=== PATIENT | male | born 1940 | race Caucasian/White ===

== ENCOUNTER 2019-10-07 00:32 | Day surgery (SDC) | payer MEDICARE, BC, SELFPAY ==
[2019-09-25 08:39] VITALS: BP 119/65; PULSE 94; RESP 18; TEMP 36.7; O2SAT 96; BMI 26.7
[2019-10-07] VITALS (13 sets, daily range): BP systolic 112–141; BP diastolic 55–91; PULSE 78–95; RESP 8–20; TEMP 36.2–37.4; O2SAT 92–100
--- NOTE | ~2019-10-07 | XR_ITS ---
EXAMINATION: XR knee LT 2V DATE: 10/07/2019 10:24 INDICATION: Left knee arthroplasty. Postop. TECHNIQUE: 2 views of left knee were obtained. COMPARISON: Left knee radiographs 10/11/2017 FINDINGS: There is a total left knee arthroplasty in near-anatomic alignment with patellar resurfacin g. No fracture. There is gas in the knee joint and soft tissues, consistent with recent surgery. IMPRESSION: 1. Total left knee arthroplasty in near-anatomic alignment. Reviewed, dictated and finalized at location [facility]
[2019-10-07] MEDS: LACTATED RINGERS 1,000 ML 30 ML IV CONT ×2 (06:45→10:10)
--- NOTE | 2019-10-07 06:58 | WPDANESEPPF ---
Anes - Initial Pre Proc Eval Procedure: Operation Date: 10/07/19 07:30 Proposed Procedures p Left Total Knee Arthroplasty - Mansoor Haddad MD Date/Time: 10/07/19 06:58 Surgeon: Mansoor Haddad MD Pre Op Diagnosis: OA Left Knee Patient Data Age: 79 Gender: M Height: 1.91 m Weight: 97 kg Last Vital Signs Temp 36.7 C 09/25/19 08:39 Pulse 94 09/25/19 08:39 Resp 18 09/25/19 08:39 BP 119/65 09/25/19 08:39 Pulse Ox 96 09/25/19 08:39 Allergies Allergy/AdvReac Type Severity Reaction Status Date / Time Penicillins Allergy Mild Rash Verified 09/25/19 08:51 Home Medications Medication Instructions Recorded Confirmed Type aspirin 81 mg tablet,delayed 81 mg PO DAILY 09/17/19 09/25/19 History release calcium polycarbophil 625 mg tablet 1,250 mg PO BID 09/17/19 09/25/19 History ibuprofen 200 mg capsule 200 mg PO Q6H PRN 09/17/19 09/25/19 History lisinopril 10 0.5 tablet PO DAILY tablet 09/17/19 09/25/19 History mg-hydrochlorothiazide 12.5 mg tablet metformin 1,000 mg tablet 1,000 mg PO BID tablet 09/17/19 09/25/19 History polyethylene glycol 3350 17 17 gm PO HS 09/17/19 09/25/19 History gram/dose oral powder tamsulosin 0.4 mg capsule 0.4 mg PO DAILY 09/17/19 09/25/19 History ECG: Date of Service: 09/25/19 Procedure(s): CA 12 lead EKG Accession Number(s): [id number] cc: ~ Measurements Intervals Jaroso Rate: 87 P: 61 NV: 169 QRS: -7 QRSD: 104 T: 30 QT: 362 QTc: 436 Interpretive Statements SINUS RHYTHM BASELINE ARTIFACT- I, II, III, AVR, AVL, AVF NORMAL ECG Electronically Signed On 09-25-2019 9:23:16 LENDING ADVISOR by Dante Lacey D.O. Dictated By: Dante Lacey DO 09/25/19 0934 Other Studies: 2017 negative stress test Patient hx anesthesia problems: none Family hx anesthesia problems: none PMFSH Past Medical History Medical History (Updated 10/02/19 @ 09:30 by Christianne Curry PA-C) Cholecystitis Diabetes Essential hypertension Hyperlipidemia KEMI (iron deficiency anemia) Osteoarthritis of knee Preoperative clearance Type 2 diabetes mellitus without complication, without long-term current use of insulin Surgical History Surgical History History of appendectomy (~1969) History of cholecystectomy (~2008) Social History Social History Smoking status: Never smoker Alcohol intake: current Additional living arrangements comments: Elise Valladares Gender identity (if verbalized by the patient): Male Anes - Eval Final PreProcedure Day of Procedure 10/07/19 06:58 Patient weight: overweight Heart: regular rate and rhythm Lungs: clear to auscultation and normal air movement Airway: Mallampati scale class II Neurological: alert and oriented Last oral intake: >/= 8 hours ASA classification: III Emergent: no Anesthetic plan: proceed Anesthesia type and monitoring: general GIVS Informed Consent: The patient's anesthetic plan and its attendant risks and benefits were discussed with the patient/family/POA. Questions were solicited and answers provided to the satisfaction of the patient/family/POA.
[2019-10-07 07:00] LABS: Glucose Point of Care 129 (65-105)
[2019-10-07] MEDS: TRANEXAMIC ACID 1,000 MG in SODIUM CHLORIDE 0.9% IV 50 ML 120 MG IVPB (07:20)
--- NOTE | 2019-10-07 07:29 | WPDHPUPDATE1 ---
History and Physical Update Update Date/Time: 10/07/19 07:29 History and Physical has been reviewed, including an updated exam of the patient. There are NO changes in the patient's condition. Risks, benefits, and alternatives have been discussed and questions answered. Patient agrees to proceed with procedure.
[2019-10-07] MEDS: ceFAZolin 2 GM/D5W 50 ML 2 GM/50 ML BAG IVPB ×2 (07:35→16:23)
--- NOTE | 2019-10-07 07:47 | WPDANESPNB ---
Anes - Peripheral Nerve Block Date/Time: 10/07/19 07:47 I have discussed with the patient/family/POA the placement of a peripheral nerve block for post-operative pain management, including associated risks, benefits, complications, and side effects. Alternative methods of post-operative analgesia were detailed. Questions were solicited and answers provided to the satisfaction of the patient/family/POA. Time-Out: A pre-procedural Time-Out was completed immediately before starting the procedure and confirmed: Patient Identification, Site, Procedure, Patient Position and the Availability of Requisite Equipment. Clinical Indications: Acute post-operative pain management requested by the operative surgeon. Nerve Block Insertion Note Anes-nerve block: adductor canal left Patient position: supine Skin prep: chlorhexidine Needle: 22 gauge, stimulating, insulated echogenic needle. Needle length: 80 mm Technique: ultrasound Technique comment: in plane Injectate: bupivacaine 0.5% with epi 5 mcg/ml (30cc) Observations: tolerated well Complications: none Procedure start time:: 730 Procedure end time:: 735
[2019-10-07] MEDS: GENTAMICIN BONE CEMENT REFOBACIN 1 EACH TOPICAL (08:20)
[2019-10-07] MEDS: TRANEXAMIC ACID 1,000 MG in SODIUM CHLORIDE 0.9% IV 50 ML 120 MG TOPICAL (08:22)
[2019-10-07] MEDS: ceFAZolin SODIUM 1 GM VIAL IV PUSH (09:26)
--- NOTE | 2019-10-07 10:05 | P.OP_ITS ---
Procedure Note - Detailed Date of procedure: 10/07/19 Pre-op diagnosis: OA Left Knee Post-op diagnosis: same Procedure performed: Left total knee replacement Description of procedure: The patient was identified and proper site identified. In the preop holding area the anesthesia team performed a left sub sartorial block after which the patient was taken to the operating room and transferred to the OR table positioning supine taking care to pad the torso and extremities. After general anesthetic induction and intubation a nonsterile tourniquet was placed high on the left thigh. The left lower extremity was prepped and draped in the usual sterile fashion. The extremity was exsanguinated and with the knee flexed tourniquet was inflated to 300 mmHg remaining up for approximately 65 minutes. An anterior midline incision was made and a mid vastus approach was used. Infra and suprapatellar fat pads were excised. Patella was resected leaving 15 mm thickness and prepared for the 34 round three peg component. Using the intramedullary guide the distal femur was cut in the proper orientation for the size 70 femoral component. Using the extramedullary guide the tibia was cut perpendicular to the long axis protecting collateral ligaments and popliteal structures. It was sized to a 79. Flexion and extension gaps were balanced. Trial reduction was undertaken and the weight-bearing line was noted to passed through the center of the joint. Proximal tibia was drilled and punched in the proper orientation for the real component. Trial components were removed. The bone surfaces were washed with pulsatile lavage and dried. The real components were cemented simultaneously. The knee was held in extension and the patella held clamped until the cement had cured. Excess cement was removed from the joint. After trialing it was determined that the 16 mm insert gave full range of motion from 0-125 degrees of flexion and the patella tracked in the femoral groove with no lift-off. After final lavage the joint the real 1 6 insert was placed and secured with a locking bar. A Betadine and saline wash was placed into the wound and allowed to sit for approximately 3 minutes and then evacuated. Periarticular tissues were infiltrated with 60 cc of the arthroplasty solution. 1 g of tranexamic acid was left in the wound. The extensor mechanism was repaired with #2 Vicryl suture and 0 looped PDS suture. Subcu was reapproximated with two O strata fix and tissue adhesive for the skin. A sterile dressing was applied. He tolerated the procedure well, was awakened and extubated, transferred to the bed and was taken to recovery area in stable condition. There were no known intraoperative complications. Perioperative antibiotics were administered. Surgeon: Mansoor Haddad MD Intake Rn: Christianne Avelar Estimated blood loss (mL): 150 Tourniquet time (min): 65 Drains: No Packing: No Pathology: none sent Complications: No immediate complications Condition: stable Disposition: PACU
[2019-10-07 10:18] LABS: Glucose Point of Care 140 (65-105)
--- NOTE | 2019-10-07 10:36 | SUR.PHASEI ---
1020 xrays left knee done,
--- NOTE | 2019-10-07 11:12 | SUR.PHASEI ---
1050 updated family in waiting room. pt placed upper and lower dentures into mouth.
--- NOTE | 2019-10-07 11:23 | SUR.PHASEI ---
1120 report to bhargavi hernandez
--- NOTE | 2019-10-07 11:30 | PC.NURSE ---
- This patient, Brian Valladares , was admitted to [facility] Surg Room 320-01. Patient/family oriented to hospital policies and general routines including ID bracelet, bed and alarms, visiting hours, pain management, procedures, bathroom and other care routines, personal items, smoking policy, room service/diet, and visiting hours. Valuables list has been completed. Information on how to activate the Rapid Response Team has been discussed. Patient/Family are encouraged to report perceived risks to care and to ask questions if they do not understand what they are told or what they should do.
[2019-10-07 12:33] LABS: Glucose Point of Care 118 (65-105)
[2019-10-07] MEDS: SODIUM CHLORIDE 0.9% IV 1,000 ML 125 ML IV CONT ×2 (12:38→20:35)
--- NOTE | 2019-10-07 17:28 | PM.IMCN ---
Assessment and Plan Assessment and plan (1) Osteoarthritis of knee: Qualifiers: Osteoarthritis type: primary Laterality: bilateral Qualified Code(s): M17.0 - Bilateral primary osteoarthritis of knee Code(s): M17.10 - Unilateral primary osteoarthritis, unspecified knee Status: Acute Assessment and Plan: Brian Valladares Sr. is a 79 year old male with history of diabetes hypertension chronic osteoarthritis of the knee patient had been seen by his orthopedic surgeon and there was no improvement in his left knee pain with conservative management patient was taken to the OR today and had a total right knee arthroplasty, patient states continue with pain is controlled he was able to work with physical therapy, denies any chest pain shortness of breath palpitation fever or chills he denies any polyuria polydipsia, patient be seen by his surgeon and will participate in physical therapy (2) Type 2 diabetes mellitus without complication, without long-term current use of insulin: Code(s): E11.9 - Type 2 diabetes mellitus without complications Status: Acute Assessment and Plan: Patient's metformin is on hold will continue to monitor with sliding scale (3) Essential hypertension: Code(s): I10 - Essential (primary) hypertension Status: Acute Assessment and Plan: Patient list lisinopril is a resume blood pressure is controlled will monitor (4) Hyperlipidemia: Code(s): E78.5 - Hyperlipidemia, unspecified Status: Acute Assessment and Plan: Will continue statin (5) KEMI (iron deficiency anemia): Code(s): D50.9 - Iron deficiency anemia, unspecified Status: Acute Assessment and Plan: Patient is clinically stable will repeat H&H in the morning HPI Data of Consult Consult date: 10/07/19 Requesting Physician: Mansoor Haddad MD Primary Care Provider: Nitin Aldana MD Consult Narrative Narrative: Brian Valladares Sr. is a 79 year old male with history of diabetes hypertension chronic osteoarthritis of the knee patient had been seen by his orthopedic surgeon and there was no improvement in his left knee pain with conservative management patient was taken to the OR today and had a total right knee arthroplasty, patient states continue with pain is controlled he was able to work with physical therapy, denies any chest pain shortness of breath palpitation fever or chills he denies any polyuria polydipsia Review of Systems Review of Systems: All systems reviewed & are unremarkable except as noted in HPI and below PMFSH Past Medical History Medical History (Updated 10/02/19 @ 09:30 by Christianne Curry PA-C) Cholecystitis Diabetes Essential hypertension Hyperlipidemia KEMI (iron deficiency anemia) Osteoarthritis of knee Preoperative clearance Type 2 diabetes mellitus without complication, without long-term current use of insulin Surgical History Surgical History History of appendectomy (~1969) History of cholecystectomy (~2008) Social History Social History Smoking status: Never smoker Alcohol intake: current Drinks per week: 6 Substance use: never Additional living arrangements comments: Elise Valladares Gender identity (if verbalized by the patient): Male Spiritual care concerns: No Agree to blood products: Yes Meds Home Medications and Allergies Home Medications Medication Instructions Recorded Confirmed Type aspirin 81 mg tablet,delayed 81 mg PO DAILY 09/17/19 10/07/19 History release calcium polycarbophil 625 mg tablet 1,250 mg PO BID 09/17/19 10/07/19 History ibuprofen 200 mg capsule 200 mg PO Q6H PRN 09/17/19 10/07/19 History lisinopril 10 0.5 tablet PO DAILY tablet 09/17/19 10/07/19 History mg-hydrochlorothiazide 12.5 mg tablet metformin 1,000 mg tablet 1,000 mg PO BI
[2019-10-07] MEDS: DOCUSATE SODIUM 100 MG CAPSULE PO (17:30)
[2019-10-07] MEDS: CALCIUM POLYCARBOPHIL 625 MG TABLET 1250 MG PO (17:30)
[2019-10-07 18:15] LABS: Glucose Point of Care 99 (65-105)
[2019-10-07 20:21] LABS: Glucose Point of Care 119 (65-105)
[2019-10-07] MEDS: polyethylene glycoL 3350 17 GM POWD.PACK PO (20:37)
[2019-10-07] MEDS: FAMOTIDINE 20 MG TABLET PO (20:38)
[2019-10-08] MEDS: ceFAZolin 2 GM/D5W 50 ML 2 GM/50 ML BAG IVPB ×2 (00:07→07:33)
[2019-10-08 03:22] VITALS: BP 117/55; PULSE 92; RESP 20; TEMP 37.4; O2SAT 94
[2019-10-08 05:51] VITALS: BP 130/63; PULSE 92; RESP 20; TEMP 37.5; O2SAT 94
[2019-10-08 06:07] LABS: Basophils Percent Auto 0.5 % (0.2-1.2); Eosinophils Absolute Auto 0.2 K/mm3 (0-0.3); Eosinophils Percent Auto 3.4 % (0-4.4); Hematocrit 31.8 % (42.0-52.0); Hemoglobin 10.5 g/dL (14.0-18.0); Immature Granulocyte Absolute 0.01 K/mm3 (0.00-0.031); Immature Granulocyte Percent A 0.2 % (0-0.5); Lymphocytes Absolute Auto 0.88 K/mm3 (0.9-3.2); Lymphocytes Percent Auto 15.9 % (18.3-44.2); Mean Corpuscular Hemoglobin 30.5 pg (26-34); Mean Corpuscular Volume 92.4 fl (80-100); Mean Platelet Volume 9.5 fl (7.4-10.4); Monocytes Absolute Auto 0.7 K/mm3 (0.1-0.6); Monocytes Percent Auto 11.8 % (2.6-8.5); Neutrophils Absolute Auto 3.8 K/mm3 (1.3-6.7); Neutrophils Percent Auto 68.2 % (45.5-73.1); Platelet Count Result 225 k/mm3 (150-375); Red Blood Count 3.44 M/mm3 (4.6-6.20); Red Cell Distribution Width 12.1 % (11.5-14.5); White Blood Count 5.5 K/mm3 (4.5-10.0)
[2019-10-08 06:20] LABS: Blood Urea Nitrogen 24 mg/dL (9-20); Calcium 8.4 mg/dL (8.4-10.2); Carbon Dioxide 25 mmol/L (22-30); Chloride 101 mmol/L (98-107); Estimated CRCL calculation 56 ml/min; Estimated Glomerular Filt Rate > 60; Glucose 110 mg/dL (75-110); Potassium 4.3 mmol/L (3.4-5.0); Sodium 132 mmol/L (137-145)
[2019-10-08 08:12] LABS: Glucose Point of Care 123 (65-105)
[2019-10-08] MEDS: RIVAROXABAN 10 MG TABLET PO (09:04)
[2019-10-08] MEDS: DOCUSATE SODIUM 100 MG CAPSULE PO (09:04)
[2019-10-08] MEDS: lisinopriL 5 MG TABLET PO (09:04)
[2019-10-08] MEDS: FAMOTIDINE 20 MG TABLET PO (09:04)
[2019-10-08] MEDS: TAMSULOSIN HCL 0.4 MG CAPSULE PO (09:04)
[2019-10-08] MEDS: CALCIUM POLYCARBOPHIL 625 MG TABLET 1250 MG PO (09:05)
[2019-10-08] MEDS: hydroCHLOROthiazide 6.25 MG TABLET PO (09:05)
[2019-10-08] MEDS: ONDANSETRON INJ 4 MG/2 ML VIAL IV PUSH (09:33)
--- NOTE | 2019-10-08 09:39 | WPDANESPN ---
Anes - Prog Note Post-Op Date/Time: 10/08/19 09:39 Cardiovascular status: normal Respiratory status: normal Airway patency: baseline Mental status: baseline Post-Op hydration status: normal Vital Signs: Last Vital Signs Temp 37.5 C 10/08/19 05:51 Pulse 92 10/08/19 05:51 Resp 20 10/08/19 05:51 BP 130/63 10/08/19 05:51 Pulse Ox 94 10/08/19 05:51 I/O: Intake & Output 10/07/19 10/08/19 10/08/19 23:59 07:59 15:59 Intake Total 1050 750 Output Total 600 Balance 1050 150 Laboratory Tests 10/08/19 05:47 10/08/19 05:47 10/07/19 10/07/19 10/07/19 10:17 12:30 18:13 WBC RBC Hgb Hct MCV MCH MCHC RDW Plt Count MPV Immature Gran % (Auto) Neut % (Auto) Lymph % (Auto) Pratt % (Auto) Eos % (Auto) Baso % (Auto) Lymph # (Auto) Pratt # (Auto) Eos # (Auto) Baso # (Auto) Abs Immat Gran (auto) Absolute Neuts (auto) Absolute Nucleated RBC Nucleated RBC % Sodium Potassium Chloride Carbon Dioxide BUN Creatinine Estim Creat Clear Calc Estimated GFR Glucose POC Capillary Glucose 140 H 118 H 99 Calcium 10/07/19 10/08/19 10/08/19 20:18 05:47 05:47 WBC 5.5 RBC 3.44 L Hgb 10.5 L Hct 31.8 L MCV 92.4 MCH 30.5 MCHC 33.0 RDW 12.1 Plt Count 225 MPV 9.5 Immature Gran % (Auto) 0.2 Neut % (Auto) 68.2 Lymph % (Auto) 15.9 L Pratt % (Auto) 11.8 H Eos % (Auto) 3.4 Baso % (Auto) 0.5 Lymph # (Auto) 0.88 L Pratt # (Auto) 0.7 H Eos # (Auto) 0.2 Baso # (Auto) 0.0 Abs Immat Gran (auto) 0.01 Absolute Neuts (auto) 3.8 Absolute Nucleated RBC 0.0 Nucleated RBC % 0.0 Sodium 132 L Potassium 4.3 Chloride 101 Carbon Dioxide 25 BUN 24 H Creatinine 1.10 Estim Creat Clear Calc 56 Estimated GFR > 60 Glucose 110 POC Capillary Glucose 119 H Calcium 8.4 10/08/19 08:02 WBC RBC Hgb Hct MCV MCH MCHC RDW Plt Count MPV Immature Gran % (Auto) Neut % (Auto) Lymph % (Auto) Pratt % (Auto) Eos % (Auto) Baso % (Auto) Lymph # (Auto) Pratt # (Auto) Eos # (Auto) Baso # (Auto) Abs Immat Gran (auto) Absolute Neuts (auto) Absolute Nucleated RBC Nucleated RBC % Sodium Potassium Chloride Carbon Dioxide BUN Creatinine Estim Creat Clear Calc Estimated GFR Glucose POC Capillary Glucose 123 H Calcium Post-procedural complaints: none Patient Feedback: Patient satisfied with anesthetic care.
[2019-10-08 10:00] VITALS: BP 115/66; PULSE 111; RESP 18; TEMP 37.4; O2SAT 95
--- NOTE | 2019-10-08 12:38 | PM.PNORT ---
Progress Note: A&P Assessment and Plan (1) Osteoarthritis of knee: Qualifiers: Osteoarthritis type: primary Laterality: bilateral Qualified Code(s): M17.0 - Bilateral primary osteoarthritis of knee Code(s): M17.10 - Unilateral primary osteoarthritis, unspecified knee Status: Acute Assessment and Plan: Doing well postop day one from left knee replacement. Discharge home today. Instructions were reviewed in detail. Time Spent With Patient Time with patient: 15 - 25 minutes Subjective Subjective Date/Time Seen: 10/08/19 12:38 Post Op day: 1 (Status post left total knee replacement) Review of Systems Constitutional: Constitutional: Denies chills and Denies fever(s) Eyes: Eyes: Reports no additional eye complaints ENT: Reports system reviewed and no additional complaints, except as documented Cardiovascular: Cardiovascular: Denies chest pain and Denies dyspnea on exertion Respiratory: Respiratory: Reports no additional respiratory complaints and Denies dyspnea on exertion Gastrointestinal: Gastrointestinal: Denies abdominal pain and Denies bloating Exam Const: General: cooperative, no acute distress and alert Nutritional Appearance: other Orientation/consciousness: patient oriented x3 Limitations: no limitations HENMT: Head: normal to inspection Ears: hearing grossly normal bilaterally Face and sinus: face symmetric Mouth: Yes moist mucous membranes Teeth and gingiva: fair dentition Eyes: Alignment and Position: alignment normal and position normal Sclera: sclerae normal Neck: Neck: normal visual inspection and nontender Chest: Chest palpation & inspection: normal inspection of the chest Resp: Effort & Inspection: normal respiratory effort and able to speak in complete sentences GI: Inspection: other (Nontender, nondistended) Skin: General skin exam: normal color Rashes: no rashes Neuro: General: patient oriented x3 Cognition (Neuro): normal cognition Speech: normal speech Gait exam (Neuro): Other gait observations present Motor exam (neuro): 5/5 motor strength present throughout (Left lower extremity) Sensory Exam: normal sensation Extrem: General: normal to inspection and other Other: Exam of the left knee shows a dry dressing with very little swelling and no erythema. Calves are negative. Grossly motor and sensory function intact to left leg. Psych: Appearance: grossly normal Mental Status: mental status grossly normal Objective Data Vital Signs Vital Signs: Vital Signs - 24 hr 10/07/19 13:24 10/07/19 20:00 10/07/19 22:00 Temperature 97.6 F 99.4 F Pulse Rate 91 87 95 Respiratory Rate 18 16 20 Blood Pressure 112/55 L 141/61 H Pulse Oximetry 98 92 96 10/08/19 03:22 10/08/19 05:51 10/08/19 10:00 Temperature 99.3 F 99.5 F 99.3 F Pulse Rate 92 92 111 H Respiratory Rate 20 20 18 Blood Pressure 117/55 L 130/63 115/66 Pulse Oximetry 94 94 95 Intake/Output Intake/Output: Intake & Output 10/05/19 10/06/19 10/07/19 10/08/19 23:59 23:59 23:59 23:59 Intake Total 1710 / 1710 750 / 750 Output Total 600 / 600 Balance 1710 / 1710 150 / 150 Meds/Results Medications: Active Medications Generic Name Dose Route Start Last Admin Trade Name Freq PRN Reason Stop Dose Admin Calcium Polycarbophil 1,250 mg 10/07/19 17:00 10/08/19 09:05 Fiber Con PO 1,250 mg BID POP Administration Dextrose 12.5 gm 10/07/19 18:32 Dextrose 50% Syringe IV PUSH PRN PRN Hypoglycemia Protocol Docusate Sodium 100 mg 10/07/19 17:00 10/08/19 09:04 Colace Cap PO 100 mg BID POP Administration Famotidine 20 mg 10/07/19 21:00 10/08/19 09:04 Pepcid PO 20 mg Q12HR POP Administration Glucagon 1 mg 10/07/19 18:32 Glucagon For Inj IM PRN PRN Hypoglycemia Protocol Glucose 15 gm 10/07/19 18:32 Glutose 15 PO PRN PRN Hypoglycemia Protocol Hydrochlorothiazide 6.25 mg
--- NOTE | 2019-10-08 12:45 | PM.DS ---
DS: Diagnosis Admitting Diagnosis Admitting Diagnosis: Essential (primary) hypertension Discharge Diagnosis (1) Osteoarthritis of knee: Qualifiers: Osteoarthritis type: primary Laterality: bilateral Qualified Code(s): M17.0 - Bilateral primary osteoarthritis of knee Code(s): M17.10 - Unilateral primary osteoarthritis, unspecified knee Status: Acute DS: Summary Hospital Course Reason for hospitalization: Left total knee replacement Hospital Course: Following the base and surgery, therapy was begun any made excellent progress. Discharged home on postop day one Status at Discharge Functional status at discharge: uses cane/walker Time Spent with Patient Time attestation: Total time spent providing and/or coordinating discharge services:20 min DS: Data Data Completed and Pending Labs on day of discharge: Labs from last 24 hours 10/08/19 10/08/19 10/08/19 08:02 05:47 05:47 WBC 5.5 RBC 3.44 L Hgb 10.5 L Hct 31.8 L MCV 92.4 MCH 30.5 MCHC 33.0 RDW 12.1 Plt Count 225 MPV 9.5 Immature Gran % (Auto) 0.2 Neut % (Auto) 68.2 Lymph % (Auto) 15.9 L [place] % (Auto) 11.8 H Eos % (Auto) 3.4 Baso % (Auto) 0.5 Lymph # (Auto) 0.88 L [place] # (Auto) 0.7 H Eos # (Auto) 0.2 Baso # (Auto) 0.0 Abs Immat Gran (auto) 0.01 Absolute Neuts (auto) 3.8 Absolute Nucleated RBC 0.0 Nucleated RBC % 0.0 Sodium 132 L Potassium 4.3 Chloride 101 Carbon Dioxide 25 BUN 24 H Creatinine 1.10 Estim Creat Clear Calc 56 Estimated GFR > 60 Glucose 110 POC Capillary Glucose 123 H Calcium 8.4 10/07/19 10/07/19 20:18 18:13 WBC RBC Hgb Hct MCV MCH MCHC RDW Plt Count MPV Immature Gran % (Auto) Neut % (Auto) Lymph % (Auto) [place] % (Auto) Eos % (Auto) Baso % (Auto) Lymph # (Auto) [place] # (Auto) Eos # (Auto) Baso # (Auto) Abs Immat Gran (auto) Absolute Neuts (auto) Absolute Nucleated RBC Nucleated RBC % Sodium Potassium Chloride Carbon Dioxide BUN Creatinine Estim Creat Clear Calc Estimated GFR Glucose POC Capillary Glucose 119 H 99 Calcium Discharge Plan Discharge Patient Disposition: Home, Self-Care Discharge Instructions: Call [phone] and ask for Ana with any questions prior to follow-up. Please replace the dressing on 10/04/2019 with the one provided by the hospital. Okay to shower with dressing in place. 3 times daily for 20 minutes apiece, lay in bed with pillow underneath the left calf and ice bags on the knee. Be careful not to freeze the skin. For the 1st 2-3 days after your surgery, take the prescribed pain medication on a schedule. After switching to the scheduled arthritis formula Tylenol, you may take up to four of the pain pills per day in addition to the scheduled Tylenol. Can switched to the scheduled Tylenol in three or four days, rather than five. Do your physical therapy exercises once or twice daily for the 1st week. Your formal therapy begins in one week. The day after the Xarelto is completed, begin taking enteric coated aspirin 81 mg daily and do this for a total of 28 more days. Patient Instructions: Pain Management Older Adults (DC), Precautions after Total Joint Replacement Surgery (DC), Knee Replacement (DC) Discharge Medications: New oxycodone-acetaminophen 5-325 mg Tablet 1 tablet PO Q4HR Qty: 40 RF: 0 Xarelto 10 mg Tablet 10 mg PO QAM Qty: 13 RF: 0 Continued metformin 1,000 mg tablet 1,000 mg PO BID RF: 0 tamsulosin 0.4 mg capsule 0.4 mg PO DAILY RF: 0 lisinopril-hydrochlorothiazide 10-12.5 mg tablet 0.5 tablet PO DAILY RF: 0 calcium polycarbophil [FiberCon] 625 mg tablet 1,250 mg PO BID RF: 0 polyethylene glycol 3350 [Miralax] 17 gram/dose powder 17 gm PO HS RF: 0 Held aspirin [Adult Low Dose Aspirin] 81 mg tablet,delayed release
--- NOTE | 2019-10-08 12:51 | PM.IMPN ---
Subjective Date/time seen: 10/08/19 12:51 Interval history: Brian Valladares Sr. is a 79 year old male with history of diabetes hypertension chronic osteoarthritis of the knee had a total right knee arthroplasty, pt is currently not in his bed, in day care rehab, pt discharged by orthopedics prior to me seeing him. Continue orthopedic discharge instruction, continue home medications as before. Objective Data Vital Signs Vital Signs: Vital Signs - 24 hr 10/07/19 13:24 10/07/19 20:00 10/07/19 22:00 Temperature 36.4 C 37.4 C Pulse Rate 91 87 95 Respiratory Rate 18 16 20 Blood Pressure 112/55 L 141/61 H Pulse Oximetry 98 92 96 10/08/19 03:22 10/08/19 05:51 10/08/19 10:00 Temperature 37.4 C 37.5 C 37.4 C Pulse Rate 92 92 111 H Respiratory Rate 20 20 18 Blood Pressure 117/55 L 130/63 115/66 Pulse Oximetry 94 94 95 Intake/Output Intake/Output: Intake & Output 10/05/19 10/06/19 10/07/19 10/08/19 23:59 23:59 23:59 23:59 Intake Total 1710 750 Output Total 600 Balance 1710 150 Meds/Results Medications: Active Medications Generic Name Dose Route Start Last Admin Trade Name Freq PRN Reason Stop Dose Admin Calcium Polycarbophil 1,250 mg 10/07/19 17:00 10/08/19 09:05 Fiber Con PO 1,250 mg BID POP Administration Dextrose 12.5 gm 10/07/19 18:32 Dextrose 50% Syringe IV PUSH PRN PRN Hypoglycemia Protocol Docusate Sodium 100 mg 10/07/19 17:00 10/08/19 09:04 Colace Cap PO 100 mg BID POP Administration Famotidine 20 mg 10/07/19 21:00 10/08/19 09:04 Pepcid PO 20 mg Q12HR POP Administration Glucagon 1 mg 10/07/19 18:32 Glucagon For Inj IM PRN PRN Hypoglycemia Protocol Glucose 15 gm 10/07/19 18:32 Glutose 15 PO PRN PRN Hypoglycemia Protocol Hydrochlorothiazide 6.25 mg 10/08/19 09:00 10/08/19 09:05 Hydrochlorothiazide PO 6.25 mg QAM POP Administration Dextrose 1,000 mls @ 100 mls/hr 10/07/19 18:32 Dextrose 5% 1,000 Ml IVPB PRN PRN Hypoglycemia Protocol Insulin Aspart 2 - 5 units 10/08/19 08:00 10/08/19 08:02 Novolog SUB-Q Not Given [facility] Protocol Lisinopril 5 mg 10/08/19 09:00 10/08/19 09:04 Prinivil PO 5 mg QAM POP Administration Naloxone HCl 0.1 mg 10/07/19 11:23 Narcan IV PUSH Q2M PRN Opiate Reversal Ondansetron HCl 4 mg 10/07/19 11:23 10/08/19 09:33 Zofran Inj IV PUSH 4 mg Q4H PRN Administration Nausea And Vomiting Oxycodone HCl 5 mg 10/07/19 11:23 10/08/19 07:32 Roxicodone Ir Tablet PO 5 mg Q4H PRN Administration Pain Rated 7-10 Oxycodone/Acetaminophen 1 tablet 10/07/19 13:00 10/08/19 08:57 Percocet 5-325 Mg PO 10/08/19 13:01 1 tablet Q4HR POP Administration Polyethylene Glycol 17 gm 10/07/19 21:00 10/07/19 20:37 Miralax PO 17 gm HS POP Administration Rivaroxaban 10 mg 10/08/19 09:00 10/08/19 09:04 Xarelto PO 10/19/19 09:01 10 mg QAM POP Administration Tamsulosin HCl 0.4 mg 10/08/19 09:00 10/08/19 09:04 Flomax PO 0.4 mg DAILY POP Administration Radiology Results: ITS Impressions Knee X-Ray 10/07/19 10:46 IMPRESSION: 1. Total left knee arthroplasty in near-anatomic alignment. Labs Labs: Laboratory Results - last 24 hr 10/07/19 10/07/19 10/08/19 18:13 20:18 05:47 WBC 5.5 RBC 3.44 L Hgb 10.5 L Hct 31.8 L MCV 92.4 MCH 30.5 MCHC 33.0 RDW 12.1 Plt Count 225 MPV 9.5 Immature Gran % (Auto) 0.2 Neut % (Auto) 68.2 Lymph % (Auto) 15.9 L [place] % (Auto) 11.8 H Eos % (Auto) 3.4 Baso % (Auto) 0.5 Lymph # (Auto) 0.88 L [place] # (Auto) 0.7 H Eos # (Auto) 0.2 Baso # (Auto) 0.0 Abs Immat Gran (auto) 0.01 Absolute Neuts (auto) 3.8 Absolute Nucleated RBC 0.0 Nucleated RBC % 0.0 Sodium Potassium Chloride Carbon Dioxide BUN Creatinine
[2019-10-08 12:54] LABS: Glucose Point of Care 188 (65-105)
== END 2019-10-08 15:40 | disposition home or self-care (01) ==
LOC: ANHSURGERY 05:57 → ANH3MEDSUR 11:26
PROVIDERS: PCP Family Medicine; Visit Provider Orthopaedic Surgery
PROC: (CPT 27447; principal; 2019-10-07 07:30)
DX: M17.12 Unilateral primary osteoarthritis, left knee (principal); G89.18 Other acute postprocedural pain; D50.9 Iron deficiency anemia, unspecified; I10 Essential (primary) hypertension; E11.9 Type 2 diabetes mellitus without complications; E78.5 Hyperlipidemia, unspecified; Z79.84 Long term (current) use of oral hypoglycemic drugs; Z79.82 Long term (current) use of aspirin
CPT/HCPCS: 27447; 64447; 36415; 73560; 80048; 85025; 97110; 97116; 97161; 97530; 97535; A9270; C1713; C1776; J0131; J0171; J0690; J1170; J1885; J2250; J2270; J2370; J2405; J2704; J2795; J3010; J7030; J7120

== ENCOUNTER 2019-11-21 14:00 | Outpatient (RCR) | payer MEDICARE, BC, SELFPAY ==
--- NOTE | 2019-10-14 09:12 | PTOPEVAL ---
PHYSICAL THERAPY EVALUATION AND PLAN OF CARE Thank you for referring this patient to [facility]. Brian is scheduled to participate in PT 2x/week for 4 weeks. Please review, sign, date and return this plan of care JUAN. I agree with and certify that the following plan of care is medically necessary. Referring Physician Date Attending Provider: Mansoor Haddad MD Evaluation Evaluation Information Diagnosis left TKA Onset 10/07/2019 Cause knee OA Subjective Information Brian is here s/p 1 week from Query Text:As Reported By Patient/ left TKA surgery. He reports Family difficulty with his exercises and with stiffness in the knee . He also reports difficulty walking and bending and straightening Pain Assessment Self Report Pain Assessment Left Knee(s) Reported Pain Level 2 Pain Description Aching Pain Frequency Acute Current Pain Intensity 2 Lowest Pain Intensity 1 Greatest Pain Intensity 8 Pain Aggravating Factors Stair Climbing,Walking Pain Behaviors None Pain Relief Interventions Used By Ice,Medication Knee Range of Motion Left Knee Flexion Range of Motion - Active 60 Knee Flexion Range of Motion - Passive 73 Knee Extension Range of Motion - Active 5 Knee Strength Left Knee Flexion Strength 3+ Fair + Knee Extension Strength 3+ Fair + Palpation Assessment thick and tight leg due to edema Edema Assessment Left Leg Type Dependent,Pitting Edema Degree 2+ (2-4 mm) Gait Assessment Gait Assessment Ambulation Assistive Devices Walker, Wheeled Weight Bearing Status - Left As Tolerated Weight Bearing Status - Right Full Maintains Weight Bearing Status Yes Ambulation Destination In Gym Ambulation Ability Independent Gait Pattern Assessment Step-to Gait Gait Pattern Observed Decreased Stride Length - Right,No Heel Strike - Left Other Gait Observations cues for normalizing gait pattern: step through and heel to toe gait pattern Clinical Summary Brian is an 79 yo male presenting to outpatient physical therapy 1 week s/p left TKA. He present today with significantly limited left knee ROM and strength. He has an impaired gait pattern, limited stai
--- NOTE | 2019-10-17 08:17 | PCPTNOTE ---
Patient called & cancelled scheduled appointment this date due to weather
--- NOTE | 2019-11-12 08:51 | PTOPEVAL ---
PHYSICAL THERAPY PLAN OF CARE UPDATE AND PROGRESS REPORT Thank you for referring this patient to [facility]. I recommend Brian continue PT 2x/week for 4 weeks for increased emphasis on quadriceps strengthening. Please review, sign, date and return this plan of care JUAN. I agree with and certify that the following plan of care is medically necessary. Referring Physician Date Attending Provider: Mansoor Haddad MD Re-evaluation Evaluation Information Diagnosis left TKA Onset 10/07/2019 Cause knee OA Subjective Information Brian is here s/p 5 week from Query Text:As Reported By Patient/ left TKA surgery. Reports Family steady progress toward returning to optimal function. He is gradually returning to normal activities. Currently feels as though his gait is not quite good enough and that his strength is not sufficient for stair climbing and getting out of a chair. Pain Assessment Left Knee(s) Reported Pain Level 1 Pain Description Aching,Tightness Pain Aggravating Factors Stair Climbing,Walking Pain Behaviors None Knee Range of Motion Left Knee Flexion Range of Motion - Active 108 Knee Flexion Range of Motion - Passive 112 Knee Extension Range of Motion - Active 0 Query Text: Lower Extremity Muscle Strength Testing Hip Strength Left Hip Flexion Strength 4+ Good + Hip Extension Strength 4- Good - Hip Abduction Strength 4- Good - Knee Strength Left Knee Flexion Strength 4+ Good + Knee Extension Strength 4+ Good + Balance Assessment Time in Seconds 31.22Seconds 5 Time Sit to Stand Comments without use of armrests; needs Query Text:Normative Data: If Greater to concentrate on slowly Than 15 Seconds, 74% Increase Risk for lowering Recurrent Falls Gait Assessment Ambulation Assistive Devices None Weight Bearing Status - Left As Tolerated Weight Bearing Status - Right Full Maintains Weight Bearing Status Yes Ambulation Destination In Gym Ambulation Ability Independent Gait Pattern Assessment Gait Pattern Trendelenburg Gait Other Gait Observations decreased knee flexion during swing phase on left Stair Climbing Assessment Stair Climbing Assistive Devices Railings Weight Bearing Status - Left As Tolerated Weight Bearing Status - Right Full Maintains Weight Bearing Status Yes Number of Steps Climbed (Steps) 7 Number of Repetitions (Repetitions) 1 Technique
--- NOTE | 2019-11-25 12:51 | PCPTNOTE ---
Patient called & cancelled scheduled appointment this week due to being sick.
--- NOTE | 2019-12-02 09:11 | PCPTNOTE ---
PHYSICAL THERAPY DISCHARGE NOTE Attending Provider: Mansoor Haddad MD Patient:Brian Valladares Sr. Date of :1940 Brian cancelled his remaining physical therapy appointments due to COVID-19 precautions. His last re-assessment was on 11/12/2019. At his last attended appointment on 11/21/2019, his left TKA measured ROM of at least 110degrees flexion. All other goals have not been assessed. Brian's current account will be discharged at this time. Thank you for referring Brian to [facility]. Please review, sign, date and return this discharge summary JUAN. I have been updated about the patient's current status and I agree with discharge from the above service at this time. Referring Physician Date
--- NOTE | 2019-12-02 09:39 | PCPTNOTE ---
Patient called & cancelled remaining scheduled appointment due to COVID-19 with reschedule after pandemic.
== END 2019-12-02 13:53 | disposition home or self-care (01) ==
LOC: ANHPT 14:00
PROVIDERS: PCP Family Medicine; Visit Provider Orthopaedic Surgery
DX: M17.12 Unilateral primary osteoarthritis, left knee (principal)
CPT/HCPCS: 97110; 97140; 97161

== ENCOUNTER 2019-12-18 10:38 | Outpatient (CLI) | payer MEDICARE, BC, SELFPAY ==
--- NOTE | ~2019-12-18 | CT_ITS ---
EXAMINATION: CT abdomen pelvis wo con EXAM DATE: 12/18/2019 11:02 INDICATION: Hematuria. TECHNIQUE: Spiral CT of the abdomen and pelvis was performed without contrast. Axial, coronal and sag ittal images were reviewed. The dose-length product (DLP) for this examination was 629.97 mGy-cm. T he exposure was tailored according to patient size (auto mA exposure control), and iterative reconstr uction (ASIR) was used as additional dose reduction technique. Comparison is made to prior examinatio n from 12/29/2011. FINDINGS: There is severe right renal atrophy, mild to moderate left renal atrophy. There is a left r enal cyst measuring 3.8 cm. No nephrolithiasis or hydronephrosis. The prostate is unremarkable. The bladder is unremarkable. There is colonic interposition. The liver, spleen, adrenal glands and pancr eas are unremarkable. There are cholecystectomy clips. There is no retroperitoneal or pelvic lympha denopathy. There is mild to moderate scattered arteriosclerotic disease. The appendix is not positively visualized. There is no pericecal inflammatory change to suggest appe ndicitis. The stomach and small bowel are unremarkable. There is mild sigmoid colonic diverticulosi s. There is no adjacent inflammatory change to suggest diverticulitis. No free intraperitoneal gas . The heart is normal in size. There are no pericardial or pleural effusions. Left lower lobe 6 c m granuloma unchanged. There is right basilar subsegmental atelectasis. There are no osteoblastic or osteolytic lesions identified. IMPRESSION: 1. Severe right renal atrophy. 2. Scattered colonic diverticulosis. Reviewed, dictated and finalized at location B.
== END 2019-12-18 10:39 | disposition home or self-care (01) ==
PROVIDERS: PCP Family Medicine; Visit Provider Physician Assistant
DX: R31.9 Hematuria, unspecified (principal); K57.30 Diverticulosis of large intestine without perforation or abscess without bleeding; N28.89 Other specified disorders of kidney and ureter
CPT/HCPCS: 74176

== ENCOUNTER 2020-03-03 00:08 | Outpatient (CLI) | payer MEDICARE, BC, SELFPAY ==
[2020-03-03 18:55] LABS: SARS-CoV-2 RNA PCR Negative
== END 2020-03-03 00:09 | disposition home or self-care (01) ==
LOC: ANHCOVIDDT 00:08
PROVIDERS: Orthopaedic Surgery; PCP Family Medicine; Visit Provider Urology
DX: Z01.818 Encounter for other preprocedural examination (principal); Z11.59 Encounter for screening for other viral diseases; R31.0 Gross hematuria
CPT/HCPCS: 87635; C9803; U0003

== ENCOUNTER 2020-03-03 09:41 | Outpatient (CLI) | payer MEDICARE, BC, SELFPAY ==
[2020-03-03 10:35] LABS: Blood Urea Nitrogen 25 mg/dL (9-20); Calcium 9.3 mg/dL (8.4-10.2); Carbon Dioxide 25 mmol/L (22-30); Chloride 105 mmol/L (98-107); Estimated Glomerular Filt Rate > 60; Glucose 100 mg/dL (75-110); Potassium 4.1 mmol/L (3.4-5.0); Sodium 135 mmol/L (137-145)
== END 2020-03-03 09:42 | disposition home or self-care (01) ==
LOC: ANHSURGERY 09:43
PROVIDERS: Anesthesiology; PCP Family Medicine; Visit Provider Urology
DX: Z01.818 Encounter for other preprocedural examination (principal); E11.9 Type 2 diabetes mellitus without complications
CPT/HCPCS: 36415; 80048; 87635; C9803; U0003

== ENCOUNTER 2020-03-05 01:31 | Day surgery (SDC) | payer MEDICARE, BC, SELFPAY ==
[2020-03-02 15:51] VITALS: BMI 25.6
[2020-03-05 06:38] VITALS: BP 125/57; PULSE 81; RESP 18; TEMP 36.5; O2SAT 98
[2020-03-05] MEDS: LACTATED RINGERS 1,000 ML 30 ML IV CONT (06:40)
[2020-03-05 06:45] LABS: Glucose Point of Care 103 (65-105)
--- NOTE | 2020-03-05 07:11 | WPDANESEPPF ---
Anes - Initial Pre Proc Eval Procedure: Operation Date: 03/05/20 07:30 Proposed Procedures p Cystoscopy, Bladder Biopsy - Elliot Redman MD Date/Time: 03/05/20 07:11 Surgeon: Elliot Redman MD Pre Op Diagnosis: gross hematuria Patient Data Age: 80 Gender: M Height: 1.91 m Weight: 93 kg Allergies Allergy/AdvReac Type Severity Reaction Status Date / Time Penicillins Allergy Mild Rash Verified 03/05/20 07:06 Home Medications Medication Instructions Recorded Confirmed Type lisinopril 10 0.5 tablet PO DAILY tablet 09/17/19 03/02/20 History mg-hydrochlorothiazide 12.5 mg tablet polyethylene glycol 3350 17 17 gm PO HS 09/17/19 03/02/20 History gram/dose oral powder metformin 1,000 mg tablet 1,000 mg PO BID #180 tablet 10/22/19 03/02/20 Rx tamsulosin 0.4 mg capsule 0.4 mg PO DAILY #90 cap 01/20/20 03/02/20 Rx acetaminophen [Tylenol Arthritis 650 mg PO Q12H PRN 02/17/20 03/02/20 History Pain] Laboratory Tests 03/05/20 06:42 POC Capillary Glucose 103 mg/dl mg/dl (65-105) Patient hx anesthesia problems: none Family hx anesthesia problems: none PMFSH Social History Social History Smoking status: Never smoker Second hand tobacco smoke exposure: No Alcohol intake: current Drinks per week: 6 Substance use: never Substance use type: does not use Additional living arrangements comments: Elise Valladares Gender identity (if verbalized by the patient): Male Spiritual care concerns: No Agree to blood products: Yes Anes - Eval Final PreProcedure Day of Procedure 03/05/20 07:11 Patient weight: overweight Heart: regular rate and rhythm Lungs: clear to auscultation and normal air movement Airway: Mallampati scale class II Neurological: alert and oriented Last oral intake: >/= 8 hours ASA classification: III Emergent: no Anesthetic plan: proceed Anesthesia type and monitoring: general GIVS and standard monitoring Informed Consent: The patient's anesthetic plan and its attendant risks and benefits were discussed with the patient/family/POA. Questions were solicited and answers provided to the satisfaction of the patient/family/POA.
--- NOTE | 2020-03-05 07:16 | WPDHPUPDATE1 ---
History and Physical Update Update Date/Time: 03/05/20 07:16 History and Physical has been reviewed, including an updated exam of the patient. There are NO changes in the patient's condition. Risks, benefits, and alternatives have been discussed and questions answered. Patient agrees to proceed with procedure.
[2020-03-05] MEDS: ceFAZolin 2 GM/D5W 50 ML 2 GM/50 ML BAG IVPB (07:20)
[2020-03-05] MEDS: LIDOCAINE HCL 2% GEL UROJET 10 ML PKG MUCOUS MEM (07:32)
--- NOTE | 2020-03-05 07:49 | P.OP_ITS ---
Procedure Note - Detailed Date of procedure: 03/05/20 Pre-op diagnosis: gross hematuria Post-op diagnosis: same (Bladder cancer) Procedure performed: TURBT (medium, 3-4cm) Description of procedure: The patient was brought to the operative suite where he is prepped and draped in a routine sterile fashion while in the dorsal lithotomy position. This is done after the uneventful administration of systemic sedation. 2% Xylocaine jelly is introduced intraurethrally and allowed to stand for an appropriate period of time. A 24F resectoscope sheath was placed in the bladder and the bladder is circumferentially inspected carefully. 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 This surrounds, but does not involve the right ureteral orifice. This area is resected in its entirety with an attempt made to include detrusor muscle for pathological evaluation of invasion. The base and periphery of this resected side is cauterized with a loop electrode. The bladder is emptied and the resectoscope was removed. The patient is taken to the recovery room having tolerated this procedure well. Anesthesia: GLMA Surgeon: Elliot Redman MD Offset Assistant Press Operator: None Drains: No Packing: No Pathology: yes (Bladder tumor) Complications: No immediate complications Condition: stable Disposition: PACU
[2020-03-05 08:00] VITALS: BP 102/64; PULSE 72; RESP 18; O2SAT 92
[2020-03-05 08:02] LABS: Glucose Point of Care 82 (65-105)
[2020-03-05 08:30] VITALS: BP 103/62; PULSE 53; RESP 16
== END 2020-03-05 08:59 | disposition home or self-care (01) ==
PROVIDERS: PCP Family Medicine; Visit Provider Urology
PROC: 0TBB8ZX Excision of Bladder, Via Natural or Artificial Opening Endoscopic, Diagnostic (ICD-10-PCS; CPT 52204; principal; 2020-03-05 07:30)
DX: C67.2 Malignant neoplasm of lateral wall of bladder (principal)
CPT/HCPCS: 52235; 88305; 88307; A9270; J0690; J2250; J2405; J2704; J3010; J7120

== ENCOUNTER 2020-03-18 12:17 | Inpatient (IN) | payer MEDICARE, BC, SELFPAY ==
[2020-03-18] VITALS (10 sets, daily range): BP systolic 105–133; BP diastolic 50–86; PULSE 76–111; RESP 16–20; TEMP 36.6–38.7; O2SAT 95–98; BMI 25.4
--- NOTE | ~2020-03-18 | XR_ITS ---
EXAMINATION: XR chest 2V DATE: 03/19/2020 15:03 INDICATION: Cough and fever. TECHNIQUE: Frontal and lateral views of the chest were obtained. COMPARISON: Chest 2 views 03/10/2017, CT abdomen and pelvis 03/18/2020 FINDINGS: There is chronic mild elevation of right hemidiaphragm. No pneumonia, pleural effusion, or pneumothorax. The heart size is normal. Surgical clips in the right upper quadrant are likely from ch olecystectomy. IMPRESSION: 1. No acute cardiopulmonary disease. Reviewed, dictated and finalized at location A.
--- NOTE | ~2020-03-18 | CT_ITS ---
EXAMINATION: CT abdomen pelvis wo con DATE: 03/18/2020 14:19 INDICATION: Right flank pain. TECHNIQUE: Computed tomography (CT) of the abdomen and pelvis was performed without intravenous contr ast. Automated exposure control and iterative reconstruction technique were employed. The dose-length product was 636.02 mGy-cm. COMPARISON: CT abdomen and pelvis 12/18/2019, 12/29/2011 FINDINGS: The visualized portions of the lung bases demonstrate elevation of right hemidiaphragm and mild atelectasis. No pleural effusion. The heart size is normal. There are coronary artery calcificat ions. No pericardial effusion. The liver and spleen are normal. There are changes of cholecystectomy. The pancreas and adrenal glands are normal. There is moderate atrophy of right kidney. There is a 1 mm stone in right kidney. There is a 3.7 cm cyst in left kidney. There are peripelvic cysts in left k idney. There is chronic wall thickening of the bladder, likely secondary to chronic outlet obstructio n from the moderately enlarged prostate. There is diverticulosis of the colon without evidence of div erticulitis. There are no dilated loops of bowel. The appendix is not visualized. There are no pathol ogically enlarged lymph nodes. There is no free intraperitoneal fluid. IMPRESSION: 1. 1 mm nonobstructing right kidney stone. Reviewed, dictated and finalized at location A.
--- NOTE | 2020-03-18 12:48 | ED.FEVER ---
HPI - Fever General Chief Complaint: Fever Stated Complaint: fever/hallucinations Time Seen by Provider: 03/18/20 12:26 Source: patient Mode of arrival: ambulatory Limitations: no limitations History of Present Illness HPI Narrative: This is an 80-year-old male that presents the emergency department for fever/chills x2 days. Also reports frequency and dysuria. Denies cough, shortness of breath, abdominal pain or vomiting. Related Data Home Medications Medication Instructions Recorded Confirmed lisinopril 10 0.5 tablet PO DAILY tablet 09/17/19 03/02/20 mg-hydrochlorothiazide 12.5 mg tablet polyethylene glycol 3350 17 17 gm PO HS 09/17/19 03/02/20 gram/dose oral powder acetaminophen [Tylenol Arthritis 650 mg PO Q12H PRN 02/17/20 03/02/20 Pain] Allergies Allergy/AdvReac Type Severity Reaction Status Date / Time Penicillins Allergy Mild Rash Verified 03/18/20 12:28 Review of Systems Review of Systems: Narrative: CONSTITUTIONAL: Reports fever, chills ENT: Denies rhinorrhea, congestion CARDIOVASCULAR: Denies chest pain RESPIRATORY: Denies cough or dyspnea. GASTROINTESTINAL: Denies abdominal pain, nausea, vomiting GENITOURINARY: Reports dysuria. Denies hematuria. All systems reviewed & are unremarkable except as noted in HPI and below PMFSH Social History Social History Smoking status: Never smoker Second hand tobacco smoke exposure: No Alcohol intake: current Drinks per week: 6 Substance use: never Substance use type: does not use Additional living arrangements comments: Elise Valladares Gender identity (if verbalized by the patient): Male Spiritual care concerns: No Agree to blood products: Yes Exam Narrative: Exam Narrative: GENERAL: Elderly, well-nourished, and in no acute distress. HEAD: Normocephalic, atraumatic. EYES: EOMI. CHEST: Clear to auscultation. No respiratory distress. No wheezes rales or rhonchi HEART: Regular rate and rhythm. No murmur heard. Normal peripheral pulses. ABDOMEN: Soft, nontender, nondistended, normal active bowel sounds. EXTREMITIES: Normal range of motion. No edema. SKIN: Warm, dry, no rash. NEURO: No focal deficits. Alert and oriented x3. PSYCH: Normal mood and affect Course Consultations Consultation #1: Spoke with hospitalist about patient and work-up who accepts admission Date: 03/18/20 Time: 15:19 Consultation #2: Spoke with urology who will consult Date: 03/18/20 Time: 15:19 Vital Signs Vital signs: Vital Signs Temperature 100.9 F H 03/18/20 12:21 Pulse Rate 111 H 03/18/20 12:21 Respiratory Rate 19 03/18/20 12:21 Blood Pressure 133/63 03/18/20 12:21 Pulse Oximetry 98 03/18/20 12:21 Temperature 100.9 F H 03/18/20 12:21 Pulse Rate 111 H 03/18/20 12:21 Respiratory Rate 19 03/18/20 12:21 Blood Pressure 133/63 03/18/20 12:21 Pulse Oximetry 98 03/18/20 12:21 MDM - Fever MDM Narrative Medical decision making narrative: Patient presents the emergency department for a fever and dysuria x2 days. Febrile upon arrival with temperature of 100.9. Patient also mildly tachycardic. CBC with mild leukocytosis to 12.4. Also with normocytic anemia with hemoglobin of 11.1. Metabolic panel without concerning changes. Lactic acid is not elevated. CRP is elevated to 26.1. UA with evidence of probable urinary tract infection. This will go for culture. CT scan of the abdomen and pelvis shows a 1 mm nonobstructing right kidney stone. Patient recently underwent bladder tumor removal with pathology revealing urothelial carcinoma. Patient will be admitted for further treatment of sepsis due to UTI. Patient given IV fluids and antibiotics in the ED. Spoke to hospitalist who accepts admission. Spoke to urologist who will consult Lab Data Attestation: I reviewed the patient's lab results. Result diagrams: 03/18/20 12:52 03/18/20 12:52
[2020-03-18 13:06] LABS: Basophils Absolute Auto 0.1 K/mm3 (0.0-0.1); Basophils Percent Auto 0.6 % (0.2-1.2); Eosinophils Absolute Auto 0.1 K/mm3 (0-0.3); Eosinophils Percent Auto 0.6 % (0-4.4); Hematocrit 33.1 % (42.0-52.0); Hemoglobin 11.1 g/dL (14.0-18.0); Immature Granulocyte Absolute 0.06 K/mm3 (0.00-0.031); Immature Granulocyte Percent A 0.5 % (0-0.5); Lymphocytes Absolute Auto 0.94 K/mm3 (0.9-3.2); Lymphocytes Percent Auto 7.6 % (18.3-44.2); Mean Corpuscular HGB Conc 33.5 g/dl (32-36); Mean Corpuscular Hemoglobin 29.9 pg (26-34); Mean Corpuscular Volume 89.2 fl (80-100); Mean Platelet Volume 9.5 fl (7.4-10.4); Monocytes Absolute Auto 0.9 K/mm3 (0.1-0.6); Monocytes Percent Auto 7.2 % (2.6-8.5); Neutrophils Absolute Auto 10.4 K/mm3 (1.3-6.7); Neutrophils Percent Auto 83.5 % (45.5-73.1); Platelet Count Result 370 k/mm3 (150-375); Red Blood Count 3.71 M/mm3 (4.6-6.20); White Blood Count 12.4 K/mm3 (4.5-10.0)
[2020-03-18 13:11] LABS: Add Urine Microscopic? YES; Appearance Urine Cloudy (Clear); Bilirubin Urine Negative (Negative); Blood Urine 2+ (Negative); Color Urine Yellow (Yellow); Glucose Urine UA Negative (Negative); Ketones Urine 1+ mg/dL (Negative); Leukocyte Esterase Ur 3+ LEU/UL (Negative); Mucus Urine Rare /lpf; Nitrate Urine Negative (Negative); Protein Urine 2+ mg/dL (Negative); RBC Urine >75 /hpf (0-2); Specific Grav Ur 1.017 (1.001-1.035); Squamous Epithelial Cell Urine Few /hpf (Few); Urobilinogen Urine Negative mg/dL (<2.0); WBC Urine >75 /hpf
[2020-03-18 13:28] LABS: Lactic Acid Reflex 1.5 mmol/L (0.7-2.1)
[2020-03-18 13:32] LABS: Alanine Aminotransferase 13 U/L (4-50); Alkaline Phosphatase 88 U/L (38-126); Aspartate Amino Transferase 33 U/L (17-59); Bilirubin,Total 0.6 mg/dL (0.2-1.3); Blood Urea Nitrogen 22 mg/dL (9-20); Carbon Dioxide 24 mmol/L (22-30); Chloride 99 mmol/L (98-107); Estimated CRCL calculation 53 ml/min; Estimated Glomerular Filt Rate > 60; Glucose 198 mg/dL (75-110); Potassium 4.3 mmol/L (3.4-5.0); Sodium 134 mmol/L (137-145)
[2020-03-18 13:51] LABS: CRP 26.1 mg/dL (<1.0)
[2020-03-18] MEDS: SODIUM CHLORIDE 0.9% IV 500 ML 999 ML IV CONT (13:52)
[2020-03-18] MEDS: SODIUM CHLORIDE 0.9% IV 1,000 ML 999 ML IV CONT (13:52)
--- NOTE | 2020-03-18 16:29 | WPDURCON ---
Assessment and Plan Assessment and plan (1) Urinary tract infection: Qualifiers: Hematuria presence: without hematuria Urinary tract infection type: acute cystitis Qualified Code(s): N30.00 - Acute cystitis without hematuria Code(s): N39.0 - Urinary tract infection, site not specified Status: Acute (2) Sepsis: Qualifiers: Sepsis acute organ dysfunction status: without acute organ dysfunction Sepsis type: sepsis due to unspecified organism Qualified Code(s): A41.9 - Sepsis, unspecified organism Code(s): A41.9 - Sepsis, unspecified organism Status: Acute Assessment and Plan: Plan to continue IV antibiotics, tailor to culture results. Will continue to follow patient. Unfortunately, he has likely developed a post op infection from recent TURBT. (3) Urothelial cancer: Code(s): C68.9 - Malignant neoplasm of urinary organ, unspecified Status: Acute Urology Consult Note HPI Date Seen: 03/18/20 Requesting Physician: Asael Clancy MD Primary Care Provider: Nitin Aldana MD Consult Narrative Narrative: Brian Valladares Sr. is a 80 year old male who presents to the ER with dysuria, hallucinations,diaphoresis, chills and fever of >101, frequency and flank pain that has persisted for four days. He is s/p TURBT on 03/05/[address] Redman and is scheduled to follow up with us in the office on Monday. He had a CT done while in the ER that is unremarkable but notes a 1mm right renal stone that is non obstructive. His blood and urine cultures are pending but UA is suspicious of a UTI. WBC is 12.4 and Creatinine is 1.10. Review of Systems Cardiovascular: Cardiovascular: Denies chest pain Respiratory: Respiratory: Reports no additional respiratory complaints Gastrointestinal: Gastrointestinal: Denies abdominal pain, Denies nausea and Denies vomiting Genitourinary: Genitourinary: Denies hematuria, Reports dysuria, Reports flank pain and Reports urinary frequency PMFSH Past Medical History Medical History Cholecystitis Diabetes Essential hypertension Hyperlipidemia KEMI (iron deficiency anemia) Preoperative clearance Type 2 diabetes mellitus without complication, without long-term current use of insulin 12/16/19 A1C was 5.8 Surgical History Surgical History History of appendectomy (~1969) History of cholecystectomy (~2008) History of total knee replacement Left - Sep 2019 Family History Family History Mother Family history of liver disease Heart disease Cirrhosis Father Family history of liver disease Cirrhosis Grandparent Cerebrovascular accident Other Diabetes mellitus Social History Social History Smoking status: Never smoker Second hand tobacco smoke exposure: No Alcohol intake: current Drinks per week: 6 Substance use: never Substance use type: does not use Additional living arrangements comments: Elise Valladares Gender identity (if verbalized by the patient): Male Spiritual care concerns: No Agree to blood products: Yes Meds Home Medications and Allergies Home Medications Medication Instructions Recorded Confirmed Type lisinopril 10 0.5 tablet PO DAILY tablet 09/17/19 03/02/20 History mg-hydrochlorothiazide 12.5 mg tablet polyethylene glycol 3350 17 17 gm PO HS 09/17/19 03/02/20 History gram/dose oral powder metformin 1,000 mg tablet 1,000 mg PO BID #180 tablet 10/22/19 03/02/20 Rx tamsulosin 0.4 mg capsule 0.4 mg PO DAILY #90 cap 01/20/20 03/02/20 Rx acetaminophen [Tylenol Arthritis 650 mg PO Q12H PRN 02/17/20 03/02/20 History Pain] Allergies Allergy/AdvReac Type Severity Reaction Status Date / Time Penicillins Allergy Mild Rash Verified 03/18
--- NOTE | 2020-03-18 16:35 | ADMGEN ---
This patient, Brian Valladares , was admitted to [facility] Surg Room 330-01. Patient/family oriented to hospital policies and general routines including ID bracelet, bed and alarms, visiting hours, pain management, procedures, bathroom and other care routines, personal items, smoking policy, room service/diet, and visiting hours. Valuables list has been completed. Information on how to activate the Rapid Response Team has been discussed. Patient/Family are encouraged to report perceived risks to care and to ask questions if they do not understand what they are told or what they should do.
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
[2020-03-18 22:15] LABS: Glucose Point of Care 144 (65-105)
[2020-03-18 22:55] LABS: SARS-CoV-2 RNA PCR Negative
[2020-03-19] VITALS (14 sets, daily range): BP systolic 100–129; BP diastolic 52–59; PULSE 60–89; RESP 16–20; TEMP 36.1–38; O2SAT 95–99
[2020-03-19 06:55] LABS: Basophils Percent Auto 0.6 % (0.2-1.2); Eosinophils Absolute Auto 0.2 K/mm3 (0-0.3); Eosinophils Percent Auto 2.8 % (0-4.4); Hematocrit 28.2 % (42.0-52.0); Hemoglobin 9.3 g/dL (14.0-18.0); Immature Granulocyte Absolute 0.03 K/mm3 (0.00-0.031); Immature Granulocyte Percent A 0.5 % (0-0.5); Lymphocytes Absolute Auto 0.77 K/mm3 (0.9-3.2); Lymphocytes Percent Auto 11.9 % (18.3-44.2); Mean Corpuscular Hemoglobin 29.4 pg (26-34); Mean Corpuscular Volume 89.2 fl (80-100); Mean Platelet Volume 9.1 fl (7.4-10.4); Monocytes Absolute Auto 0.7 K/mm3 (0.1-0.6); Monocytes Percent Auto 11.4 % (2.6-8.5); Neutrophils Absolute Auto 4.7 K/mm3 (1.3-6.7); Neutrophils Percent Auto 72.8 % (45.5-73.1); Platelet Count Result 281 k/mm3 (150-375); Red Blood Count 3.16 M/mm3 (4.6-6.20); Red Cell Distribution Width 12.9 % (11.5-14.5); White Blood Count 6.5 K/mm3 (4.5-10.0)
[2020-03-19 07:50] LABS: Alanine Aminotransferase 13 U/L (4-50); Alkaline Phosphatase 71 U/L (38-126); Aspartate Amino Transferase 39 U/L (17-59); Bilirubin,Total 0.2 mg/dL (0.2-1.3); Blood Urea Nitrogen 17 mg/dL (9-20); CRP 21.8 mg/dL (<1.0); Calcium 8.1 mg/dL (8.4-10.2); Carbon Dioxide 25 mmol/L (22-30); Chloride 102 mmol/L (98-107); Estimated CRCL calculation 59 ml/min; Estimated Glomerular Filt Rate > 60; Glucose 113 mg/dL (75-110); Magnesium 1.2 mg/dL (1.6-2.3); Potassium 3.8 mmol/L (3.4-5.0); Sodium 133 mmol/L (137-145)
[2020-03-19 09:16] LABS: Glucose Point of Care 118 (65-105)
[2020-03-19] MEDS: TAMSULOSIN HCL 0.4 MG CAPSULE PO (09:32)
[2020-03-19] MEDS: lisinopriL 5 MG TABLET PO (09:32)
[2020-03-19] MEDS: hydroCHLOROthiazide 6.25 MG TABLET PO (09:32)
--- NOTE | 2020-03-19 10:07 | WPDUROPN2 ---
Progress Note: A&P Assessment and Plan (1) Urothelial cancer: Code(s): C68.9 - Malignant neoplasm of urinary organ, unspecified Status: Acute (2) Urinary tract infection: Qualifiers: Hematuria presence: without hematuria Urinary tract infection type: acute cystitis Qualified Code(s): N30.00 - Acute cystitis without hematuria Code(s): N39.0 - Urinary tract infection, site not specified Status: Acute Assessment and Plan: Feeling better. Remains on ceftriaxone pending completion of blood in urine cultures Patient is scheduled for re-resection of muscle invasive bladder cancer on April 16. Subjective Subjective Date/Time Seen: 03/19/20 10:07 Fever / probable UTI. Feeling better - no complaints. Review of Systems Cardiovascular: Cardiovascular: Denies chest pain, Denies lightheadedness, Denies palpitations and Denies dyspnea Respiratory: Respiratory: Denies dyspnea Gastrointestinal: Gastrointestinal: Denies diarrhea, Denies nausea and Denies vomiting Genitourinary: Genitourinary: Denies hematuria and Denies dysuria Endocrine: Endocrine: Denies palpitations Exam Const: General: no acute distress Resp: Effort & Inspection: normal respiratory effort GI: Inspection: non-distended GI Palp: No abdominal tenderness and No Guarding due to palpation present (GI) Auscultation: normal bowel sounds Objective Data Vital Signs Vital Signs: Vital Signs - 24 hr 03/18/20 12:21 03/18/20 13:30 03/18/20 14:30 Temperature 100.9 F H Pulse Rate 111 H 106 H 92 Respiratory Rate 19 20 16 Blood Pressure 133/63 115/64 107/51 L Pulse Oximetry 98 96 95 03/18/20 15:55 03/18/20 17:12 03/18/20 18:00 Temperature 98.2 F 97.8 F 98.6 F Pulse Rate 76 81 98 Respiratory Rate 16 18 16 Blood Pressure 105/50 L 119/59 L 125/86 Pulse Oximetry 98 98 95 03/18/20 20:00 03/18/20 21:54 03/18/20 22:00 Temperature 101.7 F H 101.7 F H Pulse Rate 87 84 Respiratory Rate 16 Blood Pressure 120/57 L Pulse Oximetry 97 03/18/20 22:24 03/19/20 00:00 03/19/20 02:00 Temperature 98.3 F 98.1 F Pulse Rate 70 61 Respiratory Rate 16 Blood Pressure 102/55 L Pulse Oximetry 97 03/19/20 04:00 03/19/20 06:00 03/19/20 06:15 Temperature 99.7 F H 99.7 F H Pulse Rate 81 75 Respiratory Rate 16 Blood Pressure 122/53 L Pulse Oximetry 96 03/19/20 06:45 Temperature 98.5 F Pulse Rate Respiratory Rate Blood Pressure Pulse Oximetry Intake/Output Intake/Output: Intake & Output 03/16/20 03/17/20 03/18/20 03/19/20 23:59 23:59 23:59 23:59 Intake Total 2190 600 Output Total 0 950 Balance 2190 -350 Meds/Results Medications: Active Medications Generic Name Dose Route Start Last Admin Trade Name Freq PRN Reason Stop Dose Admin Dextrose 12.5 gm 03/18/20 21:13 Dextrose 50% Syringe IV PUSH PRN PRN Hypoglycemia Protocol Glucagon 1 mg 03/18/20 21:13 Glucagon For Inj IM PRN PRN Hypoglycemia Protocol Glucose 15 gm 03/18/20 21:13 Glutose 15 PO PRN PRN Hypoglycemia Protocol Hydrochlorothiazide 6.25 mg 03/19/20 09:00 03/19/20 09:32 Hydrochlorothiazide PO 6.25 mg QAM POP Administration Acetaminophen 1,000 mg in 100 mls @ 400 mls/hr 03/18/20 15:10 03/19/20 06:30 Ofirmev 1,000 Mg Ivpb IVPB 03/19/20 15:11 Infused Q6H PRN Infusion Mild Pain (1-3) or Fever Ceftriaxone Sodium/Dextrose 1 gm in 50 mls @ 100 mls/hr 03/19/20 14:00 Rocephin 1 Gm/D5w 50 Ml IVPB Q24H POP Dextrose 1,000 mls @ 100 mls/hr 03/18/20 21:13 Dextrose 5% 1,000 Ml IVPB PRN PRN Hypoglycemia Protocol Insulin Aspart 2 - 5 units 03/19/20 08:00 03/19/20 09:31 Novolog SUB-Q Not Given TIDWM POP Protocol Lisinopril 5 mg 03/19/20 09:00 03/19/20 09:32 Prinivil PO 5 mg QAM POP Administration Polyethylene Glycol 17 gm 03/18/20 21:17 Miralax PO
--- NOTE | 2020-03-19 10:56 | PM.IMPN ---
Progress Note: A&P Assessment and Plan (1) Sepsis: Qualifiers: Sepsis acute organ dysfunction status: without acute organ dysfunction Sepsis type: sepsis due to unspecified organism Qualified Code(s): A41.9 - Sepsis, unspecified organism Code(s): A41.9 - Sepsis, unspecified organism Status: Acute Assessment and Plan: Present on admission with fever, tachycardia, leukocytosis and elevated CRP with associated mental status changes manifest as hallucinations. Symptoms are improving. White count normal. Related to UTI. Will check chest x-ray for cough. Cultures are pending. COVID was negative. (2) Urinary tract infection: Qualifiers: Hematuria presence: without hematuria Urinary tract infection type: acute cystitis Qualified Code(s): N30.00 - Acute cystitis without hematuria Code(s): N39.0 - Urinary tract infection, site not specified Status: Acute Assessment and Plan: UA noted. Urine and blood cultures pending. The patient was started on Rocephin. Urology consulted and appreciate their input. White count normal now. Continue Rocephin. Follow up on culture results. (3) Diabetes: Code(s): E11.9 - Type 2 diabetes mellitus without complications Status: Chronic Assessment and Plan: A1c 6.0 in September. Glucose reviewed on 03/19/2020. Glucose well controlled. Continue to hold metformin. Continue close glucose monitoring with Accu-Cheks AC and HS and cover with sliding scale. Hypoglycemia protocol available as needed. (4) Urothelial cancer: Code(s): C68.9 - Malignant neoplasm of urinary organ, unspecified Status: Acute Assessment and Plan: Patient is s/p TURBT on 03/05 with pathology revealing urothelial carcinoma. Urology consulted and appreciate their input. Continue Flomax. (5) Anemia: Code(s): D64.9 - Anemia, unspecified Status: Acute Assessment and Plan: Hemoglobin was 12.9 in September and in January. Here, hemoglobin was 11.1 but has dropped to 9.3 probably related to IV fluids. No evidence of acute blood loss. In January, iron 53 and TIBC 290 with 18% saturation. B12 level low at 198. Add iron and B12. (6) Essential hypertension: Code(s): I10 - Essential (primary) hypertension Status: Chronic Assessment and Plan: Blood pressure reviewed on 03/19/2020. Blood pressure well controlled. Continue home lisinopril and hydrochlorothiazide. Subjective Date/time seen: 03/19/20 10:56 Interval history: 80yo male here for fever and hallucinations felt related to UTI. He is s/p TURBT on 03/05 with pathology revealing urothelial carcinoma. He did require Son placement for difficulty voiding on 03/09/20 that was removed a few days later. Date of service 03/19/20: Patient was having fever and chills at home these symptoms has resolved. No longer having hallucinations. Does have a nonproductive cough. No chest pain or shortness of breath. Eating normally. Voiding normally. No back pain. Exam Narrative: Exam Narrative: Tm 101.7 97.0 100/52 79 16 96% ra Gen -well-nourished, well-developed male in no acute respiratory distress sitting up in a chair. HEENT - NC/AT, mmm Chest -few right basilar inspiratory crackles otherwise clear. Normal respiratory rate CV - RRR S1/S2; telemetry showing PACs. Abd - Soft, NT/ND, Positive BS Back -no CVA tenderness Ext - No pedal edema Neuro - Alert and oriented. Nonfocal exam. Psych - Nml mood and affect Skin - Warm and dry Objective Data Vital Signs Vital Signs: Vital Signs - 24 hr 03/18/20 12:21 03/18/20 13:30 03/18/20 14:30 Temperature 100.9 F H Pulse Rate 111 H 106 H 92 Respiratory Rate 19 20 16 Blood Pressure 133/63 115/64 107/51 L Pulse Oximetry 98 96 95 03/18/20 15:55 03/18/20 17:12 03/18/20 18:00 Temperature 98.2 F 97.8 F 98.6 F Pulse Rate 76 81 98 Respiratory Rate 16 18 16 Blood Pressure 105/50 L 119/
[2020-03-19] MEDS: MAGNESIUM SULF 2 GM/WATER 50ML 2 GM/50 ML BAG IVPB (13:13)
[2020-03-19] MEDS: CYANOCOBALAMIN INJ 1,000 MCG/ML VIAL 1000 MCG IM (13:13)
[2020-03-19] MEDS: ACETAMINOPHEN 325 MG TABLET 650 MG PO (18:47)
[2020-03-19 20:15] LABS: Glucose Point of Care 117 (65-105)
[2020-03-19 20:15] LABS: Glucose Point of Care 140 (65-105)
[2020-03-19 22:20] LABS: Glucose Point of Care 153 (65-105)
[2020-03-20 06:00] VITALS: BP 123/60; PULSE 74; RESP 20; TEMP 37.2; O2SAT 98
[2020-03-20 06:27] LABS: Hematocrit 28.7 % (42.0-52.0); Hemoglobin 9.5 g/dL (14.0-18.0); Mean Corpuscular HGB Conc 33.1 g/dl (32-36); Mean Corpuscular Hemoglobin 29.4 pg (26-34); Mean Corpuscular Volume 88.9 fl (80-100); Mean Platelet Volume 9.2 fl (7.4-10.4); Platelet Count Result 335 k/mm3 (150-375); Red Blood Count 3.23 M/mm3 (4.6-6.20); Red Cell Distribution Width 12.9 % (11.5-14.5); White Blood Count 6.3 K/mm3 (4.5-10.0)
[2020-03-20 06:39] LABS: Albumin Level 3.1 g/dL (3.5-5.1); Blood Urea Nitrogen 15 mg/dL (9-20); Calcium 8.2 mg/dL (8.4-10.2); Carbon Dioxide 26 mmol/L (22-30); Chloride 102 mmol/L (98-107); Estimated CRCL calculation 65 ml/min; Estimated Glomerular Filt Rate > 60; Glucose 127 mg/dL (75-110); Phosphorus 3.2 mg/dL (2.5-4.5); Potassium 3.9 mmol/L (3.4-5.0); Sodium 132 mmol/L (137-145)
--- NOTE | 2020-03-20 07:09 | WPDUROPN2 ---
Progress Note: A&P Assessment and Plan (1) Urinary tract infection: Qualifiers: Hematuria presence: without hematuria Urinary tract infection type: acute cystitis Qualified Code(s): N30.00 - Acute cystitis without hematuria Code(s): N39.0 - Urinary tract infection, site not specified Status: Acute Assessment and Plan: Pseudomonas in urine / await sensitivities. Blood culture neg. so far. Subjective Subjective Date/Time Seen: 03/20/20 07:09 Still feeling a little puny/fatigued. Low grade fever persists. Review of Systems Cardiovascular: Cardiovascular: Denies chest pain, Denies lightheadedness, Denies palpitations and Denies dyspnea Respiratory: Respiratory: Denies dyspnea Gastrointestinal: Gastrointestinal: Denies diarrhea, Denies nausea and Denies vomiting Genitourinary: Genitourinary: Denies hematuria and Denies dysuria Endocrine: Endocrine: Denies palpitations Exam Const: General: no acute distress Resp: Effort & Inspection: normal respiratory effort GI: Inspection: non-distended GI Palp: No abdominal tenderness and No Guarding due to palpation present (GI) Auscultation: normal bowel sounds Objective Data Vital Signs Vital Signs: Vital Signs - 24 hr 03/19/20 08:00 03/19/20 10:00 03/19/20 12:00 Temperature 97.0 F L Pulse Rate 60 79 77 Respiratory Rate 16 Blood Pressure 100/52 L Pulse Oximetry 96 03/19/20 14:00 03/19/20 18:00 03/19/20 18:47 Temperature 97.8 F 100.4 F H 100.4 F H Pulse Rate 80 89 Respiratory Rate 16 16 Blood Pressure 100/58 L 129/59 L Pulse Oximetry 99 95 03/19/20 19:47 03/19/20 22:00 03/20/20 06:00 Temperature 98.4 F 98.3 F 99.0 F Pulse Rate 71 74 Respiratory Rate 20 20 Blood Pressure 110/53 L 123/60 Pulse Oximetry 98 98 Intake/Output Intake/Output: Intake & Output 03/17/20 03/18/20 03/19/20 03/20/20 23:59 23:59 23:59 23:59 Intake Total 2190 1600 400 Output Total 0 1325 725 Balance 2190 275 -325 Meds/Results Medications: Active Medications Generic Name Dose Route Start Last Admin Trade Name Freq PRN Reason Stop Dose Admin Acetaminophen 650 mg 03/19/20 18:35 03/19/20 18:47 Tylenol Tablet PO 650 mg Q4H PRN Administration Mild Pain (1-3) or Fever Cyanocobalamin 1,000 mcg 03/20/20 09:00 Vitamin B-12 Tab PO QAM POP Dextrose 12.5 gm 03/18/20 21:13 Dextrose 50% Syringe IV PUSH PRN PRN Hypoglycemia Protocol Docosanol 1 applic 03/19/20 18:29 Abreva TOPICAL 5 TIMES DAILY PRN Cold Sores Ferrous Sulfate 324 mg 03/19/20 17:00 Ferrous Sulfate PO BIDWM POP Glucagon 1 mg 03/18/20 21:13 Glucagon For Inj IM PRN PRN Hypoglycemia Protocol Glucose 15 gm 03/18/20 21:13 Glutose 15 PO PRN PRN Hypoglycemia Protocol Hydrochlorothiazide 6.25 mg 03/19/20 09:00 03/19/20 09:32 Hydrochlorothiazide PO 6.25 mg QAM POP Administration Ceftriaxone Sodium/Dextrose 1 gm in 50 mls @ 100 mls/hr 03/19/20 14:00 03/19/20 13:45 Rocephin 1 Gm/D5w 50 Ml IVPB Infused Q24H POP Infusion Dextrose 1,000 mls @ 100 mls/hr 03/18/20 21:13 Dextrose 5% 1,000 Ml IVPB PRN PRN Hypoglycemia Protocol Insulin Aspart 2 - 5 units 03/19/20 08:00 03/19/20 18:48 Novolog SUB-Q Not Given TIDWM POP Protocol Lisinopril 5 mg 03/19/20 09:00 03/19/20 09:32 Prinivil PO 5 mg QAM POP Administration Polyethylene Glycol 17 gm 03/18/20 21:17 Miralax PO PRN PRN Constipation Tamsulosin HCl 0.4 mg 03/19/20 09:00 03/19/20 09:32 Flomax PO 0.4 mg DAILY POP Administration Radiology Results: ITS Impressions Abdomen/Pelvis CT 03/18/20 14:21 IMPRESSION: 1. 1 mm nonobstructing right kidney stone. Chest X-Ray 03/19/20 15:08 IMPRESSION: 1. No acute cardiopulmonary disease. Labs Labs: Laboratory Results - last 24 hr
[2020-03-20] MEDS: hydroCHLOROthiazide 6.25 MG TABLET PO (09:03)
[2020-03-20] MEDS: lisinopriL 5 MG TABLET PO (09:04)
[2020-03-20] MEDS: TAMSULOSIN HCL 0.4 MG CAPSULE PO (09:04)
[2020-03-20] MEDS: CYANOCOBALAMIN 1,000 MCG TABLET 1000 MCG PO (09:04)
[2020-03-20] MEDS: FERROUS SULFATE 324 MG TABLET PO ×2 (09:04→18:15)
--- NOTE | 2020-03-20 12:40 | PM.IMPN ---
Progress Note: A&P Assessment and Plan (1) Sepsis: Qualifiers: Sepsis acute organ dysfunction status: without acute organ dysfunction Sepsis type: sepsis due to unspecified organism Qualified Code(s): A41.9 - Sepsis, unspecified organism Code(s): A41.9 - Sepsis, unspecified organism Status: Acute Assessment and Plan: Present on admission with fever, tachycardia, leukocytosis and elevated CRP with associated mental status changes manifest as hallucinations. COVID was negative. Related to the UTI. Symptoms are resolving. Still with low grade fever but should resolve with change in abx. White count remaining normal. (2) Urinary tract infection: Qualifiers: Hematuria presence: without hematuria Urinary tract infection type: acute cystitis Qualified Code(s): N30.00 - Acute cystitis without hematuria Code(s): N39.0 - Urinary tract infection, site not specified Status: Acute Assessment and Plan: UA noted. Urine culture growing Pseudomonas sensitive to Cefepime. Blood cultures NGTD. The patient was started on Rocephin but changed to Cefepime (Day 1) this morning. Urology consulted and appreciate their input. White count remaining normal now. Midline for home IV abx. (3) Diabetes: Code(s): E11.9 - Type 2 diabetes mellitus without complications Status: Chronic Assessment and Plan: A1c 6.0 in September. Glucose reviewed on 03/20/2020. Glucose well controlled. Continue to hold metformin. Continue close glucose monitoring with Accu-Cheks AC and HS and cover with sliding scale. Hypoglycemia protocol available as needed. (4) Urothelial cancer: Code(s): C68.9 - Malignant neoplasm of urinary organ, unspecified Status: Acute Assessment and Plan: Patient is s/p TURBT on 03/05 with pathology revealing urothelial carcinoma. Urology consulted and appreciate their input. Continue Flomax. (5) Anemia: Code(s): D64.9 - Anemia, unspecified Status: Acute Assessment and Plan: Hemoglobin was 12.9 in September and in January. Here, hemoglobin was 11.1 but has dropped to 9.3 probably related to IV fluids. No evidence of acute blood loss. In January, iron 53 and TIBC 290 with 18% saturation. B12 level low at 198. Continue iron and B12. Repeat Hgb 9.5 today. (6) Essential hypertension: Code(s): I10 - Essential (primary) hypertension Status: Chronic Assessment and Plan: Blood pressure reviewed on 03/20/2020. Blood pressure well controlled. Continue home lisinopril and hydrochlorothiazide. Subjective Date/time seen: 03/20/20 12:40 Interval history: 80yo male here for fever and hallucinations felt related to UTI. He is s/p TURBT on 03/05 with pathology revealing urothelial carcinoma. He did require Son placement for difficulty voiding on 03/09/20 that was removed a few days later. Date of service 03/20/20: Patient still having fevers. Slept well last night. Eating normally. Up walking in the room. Requesting discharge Exam Narrative: Exam Narrative: Tm 100.4 99.0 123/60 74 20 98% ra Gen -NARD Chest -few bibasilar rhonchi otherwise clear. Normal respiratory rate CV - RRR S1/S2 Abd - Soft, NT/ND, Positive BS Ext - No pedal edema Psych - Nml mood and affect Skin - Warm and dry Objective Data Vital Signs Vital Signs: Vital Signs - 24 hr 03/19/20 14:00 03/19/20 18:00 03/19/20 18:47 Temperature 97.8 F 100.4 F H 100.4 F H Pulse Rate 80 89 Respiratory Rate 16 16 Blood Pressure 100/58 L 129/59 L Pulse Oximetry 99 95 03/19/20 19:47 03/19/20 22:00 03/20/20 06:00 Temperature 98.4 F 98.3 F 99.0 F Pulse Rate 71 74 Respiratory Rate 20 20 Blood Pressure 110/53 L 123/60 Pulse Oximetry 98 98 Intake/Output Intake/Output: Intake & Output 03/17/20 03/18/20 03/19/20 03/20/20 23:59 23:59 23:59 23:59 Intake Total 2190 1600 520 Output Total 0 1325 725 Balance
[2020-03-20 12:46] LABS: Glucose Point of Care 126 (65-105)
[2020-03-20 13:23] LABS: Glucose Point of Care 121 (65-105)
[2020-03-20 14:00] VITALS: BP 110/62; PULSE 95; RESP 18; TEMP 37.1; O2SAT 99
[2020-03-20] MEDS: LIDOCAINE HCL 1% LOCAL INJ 2 ML AMPUL 5 ML INFILTRATE (14:20)
[2020-03-20] MEDS: DOCOSANOL 10% CREAM 2 GM 1 APPLIC TOPICAL (18:14)
[2020-03-20 18:35] LABS: Glucose Point of Care 119 (65-105)
[2020-03-20] MEDS: SALINE LOCK FLUSH 10 ML IV PUSH (20:56)
[2020-03-20 22:00] VITALS: BP 108/59; PULSE 76; RESP 16; TEMP 37.2; O2SAT 95
[2020-03-20 23:30] LABS: Glucose Point of Care 150 (65-105)
[2020-03-21 06:00] VITALS: BP 113/59; PULSE 72; RESP 20; TEMP 37; O2SAT 95
[2020-03-21] MEDS: SALINE LOCK FLUSH 10 ML IV PUSH ×3 (06:39→20:37)
[2020-03-21 07:39] LABS: Glucose Point of Care 130 (65-105)
[2020-03-21] MEDS: FERROUS SULFATE 324 MG TABLET PO ×2 (09:22→17:06)
[2020-03-21] MEDS: TAMSULOSIN HCL 0.4 MG CAPSULE PO (09:22)
[2020-03-21] MEDS: lisinopriL 5 MG TABLET PO (09:22)
[2020-03-21] MEDS: CYANOCOBALAMIN 1,000 MCG TABLET 1000 MCG PO (09:22)
[2020-03-21] MEDS: hydroCHLOROthiazide 6.25 MG TABLET PO (09:22)
[2020-03-21] MEDS: polyethylene glycoL 3350 17 GM POWD.PACK PO (09:23)
[2020-03-21 12:15] LABS: Glucose Point of Care 125 (65-105)
[2020-03-21 14:00] VITALS: BP 108/54; PULSE 101; RESP 20; TEMP 36.7; O2SAT 95
--- NOTE | 2020-03-21 16:42 | PM.IMPN ---
Progress Note: A&P Assessment and Plan (1) Urinary tract infection: Qualifiers: Hematuria presence: without hematuria Urinary tract infection type: acute cystitis Qualified Code(s): N30.00 - Acute cystitis without hematuria Code(s): N39.0 - Urinary tract infection, site not specified Status: Acute Assessment and Plan: UA noted. Urine culture growing Pseudomonas sensitive to Cefepime. Blood cultures NGTD. The patient was started on Rocephin but changed to Cefepime (Day 2). Urology consulted and appreciate their input. White count remaining normal. Midline in place for home IV abx. Discharge planning in process. (2) Sepsis: Qualifiers: Sepsis acute organ dysfunction status: without acute organ dysfunction Sepsis type: sepsis due to unspecified organism Qualified Code(s): A41.9 - Sepsis, unspecified organism Code(s): A41.9 - Sepsis, unspecified organism Status: Acute Assessment and Plan: Present on admission with fever, tachycardia, leukocytosis and elevated CRP with associated mental status changes manifest as hallucinations. COVID was negative. Related to the UTI. Patient afebrile and symptoms are resolving. (3) Diabetes: Code(s): E11.9 - Type 2 diabetes mellitus without complications Status: Chronic Assessment and Plan: A1c 6.0 in September. Glucose reviewed on 03/21/2020. Glucose well controlled. Continue close glucose monitoring with Accu-Cheks AC and HS and cover with sliding scale. Hypoglycemia protocol available as needed. Resume metformin. (4) Urothelial cancer: Code(s): C68.9 - Malignant neoplasm of urinary organ, unspecified Status: Acute Assessment and Plan: Patient is s/p TURBT on 03/05 with pathology revealing urothelial carcinoma. Urology consulted and appreciate their input. Continue Flomax. (5) Anemia: Code(s): D64.9 - Anemia, unspecified Status: Acute Assessment and Plan: Hemoglobin was 12.9 in September and in January. Here, hemoglobin was 11.1 but has dropped to 9.3 probably related to IV fluids. No evidence of acute blood loss. In January, iron 53 and TIBC 290 with 18% saturation. B12 level low at 198. Continue iron and B12. Repeat Hgb 9.5. Monitor periodically (6) Essential hypertension: Code(s): I10 - Essential (primary) hypertension Status: Chronic Assessment and Plan: Blood pressure reviewed on 03/21/2020. Blood pressure well controlled. Continue home lisinopril and hydrochlorothiazide. Subjective Date/time seen: 03/21/20 16:42 Interval history: 80yo male here for fever and hallucinations felt related to UTI. He is s/p TURBT on 03/05 with pathology revealing urothelial carcinoma. He did require Son placement for difficulty voiding on 03/09/20 that was removed a few days later. Date of service 03/21/20: No CP or SOB. Eating okay. No n/v. Slept well. No dysuria or hematuria except slight brief pain and the start of micturition. Voiding well overall. Exam Narrative: Exam Narrative: AF 98.0 108/54 101 20 95% ra Gen -NARD Chest - CTA bilateral, nml RR CV - RRR S1/S2 Abd - Soft, NT/ND, Positive BS Ext - No pedal edema Psych - Nml mood and affect Skin - Warm and dry Objective Data Vital Signs Vital Signs: Vital Signs - 24 hr 03/20/20 22:00 03/21/20 06:00 03/21/20 14:00 Temperature 99 F 98.6 F 98.0 F Pulse Rate 76 72 101 H Respiratory Rate 16 20 20 Blood Pressure 108/59 L 113/59 L 108/54 L Pulse Oximetry 95 95 95 Intake/Output Intake/Output: Intake & Output 03/18/20 03/19/20 03/20/20 03/21/20 23:59 23:59 23:59 23:59 Intake Total 2190 1600 1480 880 Output Total 0 1325 1305 950 Balance 2190 275 175 -70 Meds/Results Medications: Active Medications Generic Name Dose Route Start Last Admin Trade Name Freq PRN Reason Stop Dose Admin Acetaminophen 650 mg 03/19/20 18:35 03/19/20 18:47 Tylenol Table
[2020-03-21] MEDS: metFORMIN HCL 500 MG TABLET 1000 MG PO (17:12)
[2020-03-21 17:35] LABS: Glucose Point of Care 110 (65-105)
[2020-03-21 20:20] LABS: Glucose Point of Care 104 (65-105)
[2020-03-21 22:00] VITALS: BP 133/60; PULSE 92; RESP 16; TEMP 37.2; O2SAT 99
[2020-03-22] MEDS: SALINE LOCK FLUSH 10 ML IV PUSH ×3 (05:55→23:34)
[2020-03-22 06:00] VITALS: BP 121/71; PULSE 95; RESP 16; TEMP 37.1; O2SAT 98
[2020-03-22 06:44] LABS: Hematocrit 31.8 % (42.0-52.0); Hemoglobin 10.5 g/dL (14.0-18.0); Mean Corpuscular Hemoglobin 29.2 pg (26-34); Mean Corpuscular Volume 88.6 fl (80-100); Mean Platelet Volume 9.1 fl (7.4-10.4); Platelet Count Result 419 k/mm3 (150-375); Red Blood Count 3.59 M/mm3 (4.6-6.20); Red Cell Distribution Width 12.6 % (11.5-14.5); White Blood Count 6.5 K/mm3 (4.5-10.0)
[2020-03-22 07:00] LABS: Blood Urea Nitrogen 16 mg/dL (9-20); Calcium 8.8 mg/dL (8.4-10.2); Carbon Dioxide 25 mmol/L (22-30); Chloride 101 mmol/L (98-107); Estimated CRCL calculation 65 ml/min; Estimated Glomerular Filt Rate > 60; Glucose 123 mg/dL (75-110); Potassium 4.3 mmol/L (3.4-5.0); Sodium 134 mmol/L (137-145)
[2020-03-22 08:26] LABS: Glucose Point of Care 120 (65-105)
[2020-03-22] MEDS: TAMSULOSIN HCL 0.4 MG CAPSULE PO (09:20)
[2020-03-22] MEDS: hydroCHLOROthiazide 6.25 MG TABLET PO (09:20)
[2020-03-22] MEDS: lisinopriL 5 MG TABLET PO (09:20)
[2020-03-22] MEDS: CYANOCOBALAMIN 1,000 MCG TABLET 1000 MCG PO (09:20)
[2020-03-22] MEDS: FERROUS SULFATE 324 MG TABLET PO ×2 (09:20→17:58)
[2020-03-22] MEDS: metFORMIN HCL 500 MG TABLET 1000 MG PO ×2 (09:20→17:58)
[2020-03-22] MEDS: polyethylene glycoL 3350 17 GM POWD.PACK PO (09:27)
--- NOTE | 2020-03-22 10:05 | WPDUROPN2 ---
Progress Note: A&P Assessment and Plan (1) Urothelial cancer: Code(s): C68.9 - Malignant neoplasm of urinary organ, unspecified Status: Acute Assessment and Plan: - followup with re-resection with Dr. Redman as scheduled (2) Urinary tract infection: Qualifiers: Hematuria presence: without hematuria Urinary tract infection type: acute cystitis Qualified Code(s): N30.00 - Acute cystitis without hematuria Code(s): N39.0 - Urinary tract infection, site not specified Status: Acute Assessment and Plan: - Pseudomonas sensitive to Cefepime. - continue Cefepime, plan for home IV abx. Subjective Subjective Date/Time Seen: 03/22/20 10:05 no overnight events Exam Const: General: no acute distress Eyes: General: appearance normal, both eyes and all related structures Resp: Effort & Inspection: normal respiratory effort GI: Other: soft, nontender Skin: General skin exam: normal color Extrem: General: normal to inspection Objective Data Vital Signs Vital Signs: Vital Signs - 24 hr 03/21/20 14:00 03/21/20 22:00 03/22/20 06:00 Temperature 36.7 C 37.2 C 37.1 C Pulse Rate 101 H 92 95 Respiratory Rate 20 16 16 Blood Pressure 108/54 L 133/60 121/71 Pulse Oximetry 95 99 98 Intake/Output Intake/Output: Intake & Output 03/19/20 03/20/20 03/21/20 03/22/20 23:59 23:59 23:59 23:59 Intake Total 1600 1480 1670 800 Output Total 1325 1305 2250 Balance 275 175 -580 800 Meds/Results Medications: Active Medications Generic Name Dose Route Start Last Admin Trade Name Freq PRN Reason Stop Dose Admin Acetaminophen 650 mg 03/19/20 18:35 03/19/20 18:47 Tylenol Tablet PO 650 mg Q4H PRN Administration Mild Pain (1-3) or Fever Cyanocobalamin 1,000 mcg 03/20/20 09:00 03/22/20 09:20 Vitamin B-12 Tab PO 1,000 mcg QAM POP Administration Dextrose 12.5 gm 03/18/20 21:13 Dextrose 50% Syringe IV PUSH PRN PRN Hypoglycemia Protocol Docosanol 1 applic 03/19/20 18:29 03/20/20 18:14 Abreva TOPICAL 1 applic 5 TIMES DAILY PRN Administration Cold Sores Ferrous Sulfate 324 mg 03/19/20 17:00 03/22/20 09:20 Ferrous Sulfate PO 324 mg BIDWM POP Administration Glucagon 1 mg 03/18/20 21:13 Glucagon For Inj IM PRN PRN Hypoglycemia Protocol Glucose 15 gm 03/18/20 21:13 Glutose 15 PO PRN PRN Hypoglycemia Protocol Hydrochlorothiazide 6.25 mg 03/19/20 09:00 03/22/20 09:20 Hydrochlorothiazide PO 6.25 mg QAM POP Administration Dextrose 1,000 mls @ 100 mls/hr 03/18/20 21:13 Dextrose 5% 1,000 Ml IVPB PRN PRN Hypoglycemia Protocol Cefepime HCl 1 gm in 50 mls @ 100 mls/hr 03/20/20 08:00 03/22/20 09:14 Maxipime 1 Gm/D5w 50 Ml IVPB 100 mls/hr Q8H POP Administration Insulin Aspart 2 - 5 units 03/19/20 08:00 03/21/20 17:06 Novolog SUB-Q Not Given TIDWM [facility] Protocol Lisinopril 5 mg 03/19/20 09:00 03/22/20 09:20 Prinivil PO 5 mg QAM POP Administration Metformin HCl 1,000 mg 03/21/20 17:00 03/22/20 09:20 Glucophage PO 1,000 mg BID POP Administration Polyethylene Glycol 17 gm 03/18/20 21:17 03/22/20 09:27 Miralax PO 17 gm PRN PRN Administration Constipation Sodium Chloride 10 ml 03/20/20 22:00 03/22/20 05:55 Saline Lock Flush IV PUSH 10 ml Q8HR POP Administration Sodium Chloride 10 ml 03/20/20 14:59 Saline Lock Flush IV PUSH PRN PRN Flush Sodium Chloride 20 ml 03/20/20 14:59 Saline Lock Flush IV PUSH PRN PRN after blood draws Tamsulosin HCl 0.4 mg 03/19/20 09:00 03/22/20 09:20 Flomax PO 0.4 mg DAILY POP Administration Radiology Results: ITS Impressions Abdomen/Pelvis CT 03/18/20 14:21 IMPRESSION: 1. 1 mm nonobstructing right kidney stone. Chest X-Ray 03/19/20 15:08 IMPRESSION: 1. No acute cardiopulmon
[2020-03-22 12:25] LABS: Glucose Point of Care 119 (65-105)
[2020-03-22 14:00] VITALS: BP 136/70; PULSE 97; RESP 16; TEMP 37.1; O2SAT 98
--- NOTE | 2020-03-22 15:46 | PM.IMPN ---
Progress Note: A&P Assessment and Plan (1) Urinary tract infection: Qualifiers: Hematuria presence: without hematuria Urinary tract infection type: acute cystitis Qualified Code(s): N30.00 - Acute cystitis without hematuria Code(s): N39.0 - Urinary tract infection, site not specified Status: Acute Assessment and Plan: UA noted. Urine culture growing Pseudomonas sensitive to Cefepime. Blood cultures NGTD. The patient was started on Rocephin but changed to Cefepime (Day 3). Urology consulted and appreciate their input. White count remaining normal. Midline in place for home IV abx. Discharge planning in process. (2) Sepsis: Qualifiers: Sepsis acute organ dysfunction status: without acute organ dysfunction Sepsis type: sepsis due to unspecified organism Qualified Code(s): A41.9 - Sepsis, unspecified organism Code(s): A41.9 - Sepsis, unspecified organism Status: Acute Assessment and Plan: Present on admission with fever, tachycardia, leukocytosis and elevated CRP with associated mental status changes manifest as hallucinations. COVID was negative. Related to the pseudomonas UTI. Patient afebrile and symptoms are resolving. (3) Diabetes: Code(s): E11.9 - Type 2 diabetes mellitus without complications Status: Chronic Assessment and Plan: A1c 6.0 in September. Glucose reviewed on 03/22/2020. Glucose well controlled. Continue close glucose monitoring with Accu-Cheks AC and HS and cover with sliding scale. Hypoglycemia protocol available as needed. Continue metformin. (4) Urothelial cancer: Code(s): C68.9 - Malignant neoplasm of urinary organ, unspecified Status: Acute Assessment and Plan: Patient is s/p TURBT on 03/05 with pathology revealing urothelial carcinoma. Urology consulted and appreciate their input. Continue Flomax. (5) Anemia: Code(s): D64.9 - Anemia, unspecified Status: Acute Assessment and Plan: Hemoglobin was 12.9 in September and in January. In January, iron 53 and TIBC 290 with 18% saturation. B12 level low at 198. Here, hemoglobin was 11.1 but has dropped to 9.3 probably related to IV fluids. No evidence of acute blood loss. Continue iron and B12. Repeat Hgb 10.5. Monitor periodically (6) Essential hypertension: Code(s): I10 - Essential (primary) hypertension Status: Chronic Assessment and Plan: Blood pressure reviewed on 03/22/2020. Blood pressure well controlled. Continue home lisinopril and hydrochlorothiazide. Subjective Date/time seen: 03/22/20 15:46 Interval history: 80yo male here for fever and hallucinations felt related to UTI. He is s/p TURBT on 03/05 with pathology revealing urothelial carcinoma. He did require Son placement for difficulty voiding on 03/09/20 that was removed a few days later. Date of service 03/22/20: No complaints. very mild burning when he voids but better. +BMs. Up to the chair. No SOB, cough, or CP., Voiding normally. Exam Narrative: Exam Narrative: AF 98.8 136/70 97 16 98% ra Gen -NARD Chest - CTA bilateral, nml RR CV - RRR S1/S2 Abd - Soft, NT/ND, Positive BS Ext - No pedal edema Psych - Nml mood and affect Skin - Warm and dry Objective Data Vital Signs Vital Signs: Vital Signs - 24 hr 03/21/20 22:00 03/22/20 06:00 03/22/20 14:00 Temperature 99 F 98.8 F 98.8 F Pulse Rate 92 95 97 Respiratory Rate 16 16 16 Blood Pressure 133/60 121/71 136/70 Pulse Oximetry 99 98 98 Intake/Output Intake/Output: Intake & Output 03/19/20 03/20/20 03/21/20 03/22/20 23:59 23:59 23:59 23:59 Intake Total 1600 1480 1670 1330 Output Total 1325 1305 2250 Balance 275 175 -580 1330 Meds/Results Medications: Active Medications Generic Name Dose Route Start Last Admin Trade Name Freq PRN Reason Stop Dose Admin Acetaminophen 650 mg 03/19/20 18:35 03/19/20 18:47 Tylenol Tablet PO 650 mg
[2020-03-22 18:12] LABS: Glucose Point of Care 122 (65-105)
[2020-03-22 22:00] VITALS: BP 100/52; PULSE 94; RESP 18; TEMP 36.5; O2SAT 96
[2020-03-23 05:51] LABS: Glucose Point of Care 126 (65-105)
[2020-03-23 06:00] VITALS: BP 114/61; PULSE 86; RESP 18; TEMP 36.4; O2SAT 98
[2020-03-23] MEDS: SALINE LOCK FLUSH 10 ML IV PUSH ×2 (06:31→13:39)
[2020-03-23 08:48] VITALS: BP 109/59
[2020-03-23] MEDS: hydroCHLOROthiazide 6.25 MG TABLET PO (08:54)
[2020-03-23] MEDS: FERROUS SULFATE 324 MG TABLET PO (08:54)
[2020-03-23] MEDS: metFORMIN HCL 500 MG TABLET 1000 MG PO (08:54)
[2020-03-23] MEDS: CYANOCOBALAMIN 1,000 MCG TABLET 1000 MCG PO (08:54)
[2020-03-23] MEDS: TAMSULOSIN HCL 0.4 MG CAPSULE PO (08:54)
[2020-03-23] MEDS: lisinopriL 5 MG TABLET PO (08:54)
[2020-03-23 09:20] LABS: Glucose Point of Care 113 (65-105)
--- NOTE | 2020-03-23 10:44 | PM.DS ---
DS: Admitting Diagnosis Admitting Diagnosis Admitting Diagnosis: Acute cystitis without hematuria DS: Discharge Diagnosis Discharge Diagnosis (1) Urinary tract infection: Qualifiers: Hematuria presence: without hematuria Urinary tract infection type: acute cystitis Qualified Code(s): N30.00 - Acute cystitis without hematuria Code(s): N39.0 - Urinary tract infection, site not specified Status: Acute Assessment and Plan: UA noted. Urine culture growing Pseudomonas sensitive to Cefepime. Blood cultures NGTD. The patient was started on Rocephin but changed to Cefepime. Urology consulted and appreciate their input. White count remaining normal. Midline in place for home IV abx. (2) Sepsis: Qualifiers: Sepsis acute organ dysfunction status: without acute organ dysfunction Sepsis type: sepsis due to unspecified organism Qualified Code(s): A41.9 - Sepsis, unspecified organism Code(s): A41.9 - Sepsis, unspecified organism Status: Acute Assessment and Plan: Present on admission with fever, tachycardia, leukocytosis and elevated CRP with associated mental status changes manifest as hallucinations. COVID was negative. Related to the pseudomonas UTI. Patient afebrile and symptoms are resolved. (3) Diabetes: Code(s): E11.9 - Type 2 diabetes mellitus without complications Status: Chronic Assessment and Plan: A1c 6.0 in September. Glucose monitored closely. Glucose remained well controlled. He was monitored with Accu-Cheks covering with sliding scale. Hypoglycemia protocol available as needed. We continued metformin. (4) Urothelial cancer: Code(s): C68.9 - Malignant neoplasm of urinary organ, unspecified Status: Acute Assessment and Plan: Patient is s/p TURBT on 03/05 with pathology revealing urothelial carcinoma. Urology consulted and appreciate their input. Continue Flomax. (5) Anemia: Code(s): D64.9 - Anemia, unspecified Status: Acute Assessment and Plan: Hemoglobin was 12.9 in January. In January, iron 53 and TIBC 290 with 18% saturation. B12 level low at 198. Here, hemoglobin was 11.1 but has dropped to 9.3 probably related to IV fluids. No evidence of acute blood loss. Repeat Hgb 10.5. We continued iron and B12. (6) Essential hypertension: Code(s): I10 - Essential (primary) hypertension Status: Chronic Assessment and Plan: Blood pressure monitored closely. Blood pressure remianed well controlled. We continued home lisinopril and hydrochlorothiazide. DS: Summary Hospital Course Reason for hospitalization: 80yo male here for hallucination and sepsis symptoms and found to have UTI. Please see H&P for details. Hospital Course: As above Time Spent with Patient Time attestation: Total time spent providing and/or coordinating discharge services:38 minutes Time spent: Greater than 30 minutes Specific discharge activities: Caring for the patient. Preparing the medical record Exam Narrative: Exam Narrative: No complaints. Slept well. No CP or SOB. AF 109/59 86 Gen -NARD Chest - mild right base crackles o/w clear CV - RRR S1/S2 Abd - Soft, NT/ND, Positive BS Ext - No pedal edema Psych - Nml mood and affect Skin - Warm and dry DS: Data Data Completed and Pending Labs on day of discharge: Labs from last 24 hours 03/23/20 03/22/20 03/22/20 08:46 21:12 18:10 POC Capillary Glucose 113 H 126 H 122 H 03/22/20 12:10 POC Capillary Glucose 119 H Preliminary micro results at discharge 03/18/20 12:52 Blood Culture - Preliminary Blood 03/18/20 12:52 Blood Culture - Preliminary Blood Discharge Plan Discharge Attending physician on discharge: Rodger Clancy Consulting providers: Andraed Canseco ; Caty Silva Discharging Clinician: Rodger Clancy Anticipated Discharge Date/Time: 03/23/20 10:52 Patient Di
== END 2020-03-23 14:05 | disposition home health service (06) | DRG 872 ==
LOC: ANHED 15:21 → ANH3MEDSUR 15:48
PROVIDERS: Nurse Practitioner; Physician Assistant; Admitting Provider Internal Medicine; Emergency Provider Family Medicine; PCP Family Medicine; Visit Provider Internal Medicine
DX: A41.9 Sepsis, unspecified organism (principal); N30.00 Acute cystitis without hematuria; C68.9 Malignant neoplasm of urinary organ, unspecified; R65.20 Severe sepsis without septic shock; E11.9 Type 2 diabetes mellitus without complications; E78.5 Hyperlipidemia, unspecified; I10 Essential (primary) hypertension; D50.9 Iron deficiency anemia, unspecified; Z20.828 Contact with and (suspected) exposure to other viral communicable diseases; B96.5 Pseudomonas (aeruginosa) (mallei) (pseudomallei) as the cause of diseases classified elsewhere
CPT/HCPCS: 36415; 36569; 71046; 74176; 80048; 80053; 80069; 81001; 83605; 83735; 84443; 85025; 85027; 86140; 87040; 87077; 87086; 87088; 87186; 87635; 96365; 96366; 96367; 96372; 96375; 96376; 99285; A9270; C9803; G0378; J0131; J0692; J0696; J3420; J3475; J7030; J7040; U0003

== ENCOUNTER 2020-04-14 01:07 | Outpatient (CLI) | payer MEDICARE, BC, SELFPAY ==
[2020-04-14 19:35] LABS: SARS-CoV-2 RNA PCR Negative
== END 2020-04-14 01:08 | disposition home or self-care (01) ==
LOC: ANHCOVIDDT 01:07
PROVIDERS: PCP Family Medicine; Visit Provider Urology
DX: Z01.812 Encounter for preprocedural laboratory examination (principal); Z11.59 Encounter for screening for other viral diseases
CPT/HCPCS: 87635; C9803; U0003

== ENCOUNTER 2020-04-16 01:13 | Day surgery (SDC) | payer MEDICARE, BC, SELFPAY ==
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
[2020-04-08 08:28] VITALS: BMI 25.0
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
[2020-04-16] VITALS (8 sets, daily range): BP systolic 100–129; BP diastolic 53–60; PULSE 66–89; RESP 10–20; TEMP 36.2–36.3; O2SAT 96–100
--- NOTE | ~2020-04-16 | XR_ITS ---
EXAMINATION: XR retrograde pyelogram BI EXAM DATE: 04/16/2020 07:48 INDICATION: Bilateral retrograde. Urinary tract infections. TECHNIQUE: Fluoroscopy used during XR retrograde pyelogram BI performed by Dr. Elliot Redman MD . The DAP for this procedure was 0.6 mGym2. Cine run(s) available for review. FINDINGS: Both ureters were cannulated, injected and are unremarkable, without filling defects or st rictures identified. Correlate with procedure note. IMPRESSION: Fluoroscopy used during XR retrograde pyelogram BI. Reviewed, dictated and finalized at location A.
[2020-04-16] MEDS: LACTATED RINGERS 1,000 ML 30 ML IV CONT (06:40)
--- NOTE | 2020-04-16 06:58 | WPDHPUPDATE1 ---
History and Physical Update Update Date/Time: 04/16/20 06:58 History and Physical has been reviewed, including an updated exam of the patient. There are NO changes in the patient's condition. Risks, benefits, and alternatives have been discussed and questions answered. Patient agrees to proceed with procedure.
[2020-04-16] MEDS: ceFAZolin 2 GM/D5W 50 ML 2 GM/50 ML BAG IVPB (07:17)
[2020-04-16] MEDS: LIDOCAINE HCL 2% GEL UROJET 10 ML PKG MUCOUS MEM (07:40)
[2020-04-16 07:57] LABS: Glucose Point of Care 99 (65-105)
--- NOTE | 2020-04-16 08:17 | PM.PROC ---
Procedure Note - Detailed Date of procedure: 04/16/20 Pre-op diagnosis: Retention of Urine, Gross Hematuria Post-op diagnosis: same Procedure performed: 1. TURBT (medium, 3-4cm). 2. Cysto., bilat. ritrograde pyelogram. Description of procedure: The patient was brought to the operative suite where he is prepped and draped in a routine sterile fashion while in the dorsal lithotomy position. This is done after the uneventful administration of a general anesthetic. 2% Xylocaine jelly is introduced intraurethrally and allowed to stand for an appropriate period of time. First, I inspected the bladder with a 22F rigid cystoscope and did bilateral retrograde pyelograms with a 8F bulb tip catheter. Ther is no obvious regrowth of neoplasm in the right posterior-lat. bladder wall and the remainder of the bladder is endoscopically normal. The pyelograms appear normal - without obstruction, filling defects or other identifidable pathology. Using a 24F resectescope I resected the site of prior resection in the right post-lat. wall extending to the right hemitrigone and bladder neck. This area is resected in its entirety with an attempt made to include detrusor muscle for pathological evaluation of invasion. I avoided any resection or cautery of the right ureteral orifice. The base and periphery of this resected side is cauterized with a loop electrode. The bladder is emptied and the resectoscope was removed. The patient is taken to the recovery room having tolerated this procedure well. Anesthesia: GLMA Surgeon: Elliot Redman MD Estimated blood loss (mL): 0 Drains: Yes (18F Son) Packing: No Pathology: yes Complications: No immediate complications Condition: stable Disposition: PACU
[2020-04-16 08:31] LABS: Glucose Point of Care 110 (65-105)
--- NOTE | 2020-04-16 08:45 | SUR.PHASEI ---
[id number] DR GARCIA AT BEDSIDE TO SEE PT, URINE LOOKS GOOD, OK TO REMOVE PORRAS CATHETER. DOESN'T NEED TO URINATE BEFORE DISCHARGE
== END 2020-04-16 09:55 | disposition home or self-care (01) ==
PROVIDERS: PCP Family Medicine; Visit Provider Urology
PROC: 0TBB8ZZ Excision of Bladder, Via Natural or Artificial Opening Endoscopic (ICD-10-PCS; CPT 52235; principal; 2020-04-16 07:30)
PROC: (CPT 52352; 2020-04-16 07:30)
DX: C67.8 Malignant neoplasm of overlapping sites of bladder (principal); R33.9 Retention of urine, unspecified; I10 Essential (primary) hypertension; E11.9 Type 2 diabetes mellitus without complications; E78.5 Hyperlipidemia, unspecified; D50.9 Iron deficiency anemia, unspecified; Z79.84 Long term (current) use of oral hypoglycemic drugs
CPT/HCPCS: 52235; 74420; 88108; 88305; 88307; A9270; C1769; C1887; J0690; J1100; J2001; J2370; J2704; J3010; J7120; Q9966

== ENCOUNTER 2020-04-20 08:20 | Outpatient (CLI) | payer MEDICARE, BC, SELFPAY ==
[2020-04-20 08:58] LABS: Basophils Absolute Auto 0.1 K/mm3 (0.0-0.1); Basophils Percent Auto 0.8 % (0.2-1.2); Eosinophils Absolute Auto 0.4 K/mm3 (0-0.3); Eosinophils Percent Auto 6.5 % (0-4.4); Hematocrit 33.4 % (42.0-52.0); Hemoglobin 10.9 g/dL (14.0-18.0); Immature Granulocyte Absolute 0.02 K/mm3 (0.00-0.031); Immature Granulocyte Percent A 0.3 % (0-0.5); Lymphocytes Absolute Auto 1.64 K/mm3 (0.9-3.2); Lymphocytes Percent Auto 26.2 % (18.3-44.2); Mean Corpuscular HGB Conc 32.6 g/dl (32-36); Mean Corpuscular Hemoglobin 29.5 pg (26-34); Mean Corpuscular Volume 90.5 fl (80-100); Mean Platelet Volume 9.5 fl (7.4-10.4); Monocytes Absolute Auto 0.6 K/mm3 (0.1-0.6); Monocytes Percent Auto 10.2 % (2.6-8.5); Neutrophils Absolute Auto 3.5 K/mm3 (1.3-6.7); Platelet Count Result 308 k/mm3 (150-375); Red Blood Count 3.69 M/mm3 (4.6-6.20); Red Cell Distribution Width 14.4 % (11.5-14.5); White Blood Count 6.3 K/mm3 (4.5-10.0)
[2020-04-20 09:12] LABS: Alanine Aminotransferase 9 U/L (4-50); Albumin Level 3.8 g/dL (3.5-5.1); Alkaline Phosphatase 72 U/L (38-126); Anion Gap 7 mmol/L (8-16); Aspartate Amino Transferase 28 U/L (17-59); Bilirubin,Total 0.2 mg/dL (0.2-1.3); Blood Urea Nitrogen 21 mg/dL (9-20); Carbon Dioxide 26 mmol/L (22-30); Chloride 104 mmol/L (98-107); Estimated Glomerular Filt Rate > 60; Glucose 100 mg/dL (75-110); Potassium 4.3 mmol/L (3.4-5.0); Sodium 137 mmol/L (137-145)
[2020-04-20 10:00] LABS: Iron 60 ug/dL (49-181)
[2020-04-20 10:10] LABS: Percent Iron Saturation 20 % (20-50)
== END 2020-04-20 08:21 | disposition home or self-care (01) ==
PROVIDERS: PCP Family Medicine; Visit Provider Physician Assistant
DX: C68.9 Malignant neoplasm of urinary organ, unspecified (principal); D50.9 Iron deficiency anemia, unspecified; E53.8 Deficiency of other specified B group vitamins; I10 Essential (primary) hypertension; E11.9 Type 2 diabetes mellitus without complications
CPT/HCPCS: 36415; 80053; 82607; 82728; 82746; 83540; 83550; 85025

== ENCOUNTER 2020-05-08 08:28 | Outpatient (CLI) | payer MEDICARE, BC, SELFPAY ==
--- NOTE | ~2020-05-08 | NM_ITS ---
EXAMINATION: NM bone scan whole body DATE: 05/08/2020 11:51 INDICATION: Malignant neoplasm of overlapping sites of bladder. TECHNIQUE: 24.5 mCi Tc-99m HDP was administered intravenously. Delayed whole-body scintigrams were o btained. COMPARISON: CT abdomen and pelvis dated 03/18/2020 and chest dated 03/16/2017 FINDINGS: There is diffuse increased uptake at the distal left femur and proximal tibia surrounding a photopeni c defects such with a left total knee arthroplasty. The degree of likely postoperative bone uptake re meron within normal limits. Moderate osteoarthritis related uptake at the medial and patellofemoral c ompartments of the right knee. Moderate right-sided and mild left-sided uptake at the sternoclavicula r joints with corresponding right-sided predominant osteoarthritis on prior CT. Additional mild degen erative joint centered uptake at the radial aspect of the bilateral carpi, at the bilateral first met atarsophalangeal joints in the feet at the bilateral lower cervical facet joints. There is also mild degenerative disc centered uptake at the left side of L5-S1 with corresponding degenerative endplate changes. Subtle increased uptake associated with old healed fracture deformity at the proximal right femoral diaphysis. Decreased uptake at the atrophic right kidney. No suspicious foci of bone uptake t o suggest osseous metastatic disease. IMPRESSION: 1. No suspicious foci of bone uptake to suggest osseous metastatic disease. 2. Scattered regions of increased uptake associated with old healed right femoral diaphyseal fracture , left total knee arthroplasty and scattered chronic degenerative skeletal changes. Reviewed, dictated and finalized at location A. IMPRESSION: 1. No suspicious foci of bone uptake to suggest osseous metastatic disease. 2. Scattered regions of increased uptake associated with old healed right femor al diaphyseal fracture, left total knee arthroplasty and scattered chronic dege nerative skeletal changes.
== END 2020-05-08 08:29 | disposition home or self-care (01) ==
PROVIDERS: PCP Family Medicine; Visit Provider Urology
DX: C67.8 Malignant neoplasm of overlapping sites of bladder (principal); R91.8 Other nonspecific abnormal finding of lung field
CPT/HCPCS: 78306; A9561

== ENCOUNTER 2020-06-03 11:01 | Outpatient (CLI) | payer MEDICARE, BC, SELFPAY ==
[2020-06-03 11:24] LABS: Basophils Absolute Auto 0.1 K/mm3 (0.0-0.1); Basophils Percent Auto 0.9 % (0.2-1.2); Eosinophils Absolute Auto 0.2 K/mm3 (0-0.3); Eosinophils Percent Auto 3.3 % (0-4.4); Hematocrit 34.7 % (42.0-52.0); Hemoglobin 11.3 g/dL (14.0-18.0); Immature Granulocyte Absolute 0.01 K/mm3 (0.00-0.031); Immature Granulocyte Percent A 0.2 % (0-0.5); Lymphocytes Absolute Auto 1.39 K/mm3 (0.9-3.2); Lymphocytes Percent Auto 25.8 % (18.3-44.2); Mean Corpuscular HGB Conc 32.6 g/dl (32-36); Mean Corpuscular Hemoglobin 29.5 pg (26-34); Mean Corpuscular Volume 90.6 fl (80-100); Mean Platelet Volume 8.8 fl (7.4-10.4); Monocytes Absolute Auto 0.5 K/mm3 (0.1-0.6); Neutrophils Absolute Auto 3.2 K/mm3 (1.3-6.7); Neutrophils Percent Auto 59.8 % (45.5-73.1); Platelet Count Result 240 k/mm3 (150-375); Red Blood Count 3.83 M/mm3 (4.6-6.20); White Blood Count 5.4 K/mm3 (4.5-10.0)
[2020-06-03 12:02] LABS: Iron 89 ug/dL (49-181)
[2020-06-03 12:03] LABS: Alanine Aminotransferase 7 U/L (4-50); Albumin Level 3.8 g/dL (3.5-5.1); Alkaline Phosphatase 86 U/L (38-126); Anion Gap 6 mmol/L (8-16); Aspartate Amino Transferase 20 U/L (17-59); Bilirubin,Total 0.4 mg/dL (0.2-1.3); Blood Urea Nitrogen 24 mg/dL (9-20); Calcium 9.6 mg/dL (8.4-10.2); Carbon Dioxide 28 mmol/L (22-30); Chloride 103 mmol/L (98-107); Estimated Glomerular Filt Rate > 60; Glucose 169 mg/dL (75-110); Potassium 4.4 mmol/L (3.4-5.0); Sodium 137 mmol/L (137-145)
[2020-06-03 12:12] LABS: Percent Iron Saturation 28 % (20-50)
== END 2020-06-03 11:02 | disposition home or self-care (01) ==
PROVIDERS: PCP Family Medicine; Visit Provider Internal Medicine Hematology & Oncology
DX: C67.9 Malignant neoplasm of bladder, unspecified (principal); D64.9 Anemia, unspecified
CPT/HCPCS: 36415; 80053; 82607; 82728; 83540; 83550; 85025

== ENCOUNTER 2020-06-10 02:48 | Outpatient (CLI) | payer MEDICARE, BC, SELFPAY ==
[2020-06-10 18:24] LABS: SARS-CoV-2 RNA PCR Negative
== END 2020-06-10 02:49 | disposition home or self-care (01) ==
LOC: ANHCOVIDDT 02:50
PROVIDERS: Urology; PCP Family Medicine; Visit Provider Surgery
DX: Z01.812 Encounter for preprocedural laboratory examination (principal); Z20.828 Contact with and (suspected) exposure to other viral communicable diseases
CPT/HCPCS: 87635; C9803; U0003

== ENCOUNTER 2020-06-10 09:11 | Outpatient (CLI) | payer MEDICARE, BC, SELFPAY ==
[2020-06-10 09:52] LABS: Prothrombin Time 13.2 Seconds (11.1-14.7)
[2020-06-10 09:53] LABS: Partial Thromboplastin Time 34.6 SECONDS (22.3-36.8)
== END 2020-06-10 09:12 | disposition home or self-care (01) ==
LOC: ANHSURGERY 09:14
PROVIDERS: PCP Family Medicine; Visit Provider Surgery
DX: C68.9 Malignant neoplasm of urinary organ, unspecified (principal)
CPT/HCPCS: 36415; 85610; 85730; 87635; C9803; U0003

== ENCOUNTER 2020-06-12 01:03 | Day surgery (SDC) | payer MEDICARE, BC, SELFPAY ==
[2020-06-09 15:14] VITALS: BMI 25.3
--- NOTE | ~2020-06-12 | XR_ITS ---
EXAMINATION: XR fl guide central line place DATE: 06/12/2020 10:16 INDICATION: Port placement. TECHNIQUE: A single intraoperative fluoroscopic view of the chest was obtained. I was not present. Fl uoroscopy exposure time was 28 seconds. COMPARISON: Chest 2 views 03/19/2020 FINDINGS: There is a right internal jugular port with tip in right atrium. IMPRESSION: 1. Port tip in right atrium. Reviewed, dictated and finalized at location A.
--- NOTE | ~2020-06-12 | XR_ITS ---
XR chest port-a-cath/central DATE: 06/12/2020 10:27 INDICATION: Port-A-Cath insertion TECHNIQUE: Portable AP chest on 06/12/2020 at 1027 hours COMPARISON: 03/29/2022 view chest FINDINGS: Interval placement of right Port-A-Cath, catheter tip near superior cavoatrial junction. No evidence of pneumothorax. There is chronic mild elevation of the diaphragm. There is mild infiltrate and/atelectasis at the rig ht lung base. The lungs otherwise appear clear. No pleural effusion or pulmonary vascular congestion or pneumothorax. No hilar or mediastinal enlarge ment. Normal heart size. Mild aortic calcification and unfolding. Diffuse osteopenia. Degenerative spurring of the thoracic spine. IMPRESSION: Right Port-A-Cath catheter placement, catheter tip near superior cavoatrial junction No evidence of pneumothorax Chronic moderate elevation of the right leaf of diaphragm Patchy infiltrate or atelectasis at right lung base Reviewed, dictated and finalized at Location A. Reviewed, dictated and finalized at location B. IMPRESSION: Right Port-A-Cath catheter placement, catheter tip near superior ca voatrial junction No evidence of pneumothorax Chronic moderate elevation of the right leaf of diaphragm Patchy infiltrate or atelectasis at right lung base
[2020-06-12] MEDS: LACTATED RINGERS 1,000 ML 30 ML IV CONT ×2 (08:00→10:15)
[2020-06-12 08:01] VITALS: BP 121/55; PULSE 84; RESP 20; TEMP 36.4; O2SAT 100
[2020-06-12 08:06] LABS: Glucose Point of Care 102 (65-105)
--- NOTE | 2020-06-12 08:09 | WPDANESEPPF ---
Anes - Initial Pre Proc Eval Procedure: Operation Date: 06/12/20 09:00 Proposed Procedures p Insertion Juliane Cath - Magdy Lindo MD Date/Time: 06/12/20 08:09 Surgeon: Magdy Lindo MD Pre Op Diagnosis: Bladder Ca Patient Data Age: 80 Gender: M Height: 6 ft 3 in Weight: 90.3 kg Last Vital Signs Temp 97.6 F 06/12/20 08:01 Pulse 84 06/12/20 08:01 Resp 20 06/12/20 08:01 BP 121/55 L 06/12/20 08:01 Pulse Ox 100 06/12/20 08:01 Allergies Allergy/AdvReac Type Severity Reaction Status Date / Time Penicillins Allergy Mild Rash Verified 06/09/20 15:11 Home Medications Medication Instructions Recorded Confirmed Type polyethylene glycol 3350 17 17 gm PO PRN PRN 09/17/19 06/12/20 History gram/dose oral powder metformin 1,000 mg tablet 1,000 mg PO BID #180 tablet 10/22/19 06/12/20 Rx tamsulosin 0.4 mg capsule 0.4 mg PO DAILY #90 cap 01/20/20 06/12/20 Rx acetaminophen [Tylenol Arthritis 650 mg PO PRN PRN 02/17/20 06/12/20 History Pain] cyanocobalamin (vitamin B-12) 1,000 mcg PO QAM #30 tablet 03/23/20 06/12/20 Rx [Vitamin B-12] ferrous sulfate 325 mg (65 mg 650 mg PO .every other day tablet 04/28/20 06/12/20 History iron) tablet lisinopril 2.5 mg tablet 2.5 mg PO DAILY #90 tablet 04/28/20 06/12/20 Rx aspirin [Aspirin Low Dose] 81 mg PO DAILY 05/27/20 06/12/20 History Laboratory Tests 06/12/20 08:04 POC Capillary Glucose 102 mg/dl mg/dl (65-105) Patient hx anesthesia problems: none Family hx anesthesia problems: none PMFSH Social History Social History (Updated 06/09/20 @ 09:58 by Africa Glynn) Social History: He is and lives with his . He has 3 children. 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 The patient desires to be a full code. He is a lifelong nonsmoker. And maybe drinks 6 beers a month. He uses no marijuana or illicit drugs. 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 Smoking status: Never smoker Second hand tobacco smoke exposure: No Alcohol intake: current Drinks per week: 7 Substance use: never Substance use type: does not use Living arrangements: with family Additional living arrangements comments: Elise Valladares Gender identity (if verbalized by the patient): Male Spiritual care concerns: No Agree to blood products: Yes Anes - Eval Final PreProcedure Day of Procedure 06/12/20 08:09 Patient weight: normal Heart: regular rate and rhythm Lungs: clear to auscultation Airway: Mallampati scale class II Neurological: alert and oriented Last oral intake: >/= 8 hours ASA classification: III Emergent: no Anesthetic plan: proceed Anesthesia type and monitoring: general GIVS and standard monitoring Informed Consent: The patient's anesthetic plan and its attendant risks and benefits were discussed with the patient/family/POA. Questions were solicited and answers provided to the satisfaction of the patient/family/POA.
[2020-06-12] MEDS: KETOROLAC 15 MG/ML VIAL (*BKC) IV PUSH (08:10)
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
--- NOTE | 2020-06-12 09:10 | WPDHPUPDATE1 ---
History and Physical Update Update Date/Time: 06/12/20 09:10 History and Physical has been reviewed, including an updated exam of the patient. There are NO changes in the patient's condition. Risks, benefits, and alternativesfor placement of a Juliane-cath have been discussed and questions answered. Patient agrees to proceed with procedure.
[2020-06-12] MEDS: ceFAZolin 2 GM/D5W 50 ML 2 GM/50 ML BAG IVPB (09:16)
[2020-06-12] MEDS: BUPIVACAINE/EPINEPHRINE 0.5% 10 ML VIAL 12 ML INFILTRATE (09:57)
[2020-06-12] MEDS: HEPARIN SODIUM 5,000 UNITS/ML VIAL 5000 UNITS IRRIGATION (09:57)
--- NOTE | 2020-06-12 10:13 | PM.PROC ---
Procedure Note - Detailed Date of procedure: 06/12/20 Pre-op diagnosis: Bladder Ca Post-op diagnosis: same Procedure performed: Ultrasound-guided placement of Port-A-Cath Description of procedure: Patient was seen and marked in the pre-op area prior to coming to the OR. Patient was brought to the operating room. He was placed supine on the operating table and general IV sedation was induced. The nurse ripening room operator provided oxygen and IV sedation. Patient's head was carefully turned to the left side while in the supine position and the patient's entire neck and anterior chest on both sides was prepped and draped in the usual sterile fashion. Following this the appropriate time-out was completed confirming procedure and patient. We confirmed that all the needed equipment was present in the room. Following this the ultrasound probe was draped into the field and using the probe we carefully identified the carotid artery and jugular vein on the right neck. I marked the skin directly over the Rt. internal jugular vein. Following this, using the continuous ultrasound guidance, a Cook needle was placed through the skin into this vein. I then was able to draw back good dark blood. Once this was completed a guidewire using a J-tip was advanced through the needle and then the needle and the guidewire cover were withdrawn. C-arm fluoroscopy was used to confirm that the guidewire was nicely in the venous system. Once this was confirmed with the C - arm I preceded on by making the pocket for the port on the patient's anterior right chest approximately 3 centimeters below the clavicle overlying the chest wall. Local anesthetic was infiltrated into the skin where there was a transverse incision marked out. Incision was made and we made a pocket inferior to the incision with just a little dissection superior. The low-profile port was tried in the pocket and seemed to fit well. Following this the catheter which had been placed on a tunneling device was tunneled from the port site on the anterior right chest up to the right neck where a small incision had been made with an #11 blade knife. Then the catheter was pulled through so that we would have 15 centimeters to put into the central venous system once the dilation took place. Following this we placed the dilator and sheath over the guidewire in the jugular vein and carefully dilated the tract into the central venous system. The guidewire and dilator were then removed, carefully covering the end of the sheath to prevent air embolus. The end of the catheter which had been cut off straight across and the tip checked was then inserted into the sheath and into the neck. I then carefully pulled the 2 arms of the tear-away sheath away as the assistant administrator held the catheter in position with a DeBakey forceps. Following this we checked the position of the catheter with C-arm fluoroscopy confirming that the tip seemed to be in the distal superior vena cava near the junction with the right atrium. I felt that it was in good position and so the rest of the catheter was pulled down toward the feet into the port site. We then measured to the appropriate position to cut the catheter to attach it to the port stem. Then the connector sealing device for the catheter port was placed onto the catheter and then the catheter cut to the appropriate length and inserted onto the stem of the port. Then the connector was advanced onto the stem over the catheter sealing it to the port. A single 3- 0 Prolene suture was also used during this to suture the connector to the port and to the underlying musculature. Following this at one other site the port was sutured to the underlying musculature with the 3-0 Proline. Both prior to connecting the catheter to the port and then using a straight Dave needle following this connection, the port was aspirated of good dark blood and flushed with heparinized saline to keep the catheter from having any air in it and to
[2020-06-12 10:15] VITALS: BP 101/49; PULSE 84; RESP 12; O2SAT 99
--- NOTE | 2020-06-12 10:22 | SUR.PHASEII ---
CXR DONE AT BEDSIDE
[2020-06-12 10:45] VITALS: BP 118/54; PULSE 68; RESP 16
--- NOTE | 2020-06-12 10:50 | SUR.PHASEII ---
1030; WHEN TECH WENT TO GET PT UP TO RECLINER. SM AMT BLOOD NOTED ON SHEET. SKIN TEAR NOTED TO LT OUTER ELBOW IN [facility]. PT STATES HE FELL ABOUT A WEEK AGO. GAUZE AND COBAN APPLIED. DR PETERS NOTIFIED.
[2020-06-12 10:57] LABS: Glucose Point of Care 93 (65-105)
--- NOTE | 2020-06-12 11:11 | SUR.PHASEII ---
1100; PT AWAKE AND ALERT. DENIES PAIN. READY TO GO HOME. MEETS DISCHARGE CRITERIA.
== END 2020-06-12 11:11 | disposition home or self-care (01) ==
PROVIDERS: PCP Family Medicine; Visit Provider Surgery
PROC: (CPT 36561; principal; 2020-06-12 09:00)
DX: C67.9 Malignant neoplasm of bladder, unspecified (principal); I10 Essential (primary) hypertension; E11.9 Type 2 diabetes mellitus without complications; E78.5 Hyperlipidemia, unspecified; D50.9 Iron deficiency anemia, unspecified; Z79.84 Long term (current) use of oral hypoglycemic drugs; Z79.82 Long term (current) use of aspirin
CPT/HCPCS: 36561; 76937; 77001; C1788; J0690; J1644; J1885; J2704; J3010; J7030; J7120

== ENCOUNTER 2020-07-29 08:40 | Outpatient (CLI) | payer MEDICARE, BC, SELFPAY ==
[2020-07-29 16:48] LABS: Hemoglobin A1C 5.7 % (<5.7)
== END 2020-07-29 08:41 | disposition home or self-care (01) ==
LOC: ANHLAB 08:42
PROVIDERS: PCP Family Medicine; Visit Provider Physician Assistant
DX: E11.9 Type 2 diabetes mellitus without complications (principal)
CPT/HCPCS: 36415; 83036

== ENCOUNTER 2020-09-28 10:04 | Outpatient (CLI) | payer MEDICARE, BC, SELFPAY ==
--- NOTE | ~2020-09-28 | CT_ITS ---
EXAMINATION: CT abdomen pelvis wo/w con EXAM DATE: 09/28/2020 11:35 INDICATION: Malignant neoplasm of urinary bladder. Frequent urination. TECHNIQUE: Spiral CT of the abdomen and pelvis was performed without and then with intravenous inject ion of 100 mL Omnipaque 350. Axial, coronal and sagittal images were reviewed. The dose-length pro duct (DLP) for this examination was 1810.19 mGy-cm. The exposure was tailored according to patient s ize (auto mA exposure control), and iterative reconstruction (ASIR) was used as additional dose reduc tion technique. Comparison is made to prior examination from 03/18/2020. FINDINGS: Colonic interposition. Gallbladder not identified, patient likely has had cholecystectomy. No focal liver lesions. Spleen, adrenal glands, pancreas are unremarkable. Moderate to severe right renal atrophy. There is a left renal cyst measuring 4 cm. No hydronephrosis. The prostate is unrema rkable. Some diffuse bladder wall thickening, could indicate chronic cystitis. Acute cystitis not ex cludable. Appearance is similar to prior study in March. There is no retroperitoneal or pelvic lymphad enopathy. There is mild to moderate scattered arteriosclerotic disease. The appendix is not positively visualized. There is no pericecal inflammatory change to suggest appe ndicitis. There is mild to moderate colonic diverticulosis. There is no adjacent inflammatory change to suggest diverticulitis. There is a 2 cm duodenal diverticulum. There is moderate amount of colon ic stool. No free intraperitoneal gas. The heart is normal in size. There are no pericardial or pleural effusions. Left basilar linear atelectasis. There are no osteoblastic or osteolytic lesions identified. IMPRESSION: 1. Stable exam. 2. Mild diffuse bladder wall thickening unchanged, could be acute or chronic cystitis. 3. Colonic diverticulosis. 4. Right renal atrophy. Reviewed, dictated and finalized at location A. BER IMPRESSION: 1. Stable exam. 2. Mild diffuse bladder wall thickening unchanged, could be acute or chronic c ystitis. 3. Colonic diverticulosis. 4. Right renal atrophy.
== END 2020-09-28 10:05 | disposition home or self-care (01) ==
PROVIDERS: PCP Family Medicine; Visit Provider Internal Medicine Hematology & Oncology
DX: C67.9 Malignant neoplasm of bladder, unspecified (principal); K57.30 Diverticulosis of large intestine without perforation or abscess without bleeding
CPT/HCPCS: 74178; Q9967

== ENCOUNTER 2020-12-11 08:30 | Outpatient (CLI) | payer MEDICARE, BC, SELFPAY ==
--- NOTE | ~2020-12-11 | CT_ITS ---
EXAMINATION: CT abdomen pelvis wo/w con EXAM DATE: 12/11/2020 09:20 INDICATION: Urinary bladder cancer. TECHNIQUE: Spiral CT of the abdomen and pelvis was performed without contrast. The patient was then injected with small bolus intravenous Omnipaque 350, followed by delay of approximately 10 minutes to allow collecting system to opacify. A post contrast scan abdomen and pelvis was performed during inj ection of remaining contrast. A total of 130 cc intravenous contrast was administered. The dose-zari th product (DLP) for this examination was 2523.45 mGy-cm. The exposure was tailored according to pat ient size (auto mA exposure control), and iterative reconstruction (ASIR) was used as additional dose reduction technique. Comparison is made to prior examination from 09/28/2020. FINDINGS: Moderate to severe chronic right renal atrophy. There is a left renal cyst measuring 3.8 cm . There is no hydronephrosis or nephrolithiasis. The kidneys enhance symmetrically. There are no alvarado spicious renal lesions. The calyces and opacified portions of ureters are unremarkable, without fill ing defects or focal suspicious strictures. Again there is diffuse moderate thickening of the bladde r wall with trabecular appearance, but no focal superimposed regions of thickening. Appearance is mos t consistent with chronic cystitis. The prostate is unremarkable. The liver, spleen, adrenal glands and pancreas are unremarkable. There are cholecystectomy clips. T here is no retroperitoneal or pelvic lymphadenopathy. There is mild scattered arteriosclerotic dise ase. The appendix is not positively visualized. There is no pericecal inflammatory change to suggest appe ndicitis. Several small duodenal diverticula. There is mild sigmoid colonic diverticulosis. There is no adjacent inflammatory change to suggest diverticulitis. The stomach and small bowel are unremarka ble. There is expected amount of colonic stool. No free intraperitoneal gas. The heart is normal in size. There are no pericardial or pleural effusions. There is chronic right h emidiaphragm elevation which could indicate paralysis. There is right basilar segmental atelectasis. Left lower lobe 5 mm granuloma. There are no osteoblastic or osteolytic lesions identified. IMPRESSION: 1. Chronic diffuse bladder wall thickening unchanged, most consistent with chronic cystitis. 2. Chronic right hemidiaphragm elevation could indicate paralysis. Adjacent atelectasis. 3. Sigmoid and duodenal diverticulosis. 4. No evidence of metastatic disease. Reviewed, dictated and finalized at location A. IMPRESSION: 1. Chronic diffuse bladder wall thickening unchanged, most consistent with chr onic cystitis. 2. Chronic right hemidiaphragm elevation could indicate paralysis. Adjacent at electasis. 3. Sigmoid and duodenal diverticulosis. 4. No evidence of metastatic disease.
== END 2020-12-11 08:31 | disposition home or self-care (01) ==
PROVIDERS: Family Provider Internal Medicine; PCP Family Medicine; Visit Provider Internal Medicine Hematology & Oncology
DX: C67.9 Malignant neoplasm of bladder, unspecified (principal); R91.8 Other nonspecific abnormal finding of lung field; K57.90 Diverticulosis of intestine, part unspecified, without perforation or abscess without bleeding
CPT/HCPCS: 74178; Q9967

== ENCOUNTER 2020-12-16 13:28 | Outpatient (CLI) | payer MEDICARE, BC, SELFPAY ==
--- NOTE | 2020-12-16 13:51 | ECHO_ITS ---
Patient Info Name: Brian Valladares Age: 80 years : 1940 Gender: Male Ht: 75 in Wt: 217 lbs BSA: 2.29 m2 HR: 78 bpm BP: 138 / 71 mmHg Technical Quality: Fair Exam Date: 12/16/2020 2:22 PM Exam Location: [facility] Patient Status: Outpatient Admit Date: 12/16/2020 Staff Ordering Physician: Dante Lacey DO Laundry Clerk: Sulema Acevedo RDCS Attending Provider: Dante Lacey DO Referring Physician: Abhijit BROWN; Exam Type: CA echo dop color flow w con Study Info Indications - chest pain Complete two-dimensional, color flow and Doppler transthoracic echocardiogram is performed with contrast to opacify the left ventricle and to improve the deliniation of the left ventricle endocardial borders. Contrast/Agitated Saline Contrast/Ag. Saline: Definity Amount: 1.00 ml Administered By: Starr Barksdale RN New IV Access: Right Summary 1. Left ventricular chamber dimension is mildly enlarged. 2. Definity contrast administered improved wall motion interpretation. 3. Left ventricular systolic function is normal, estimated at 55-60%. 4. The left ventricular diastolic function is grade I diastolic dysfunction. 5. E/e' 7 is not elevated. 6. The mitral valve has mildly calcified leaflets. 7. No pulmonary hypertension, estimated pulmonary arterial systolic pressure is 24 mmHg. Left Ventricle E/e' 7 is not elevated. Definity contrast administered improved wall motion interpretation. Left ventricular chamber dimension is mildly enlarged. Left ventricular systolic function is normal, estimated at 55-60%. The left ventricular diastolic function is grade I diastolic dysfunction. Right Ventricle Right ventricular chamber dimension is normal. Right ventricular systolic function is normal. Left Atria Left atrial chamber dimension is normal. Right Atria Right atrial chamber dimension is normal. Aortic Valve The aortic valve is trileaflet. There is no aortic valve stenosis. There is no aortic valve regurgitation. Pulmonic Valve There is no pulmonic regurgitation. Mitral Valve The mitral valve has mildly calcified leaflets. There is no mitral valve stenosis. There is no mitral valve regurgitation. Tricuspid Valve There is no tricuspid valve regurgitation. No pulmonary hypertension, estimated pulmonary arterial systolic pressure is 24 mmHg. Pericardium/Pleural There is no pericardial effusion. Inferior Vena Cava Normal inferior vena cava with >50% collapse upon inspiration consistent with normal right atrial pressure, 5 mmHg. Aorta The aortic root size at the sinus of Valsalva is normal. Left Ventricular Outflow Tract Name Value Normal LVOT 2D LVOT Diameter 2.12 cm LVOT Doppler LVOT Peak Gradient 4 mmHg LVOT Mean Gradient 2 mmHg LVOT VTI 21.05 cm LVOT VTI/AV VTI Ratio 0.71 LVOT Stroke Volume 74.06 ml LVOT CO 15.57 l/min LVOT CI
== END 2020-12-16 13:29 | disposition home or self-care (01) ==
PROVIDERS: PCP Family Medicine; Visit Provider Internal Medicine Cardiovascular Disease
DX: R07.89 Other chest pain (principal); I51.89 Other ill-defined heart diseases
CPT/HCPCS: C8929; Q9957

== ENCOUNTER 2021-01-21 14:30 | Outpatient (RCR) | payer MEDICARE, BC, SELFPAY ==
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
--- NOTE | 2021-01-21 15:25 | PTOPEVAL ---
PHYSICAL THERAPY DISCHARGE SUMMARY Thank you for referring Brian Valladares to [facility].? Daniel was seen for 9 visits. His initial c/o's back and R hip pain have been eliminated - all goals have been met. He has returned to having R knee pain as his main source of pain. He is to continue with his HEP on a regular basis. I agree with Daniel's discharge from PT. Referring Physician Date Admitting Provider: Attending Provider: Mansoor Haddad MD Referring Provider: Therapy Assessment Status Assessment Status Assessment Status Discharge Evaluation Information Problem Diagnosis radiculopathy - lumbar region Subjective Information Daniel denies any back pain. Query Text:As Reported By Patient/ When sitting - when first sits Family down will R thigh pain - like when he broke it many years ago. Once he gets settled that pain goes away. Sleeping is going okay. R knee pain is the most bothersome. Pain Assessment Self Report Pain Assessment Right Knee(s) Reported Pain Level 4 Lowest Pain Intensity 2 Greatest Pain Intensity 6 Right Hip(s) Reported Pain Level 0 Cervical and Lumbar ROM Lumbar ROM Lumbar Flexion (0-90) 45 Query Text:Active in Degrees Lumbar Extension (0-40) 15 Query Text:Active in Degrees Lumbar Lateral Flexion Right (0-40) 15 Query Text:Active in Degrees Lumbar Lateral Flexion Left (0-40) 15 Query Text:Active in Degrees Lumbar Comments no c/o's discomfort with trunk AROM pelvis level in standing Special Test-Spine Sacral Special Test Sacral Special Tests negative SIJ testing PT Clinical Summary Clinical Summary Protocol: PTEVCODE PT Clinical Summary Modified Oswestry LBP Quesionnaire - 2% Daniel has done well in PT in regards to back and R hip pain - all goals have been met. He is still having increase in R knee pain and R thigh pain upon initial sitting - but these are seperate pains from back and R hip pain that he initially came to PT for. He is independent and compliant with his HEP which he was encouraged to continue with on a usual basis. He is ready for d/c from PT to HEP.
== END 2021-01-25 10:36 | disposition home or self-care (01) ==
LOC: ANHPT 14:30
PROVIDERS: PCP Family Medicine; Visit Provider Orthopaedic Surgery
DX: M54.16 Radiculopathy, lumbar region (principal)
CPT/HCPCS: 97110; 97140; 97162

== ENCOUNTER 2021-08-11 08:26 | Outpatient (CLI) | payer MEDICARE, BC, SELFPAY ==
--- NOTE | ~2021-08-11 | CT_ITS ---
EXAMINATION: CT abdomen pelvis w con EXAM DATE: 08/11/2021 09:00 INDICATION: Bladder cancer. TECHNIQUE: Spiral CT of the abdomen and pelvis was performed following intravenous injection of 100 m L Omnipaque 350. Axial, coronal and sagittal images of the abdomen and pelvis were reviewed. The do se-length product (DLP) for this examination was 729.34 mGy-cm. The exposure was tailored according to patient size (auto mA exposure control), and iterative reconstruction (ASIR) was used as additiona l dose reduction technique. Comparison is made to prior examination from 12/11/2020. FINDINGS: Elevated right hemidiaphragm, adjacent subsegmental atelectasis. Atrophic left liver lobe medial segment versus wedge resection. Colonic interposition. There are cholecystectomy clips. Pancre as and adrenal glands are unremarkable. There is moderate to severe right renal atrophy. There is a 5 cm left renal cyst. No hydronephrosis. Mild diffuse bladder wall thickening and indistinct wall, pr obably chronic cystitis. Similar appearance on prior study in December. The prostate is unremarkable. There is no retroperitoneal or pelvic lymphadenopathy. There is mild scattered arteriosclerotic dis ease. There are no findings to suggest appendicitis. There is 2 cm duodenal diverticulum. The stomach and s mall bowel are unremarkable. There is expected amount of colonic stool. There is mild scattered colo micaela diverticulosis. There is no adjacent inflammatory change to suggest diverticulitis. No free int raperitoneal gas. The heart is normal in size. There are no pericardial or pleural effusions. The re are no osteoblastic or osteolytic lesions identified. IMPRESSION: 1. No evidence of metastatic disease. 2. Colonic, duodenal diverticulosis. 3. Chronic cystitis. Reviewed, dictated and finalized at location A. HOME TUTOR
[2021-08-11 08:49] LABS: Estimated Glomerular Filt Rate 48
== END 2021-08-11 08:27 | disposition home or self-care (01) ==
LOC: ANHIMG 08:26
PROVIDERS: PCP Family Medicine; Visit Provider Internal Medicine Hematology & Oncology
DX: C67.9 Malignant neoplasm of bladder, unspecified (principal); N30.20 Other chronic cystitis without hematuria; K57.30 Diverticulosis of large intestine without perforation or abscess without bleeding; K57.10 Diverticulosis of small intestine without perforation or abscess without bleeding
CPT/HCPCS: 74177; Q9967

== ENCOUNTER 2022-02-28 10:22 | Outpatient (CLI) | payer MEDICARE, BC, SELFPAY ==
--- NOTE | ~2022-02-28 | CT_ITS ---
EXAMINATION: CT abdomen pelvis w con INDICATION: Malignant neoplasm of the urinary bladder TECHNIQUE: Computed tomographic images of the abdomen and pelvis were obtained after the administrati on of 100 cc of Omnipaque 350 intravenous contrast. The dose-length product (DLP) was 775.89 mGy-cm. Automated exposure control and iterative reconstruction technique were employed. COMPARISON: 08/11/2021, 09/28/2020 FINDINGS: Minimal dependent atelectasis is present in the lung bases. The heart size is normal. There is chronic elevation of right hemidiaphragm with associated passive atelectasis. There are stable no dules in the visualized left lower lobe measuring up to 6 mm. There is calcified coronary artery athe rosclerosis. The gallbladder is surgically absent. The liver, spleen, and adrenal glands are unremark able. Calcification in the head of the pancreas is consistent with chronic pancreatitis. There is mil d atrophy of the right kidney. Cysts of the left kidney measure up to 4.1 cm. There is calcified athe rosclerosis of the aorta and many of the other arteries. No pathologically enlarged abdominal or pelv ic lymph nodes are identified. There is no free intraperitoneal gas or evidence of bowel obstruction. Colonic diverticulosis is present without evidence of diverticulitis. There is moderate lumbar spond ylosis. IMPRESSION: 1. No evidence of metastatic disease. Reviewed, dictated and finalized at location A.
[2022-02-28 11:11] LABS: Estimated Glomerular Filt Rate 58
== END 2022-02-28 10:23 | disposition home or self-care (01) ==
LOC: ANHIMG 10:24
PROVIDERS: PCP Family Medicine; Visit Provider Internal Medicine Hematology & Oncology
DX: C67.9 Malignant neoplasm of bladder, unspecified (principal)
CPT/HCPCS: 74177; Q9967

== ENCOUNTER 2022-04-20 09:31 | Outpatient (CLI) | payer MEDICARE, BC, SELFPAY ==
--- NOTE | ~2022-04-20 | MR_ITS ---
EXAMINATION: MR lumbar spine wo con DATE: 04/20/2022 10:13 INDICATION: Low back pain. TECHNIQUE: Magnetic resonance imaging (MRI) of the lumbar spine was performed without intravenous con trast. Sequences included sagittal T2-weighted FSE, sagittal T2-weighted FS FSE, sagittal T1-weighted FSE, and axial T2-weighted FSE. COMPARISON: Lumbar spine radiographs 03/29/2022, CT abdomen and pelvis 02/28/22 FINDINGS: There is 9 degrees levocurvature of lumbar spine. There are insufficiency fractures of the sacrum with bone marrow edema. Vertebral body heights are normal. There is severely decreased disc he ight at L4-L5 and L5-S1. The distal spinal cord signal intensity is normal. The conus medullaris is a t L1. There are cysts in the kidneys measuring up to 4.0 cm on the left. The following disc levels ar e specifically discussed: L1-L2: The disc is mildly bulging. There is mild bilateral facet joint osteoarthritis. There is mild bilateral neural foraminal stenosis. There is mild central canal stenosis. L2-L3: The disc is bulging. There is mild bilateral facet joint osteoarthritis. There is mild bilater al neural foraminal stenosis. There is no central canal stenosis. L3-L4: The disc is bulging. There is moderate right and mild left facet joint osteoarthritis. There i s mild bilateral neural foraminal stenosis. There is mild central canal stenosis. L4-L5: The disc is bulging and has an annular fissure. There is severe bilateral facet joint osteoart hritis. There is moderate bilateral neural foraminal stenosis. There is mild central canal stenosis. L5-S1: The disc is bulging and has an annular fissure. There is moderate bilateral facet joint osteoa rthritis. There is mild right and moderate left neural foraminal stenosis. There is mild central delores l stenosis. IMPRESSION: 1. Acute versus subacute sacral insufficiency fractures. 2. Severe lower lumbar spondylosis. Reviewed, dictated and finalized at location A.
== END 2022-04-20 09:32 | disposition home or self-care (01) ==
PROVIDERS: PCP Family Medicine; Visit Provider Nurse Practitioner
DX: M47.896 Other spondylosis, lumbar region (principal)
CPT/HCPCS: 72148

== ENCOUNTER 2022-07-18 15:30 | Outpatient (RCR) | payer MEDICARE, BC, SELFPAY ==
--- NOTE | 2022-04-28 15:34 | PTOPEVAL ---
PHYSICAL THERAPY INITIAL EVALUATION. Thank you for referring Brian Valladares to [facility].? The patient is scheduled to be seen for therapy? 2x/week for 4 weeks. Please review, sign, date and return this plan of care JUAN. I agree with and certify that the following plan of care is medically necessary. Referring Physician Date Attending Provider: Mango Moore APN *PT Outpatient Evaluation Start: 04/28/22 Evaluation Information Subjective Information pretty bad pain about 6 Query Text:As Reported By Patient/ weeks. Started with R hip pain Family , then migrated over to left side w/ LLE numbness. Couldn't get out of bed 3-4 days. Say the doctor's product safety technical assistant this week, and once prior. Currently walking with FWW and sit on O ring but states this is painful and hard so hasn't been using this. Created a more comfortable one with padding. 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 Pain Assessment Bilateral Leg(s) Reported Pain Level 2 Pain Description With Movement Pain Radiation Left Leg,Right Leg Pain Frequency Acute Lowest Pain Intensity 0 Greatest Pain Intensity 8 Pain Aggravating Factors Bending,Changing Position, Weight Bearing/Standing Other Pain Aggravating Factors getting out of bed, sit to stand Pain Behaviors Guarding,Limping Additional Pain Comments shifts in sitting to keep pain decreased Lower Extremity Range of Motion General Lower Extremity Range of Motion WFL/Right Gross Lower Extremity Range of Motion LLE piriformis tightness, (+) Comments pain with pt reporting this is the location of the pain he has in buttocks. Lower Extremity Muscle Strength Testing Gross Lower Extremity Strength bilat hip flex 4/5 bilat knee flex/ext 4+/5 bilat hip abd 3/5 bilat hip ext 3/5 Muscle Length Testing Maximino Test Shortened Muscles Short (R) Rectus Femoris,Short (L) Rectus Femoris Piriformis w/Hip Flexion >90 Degrees (R) Mild Tightness,(L) Mild
--- NOTE | 2022-05-02 11:46 | PCPTNOTE ---
Patient did not show up for scheduled appointment this date; tried to call patient but no answer and voicemail is not set up.
--- NOTE | 2022-05-24 13:28 | PTOPPROG ---
Assessment and note entered by Lola Payne, PT, DPT Evaluation Information Assessment Status Progress Diagnosis low back pain and pelvic pain Onset chronic Subjective Information Pt states he is getting a little bit better. He states his pain moves around . Pt states he spends a lot of his time in his recliner. Pt states most of his pain is in his buttock. He states his pain increases with increased time in standing. His pain increased with forward flexion. He states he is now able to put on his own socks and shoes. Pt reports 35% improvement in overall symptoms. Pt states his pain is worse first thing in the morning. Assessment PT Clinical Summary Daniel presents to therapy today for his progress report follow 7 visits of therapy to treat his R hip pain. Today he reports the same intensity of pain throughout the weak but the frequency and during have both decreased. He demonstrates improved times with the 5xSTS and TUG, he also requires less assist of his UEs or an AD for both of these. His gait speed is about the same put he has progressed from a wheeled walker or intermittent use of a cane. He continues to demonstrates weakness and tightness throughout his LE. Continuation of skilled physial therapy services are indicated to address remaining deficts, to manage pain, to promote safety, and to return to baseline funciton. Plan of Care Interventions Gait Training,Manual Therapy,Neuro Re-education, Patient/Caregiver Education,Therapeutic Activities, Therapeutic Exercise PT Services Indicated Yes Treatment Frequency and continue 2x/wk for 4 wks Duration These treatments will address the objective and functional deficits as defined above. The patient will be advanced safely and appropriately in order for the patient to progress towards his/her prior level of function. Additional exercises will be introduced and as well as a comprehensive home exercise program upon discharge, if needed, ?to ensure carryover of functional gains achieved in the clinic. This treatment plan has been reviewed and agreement upon by the patient.
--- NOTE | 2022-06-21 13:32 | PTOPPROG ---
Assessment and note entered by Lola Payne, PT, DPT Evaluation Information Assessment Status Progress Diagnosis low back pain and pelvic pain Onset chronic Subjective Information Pt states his hip is doing better, he is just moving really slow. He states his first hour out of bed is the most difficult d/t stiffness in his back, he reports this as a catching feeling. He states he has been able to walk short distances around his home without his cane. He reports the pain has improved significantly. Assessment PT Clinical Summary Brian Sanchez presents to therapy today for his progress report following 14 visits of therapy to treat his hip and low back pain, and generalized weakness. He demonstrates slow progress strength, improved gait speed, less gait deviations, and improved times on his 5xSTS and TUG. He continues to lack hip extension beyond neutral. Continuation of skilled therapy services are indicated to progress strength, to improve balance, to minimize fall risk, and to promote safety with functional mobility. Plan of Care Interventions Gait Training,Manual Therapy,Neuro Re-education, Patient/Caregiver Educati,Therapeutic Activities, Therapeutic Exercise PT Services Indicated Yes Treatment Frequency and 1x/wk for 4 wks Duration These treatments will address the objective and functional deficits as defined above. The patient will be advanced safely and appropriately in order for the patient to progress towards his/her prior level of function. Additional exercises will be introduced and as well as a comprehensive home exercise program upon discharge, if needed, ?to ensure carryover of functional gains achieved in the clinic. This treatment plan has been reviewed and agreement upon by the patient.
--- NOTE | 2022-07-18 16:02 | PTOPDC ---
Assessment and note entered by Herminia An, PT Evaluation Information Assessment Status Discharge Diagnosis low back pain and pelvic pain Onset chronic Subjective Information Daniel reports: sleeping is better, can sleep in any position; 85-90% improvement since stated therapy ; using the cane about 50% time- is less, used to be almost all the time; Reported Pain Level Pain Score Self Report Additional Pain Score Comments pain range of 0-4/10 in low back, no pain in R buttock area; pain increase with getting in and out of bed; modify getting pants on with sitting down and putting legs in pant leg; R knee arthritis and pain all time when on it; knee pain is what limits him with activity; Assessment PT Clinical Summary Daniel has received 18 PT sessions. Compared to the last reevaluation: pain rating has decreased from 2-6/10 to 0-4/10; 5 reps sit/stand time has improved by 4 seconds; 2 minute walking test distance increased by 15'; slight increase in hip strength B; He continues to have tightness over B hamstrings and quad. R knee pain limits him with standing and balance activities. He is independent with his home exercises. The goals were partially achieved. Discharge PT services. Plan of Care PT Services Indicated No
== END 2022-07-19 07:59 | disposition home or self-care (01) ==
LOC: ANHPT 15:30
PROVIDERS: PCP Family Medicine; Visit Provider Nurse Practitioner
DX: M54.50 Low back pain, unspecified (principal)
CPT/HCPCS: 97110; 97112; 97140; 97161; 97530; 99199

== ENCOUNTER 2022-09-06 09:17 | Outpatient (CLI) | payer MEDICARE, BC, SELFPAY ==
--- NOTE | ~2022-09-06 | CT_ITS ---
EXAMINATION: CT abdomen pelvis wo/w con DATE: 09/06/2022 09:55 INDICATION: Malignant neoplasm of the urinary bladder TECHNIQUE: Computed tomography (CT) of the abdomen and pelvis was performed without intravenous contr ast. CT of the abdomen and pelvis was then performed with a total of 130 mL Omnipaque 350 intravenous contrast using a double-bolus technique for simultaneous opacification of the renal parenchyma and r enal collecting system. The dose-length product (DLP) was 2009.97 mGy-cm. Automated exposure control and iterative reconstruction technique were employed. COMPARISON: 02/28/2022 FINDINGS: Minimal dependent atelectasis is present in the lung bases. There is chronic elevation of r ight hemidiaphragm. A stable 6 mm nodule is present in the left lower lobe. The heart size is normal. The gallbladder is surgically absent. The liver, spleen, and adrenal glands are normal. A calcificat ion in the head of the pancreas is consistent with chronic pancreatitis. Again noted is chronic mild atrophy of the right kidney. There is a 5 mm cyst of the right kidney. Cysts of the left kidney measu re up to 4.1 cm. No suspicious renal or urothelial lesion identified. No pathologically enlarged abdo elliot or pelvic lymph nodes are identified. There is calcified atherosclerosis of the aorta and many of the other arteries. There is no free intraperitoneal gas or evidence of bowel obstruction. There h as been interval development of bilateral sacral insufficiency fractures as well as a transverse frac ture through the S2 level. There are also multiple new right-sided rib fractures. IMPRESSION: 1. No suspicious renal or urothelial lesion identified. 2. Interval development of bilateral sacral insufficiency fractures, transverse fracture through the S2 vertebral body, and multiple right-sided rib fractures. Reviewed, dictated and finalized at location L. N RESOURCES BENEFITS COORDINATOR IMPRESSION: 1. No suspicious renal or urothelial lesion identified. 2. Interval development of bilateral sacral insufficiency fractures, transverse fracture through the S2 vertebral body, and multiple right-sided rib fractures .
== END 2022-09-06 09:18 | disposition home or self-care (01) ==
LOC: ANHIMG 09:18
PROVIDERS: PCP Family Medicine; Visit Provider Internal Medicine Hematology & Oncology
DX: C67.9 Malignant neoplasm of bladder, unspecified (principal)
CPT/HCPCS: 74178; Q9967

== ENCOUNTER 2022-12-06 01:31 | Day surgery (SDC) | payer MEDICARE, BC, SELFPAY ==
[2022-11-23 14:47] VITALS: BMI 26.5
[2022-12-06 09:58] VITALS: BP 153/72; PULSE 90; RESP 20; TEMP 36.4; O2SAT 97; BMI 25.6
[2022-12-06] MEDS: LACTATED RINGERS 1,000 ML 150 ML IV CONT (10:06)
--- NOTE | 2022-12-06 10:17 | WPDHPUPDATE1 ---
History and Physical Update Update Date/Time: 12/06/22 10:17 History and Physical has been reviewed, including an updated exam of the patient. There are NO changes in the patient's condition. Risks, benefits, and alternatives have been discussed and questions answered. Patient agrees to proceed with procedure.
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
[2022-12-06 11:28] VITALS: BP 107/68; PULSE 82; RESP 20; O2SAT 97
[2022-12-06 11:38] VITALS: BP 118/68; PULSE 81; RESP 15; O2SAT 98
[2022-12-06 11:48] VITALS: BP 127/80; PULSE 72; RESP 20; O2SAT 99
== END 2022-12-06 11:54 | disposition home or self-care (01) ==
PROVIDERS: PCP Family Medicine; Visit Provider Internal Medicine Gastroenterology
PROC: 0DJD8ZZ Inspection of Lower Intestinal Tract, Via Natural or Artificial Opening Endoscopic (ICD-10-PCS; CPT 45378; principal; 2022-12-06 11:00)
DX: K59.00 Constipation, unspecified (principal); K57.30 Diverticulosis of large intestine without perforation or abscess without bleeding; K64.8 Other hemorrhoids; I10 Essential (primary) hypertension; E11.9 Type 2 diabetes mellitus without complications; E78.5 Hyperlipidemia, unspecified; D50.9 Iron deficiency anemia, unspecified
CPT/HCPCS: 45378; J2704; J7120

== ENCOUNTER 2023-02-08 14:50 | Observation (INO) | payer MEDICARE, BC, SELFPAY ==
--- NOTE | ~2023-02-08 | XR_ITS ---
EXAMINATION: XR knee RT 3V DATE: 02/08/2023 15:38 INDICATION: Right knee pain and swelling. TECHNIQUE: 3 views of right knee were obtained. COMPARISON: Right knee radiographs 05/30/2022 FINDINGS: There is varus angulation at the knee. No fracture. There is severe osteoarthritis of media l compartment and mild osteoarthritis of lateral and patellofemoral compartments. There is chondrocal cinosis of lateral meniscus. There is a small knee joint effusion. IMPRESSION: 1. Severe right knee osteoarthritis. 2. Small right knee joint effusion. Reviewed, dictated and finalized at location A.
--- NOTE | ~2023-02-08 | US_ITS ---
EXAMINATION: US venous doppler LE RT DATE: 02/08/2023 16:01 INDICATION: Right lower limb pain TECHNIQUE: Grayscale ultrasound images without and with compression and Doppler ultrasound images of the right lower extremity veins were obtained. COMPARISON: None. FINDINGS: The visualized portions of right common femoral vein, profunda (deep) femoral vein, femoral vein, pop liteal vein, peroneal trunk, posterior tibial veins, peroneal veins, gastrocnemius vein and greater s aphenous vein outflow are patent. 7.0 x 2.4 x 4.4 cm Shaikh's cyst, previously 5.0 x 1.0 x 1.7 cm. IMPRESSION: 1. No deep venous thrombosis in the right lower limb. 2. Interval increase in size of a moderate-sized Shaikh's cyst at the right popliteal fossa. Reviewed, dictated and finalized at location B. IMPRESSION: 1. No deep venous thrombosis in the right lower limb. 2. Interval increase in size of a moderate-sized Shaikh's cyst at the right popl iteal fossa.
[2023-02-08 14:50] VITALS: BP 135/77; PULSE 102; RESP 16; TEMP 36.9; O2SAT 97
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
[2023-02-08 15:33] LABS: Basophils Percent Auto 0.4 % (0.2-1.2); Eosinophils Percent Auto 0.4 % (0-4.4); Hemoglobin 11.8 g/dL (14.0-18.0); Immature Granulocyte Absolute 0.01 K/mm3 (0.00-0.031); Immature Granulocyte Percent A 0.1 % (0-0.5); Lymphocytes Absolute Auto 1.06 K/mm3 (0.9-3.2); Lymphocytes Percent Auto 15.3 % (18.3-44.2); Mean Corpuscular HGB Conc 32.8 g/dl (32-36); Mean Corpuscular Hemoglobin 30.5 pg (26-34); Mean Platelet Volume 9.4 fl (7.4-10.4); Monocytes Percent Auto 13.7 % (2.6-8.5); Neutrophils Absolute Auto 4.8 K/mm3 (1.3-6.7); Neutrophils Percent Auto 70.1 % (45.5-73.1); Platelet Count Result 226 k/mm3 (150-375); Red Blood Count 3.87 M/mm3 (4.6-6.20); Red Cell Distribution Width 12.3 % (11.5-14.5); White Blood Count 6.9 K/mm3 (4.5-10.0)
[2023-02-08 15:56] LABS: Albumin Level 3.7 g/dL (3.5-5.1)
[2023-02-08 15:57] LABS: Alanine Aminotransferase 14 U/L (6-50); Alkaline Phosphatase 103 U/L (38-126); Anion Gap 3 mmol/L (8-16); Aspartate Amino Transferase 27 U/L (17-59); Bilirubin,Total 0.7 mg/dL (0.2-1.3); Blood Urea Nitrogen 13 mg/dL (9-20); Calcium 8.3 mg/dL (8.4-10.2); Carbon Dioxide 28 mmol/L (22-30); Chloride 101 mmol/L (98-107); Estimated CRCL calculation 48 ml/min; Estimated Glomerular Filt Rate 58; Glucose 165 mg/dL (65-110); Potassium 3.8 mmol/L (3.4-5.0); Sodium 132 mmol/L (137-145)
[2023-02-08 16:11] LABS: CRP 15.4 mg/dL (<1.0)
[2023-02-08 16:24] LABS: Erythrocyte Sedimentation Rate 71 mm/hr (0-20)
--- NOTE | 2023-02-08 17:22 | PC.NURSE ---
Knee aspirate sent to lab, specimens obtained from Marques VITALE
[2023-02-08 18:41] LABS: Crystals Synovial Fluid None Seen (None Seen)
[2023-02-08 18:42] LABS: Appearance Synovial Fluid Cloudy (Clear); Color Synovial Fluid Yellow (Colorless); Neutrophils Synovial Fluid 85 % (0-25); Nucleated Cell Synovial Fluid 349 /uL (0-200); RBC Synovial Fluid < 2000 /uL (0-0); Source Synovial Fluid Synovial fluid
[2023-02-08 18:43] LABS: Lymphocytes Synovial Fluid 10 %; Monocytes Synovial Fluid 5 %
[2023-02-08] MEDS: KETOROLAC 15 MG/ML VIAL (*BKC) IV PUSH (19:15)
[2023-02-08 19:16] VITALS: BP 160/79; PULSE 94; RESP 16; O2SAT 97
--- NOTE | 2023-02-08 19:43 | PC.NURSE ---
1944 ON 02/08/2023 A[facility] FROM LAB CALLED TO NOTIFY THAT THE GRAM STAIN FROM THIS PT'S KNEE ASPIRATE RESULTED WITH MANY WBC's AND NO ORGANISMS SEEN.
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
[2023-02-08 19:57] VITALS: BP 142/67; PULSE 90; RESP 16; TEMP 37.8; O2SAT 100
[2023-02-08 20:09] VITALS: BP 134/80; PULSE 85; RESP 17; TEMP 37.4; O2SAT 97
--- NOTE | 2023-02-08 20:14 | ADMGEN ---
This patient, Brian Valladares, was admitted to Medical Room 257-01. Patient/family oriented to hospital policies and general routines including ID bracelet, bed and alarms, visiting hours, pain management, procedures, bathroom and other care routines, personal items, smoking policy, room service/diet, and visiting hours. Information on how to activate the Rapid Response Team has been discussed. Patient/Family are encouraged to report perceived risks to care and to ask questions if they do not understand what they are told or what they should do.
[2023-02-08 20:22] VITALS: BMI 27.1
[2023-02-08 23:10] LABS: Hemoglobin A1C 5.9 % (<5.7)
[2023-02-09 01:35] VITALS: BP 112/61; PULSE 84; RESP 16; TEMP 36.6; O2SAT 95
[2023-02-09 05:37] LABS: Mean Corpuscular HGB Conc 33.3 g/dl (32-36); Mean Corpuscular Hemoglobin 31.1 pg (26-34); Mean Corpuscular Volume 93.2 fl (80-100); Mean Platelet Volume 9.5 fl (7.4-10.4); Platelet Count Result 218 k/mm3 (150-375); Red Blood Count 3.54 M/mm3 (4.6-6.20); Red Cell Distribution Width 12.1 % (11.5-14.5); White Blood Count 6.8 K/mm3 (4.5-10.0)
[2023-02-09 05:46] VITALS: BP 126/66; PULSE 88; RESP 20; TEMP 37.3; O2SAT 95
[2023-02-09 05:53] LABS: Anion Gap 2 mmol/L (8-16); Blood Urea Nitrogen 13 mg/dL (9-20); Calcium 8.1 mg/dL (8.4-10.2); Carbon Dioxide 28 mmol/L (22-30); Chloride 102 mmol/L (98-107); Estimated CRCL calculation 48 ml/min; Estimated Glomerular Filt Rate 58; Glucose 109 mg/dL (65-110); Potassium 3.6 mmol/L (3.4-5.0); Sodium 132 mmol/L (137-145)
--- NOTE | 2023-02-09 07:21 | PM.CNOR ---
Assessment and Plan Assessment and plan (1) Acute joint effusion: Code(s): M25.40 - Effusion, unspecified joint Status: Acute (2) Osteoarthritis of right knee: Qualifiers: Osteoarthritis type: primary Qualified Code(s): M17.11 - Unilateral primary osteoarthritis, right knee Code(s): M17.11 - Unilateral primary osteoarthritis, right knee Status: Chronic Assessment and Plan: New patient evaluation for chief complaint right knee pain and swelling. History, physical exam and radiographs reviewed with the patient. Severe degenerative changes right knee noted. Now with arthritic flare up after garden activity for 1 week. Patient was originally scheduled for knee replacement which was delayed due to COVID. Aspiration in the emergency room consistent with arthritic flare up. Negative for Gram stain and crystals. Patient afebrile with normal white count. Although, elevated CRP and sed rate. Discussed the condition, nature, etiology and course of natural history with the patient. Treatment options including surgical and nonoperative treatment were reviewed. Risks and benefits of each as well as alternatives reviewed. The patient's questions were answered. Conservative treatment ice, compression and elevation. Cortisone does not seem to help this gentleman and he had 1 recently, 2 months ago. Not indicated for another cortisone injection at this time. No other signs of infection. Recommend conservative treatment with ice, pain control and therapy. Discharge home when pain under control. (3) Leg wound, right: Qualifiers: Encounter type: initial encounter Qualified Code(s): S81.801A - Unspecified open wound, right lower leg, initial encounter Code(s): S81.801A - Unspecified open wound, right lower leg, initial encounter Status: Acute Assessment and Plan: right posterior leg wound. Dry at this time. No signs of infection. Recommend Betadine ointment and cover. History of Present Illness HPI Consult date: 02/09/23 Requesting physician: Marques Mason PA-C Chief complaint: Right Knee Arthritis w/effusion,Intractible Pain Narrative: 83-year-old presented to the emergency room yesterday with severe right knee pain inability to bear weight. Patient denies injury. States he has been working in his yd for the past week doing [employer]. Symptoms began on MondayFebruary 06. Pain associated with swelling of the knee. Pain with motion. Pain is better if he does not move it. Denies numbness or tingling. Denies hip pain or low back pain. Does have a history of knee arthritis. He has cortisone injections. The last 1 was November of this year but he states they really do not give any relief. Review of Systems Constitutional: Constitutional: Denies fever(s) Eyes: Eyes: Denies blurry vision ENT: Reports Normal hearing present Cardiovascular: Cardiovascular: Denies chest pain and Denies dyspnea Respiratory: Respiratory: Denies dyspnea and Denies wheezing Gastrointestinal: Gastrointestinal: Denies abdominal pain Genitourinary: Genitourinary: Denies urinary urgency Musculoskeletal: Musculoskeletal: Reports as per HPI and Denies numbness Integumentary/Breasts: Skin/Breast: Denies changing lesions and Denies sores Neurologic: Reports Normal hearing present, Denies behavioral changes, Denies confusion, Denies numbness and Denies convulsions Psychiatric: Psychiatric: Denies behavioral changes, Denies confusion and Denies hallucinations Endocrine: Endocrine: Denies heat intolerance Hematologic/Lymphatic: Hematologic/Lymphatic: Denies easy bleeding Allergic/Immunologic: Allergic/Immunologic: Denies wheezing PMFSH Past Medical History Medical History (Updated 02/09/23 @ 07:30 by Ino Nowak MD) Cholecystitis Diabetes Essential hypertension (Unknown) Hyperlipidemia KEMI (iron deficiency anemia) Leg wound, right Osteoarthritis of right knee Preoperative
[2023-02-09] MEDS: DOCUSATE SODIUM 100 MG CAPSULE 300 MG PO (08:35)
[2023-02-09] MEDS: ENOXAPARIN 40 MG/0.4 ML SYRINGE SUB-Q (08:35)
[2023-02-09] MEDS: CELECOXIB 200 MG CAPSULE PO ×2 (08:35→17:59)
[2023-02-09] MEDS: ACETAMINOPHEN/CODEINE (*CRX) 300/30 MG TABLET 2 TAB PO (08:36)
[2023-02-09] MEDS: TAMSULOSIN HCL 0.4 MG CAPSULE PO ×2 (08:36→17:58)
[2023-02-09] MEDS: VITAMIN B COMPLEX CAPSULE 1 CAP PO (08:36)
[2023-02-09] MEDS: THERAPEUTIC MULTIVITAMINS/MINERALS TAB (*BKC) 1 TABLET PO (08:36)
[2023-02-09] MEDS: POVIDONE-IODINE 10% OINT 30 GM TUBE 1 APPLIC TOPICAL (08:38)
--- NOTE | 2023-02-09 11:38 | PCPTNOTE ---
On 02/09/23, the student, [Charline Holt], provided care and completed [facility] documentation on this patient. I have reviewed the student's documentation and agree with the findings.
--- NOTE | 2023-02-09 11:58 | PM.IMPN ---
Progress Note: A&P Assessment and Plan (1) Acute joint effusion: Code(s): M25.40 - Effusion, unspecified joint Status: Acute Assessment and Plan: Patient presented to the ED with c/o right knee pain and swelling, stiffness and locomotor restriction. Arthrocentesis was done in the ED. Gram stain negative. cultures pending. Cell count with preponderance of red cells, suggesting a traumatic tap. Ortho was consulted. PT/OT evaluation Conservative management and pain control. (2) Osteoarthritis of right knee: Qualifiers: Osteoarthritis type: primary Qualified Code(s): M17.11 - Unilateral primary osteoarthritis, right knee Code(s): M17.11 - Unilateral primary osteoarthritis, right knee Status: Chronic Assessment and Plan: As above s/p knee tap Continue pain management with TC#3 PRN, PRN IV morphine for breakthrough pain, and scheduled Celebrex per Ortho. Ortho consulted and appreciate recommendations. He was due to have knee replacement in 2019, but this was deferred due to the pandemic. Follow up outpatient for further evaluation of surgical need. (3) Malignant neoplasm of bladder, unspecified: Qualifiers: Bladder location: unspecified site Qualified Code(s): C67.9 - Malignant neoplasm of bladder, unspecified Code(s): C67.9 - Malignant neoplasm of bladder, unspecified Status: Chronic Assessment and Plan: To be aware. s/p TURP 04/2020 (4) Diabetes: Qualifiers: Diabetes mellitus type: type 2 Diabetes mellitus intermodal dispatcher insulin use: without intermodal dispatcher use Diabetes mellitus complication status: without complication Qualified Code(s): E11.9 - Type 2 diabetes mellitus without complications Code(s): E11.9 - Type 2 diabetes mellitus without complications Status: Chronic Assessment and Plan: Chronic, diet controlled. Hba1c 6.3 on 12/14/2022. Repeat A1c this admission 5.9% and stable. Continue to monitor serum glucose daily. (5) Essential hypertension: Onset Date: Unknown Code(s): I10 - Essential (primary) hypertension Status: Chronic Assessment and Plan: H/O hypertension, not currently on antihypertensives. Blood pressures reviewed and stable. Continue to monitor vitals. Plan Code status full code Discharge disposition: patient is from home and living with his . PT/OT recommendations pending. Diet: Regular Time Spent With Patient Time with patient: 15 - 25 minutes Subjective Date/time seen: 02/09/23 11:58 Interval history: He reports his right knee swelling is improved and pain is tolerable with TC#3. He is concerned about constipation, but is taking stool softeners. He worked with PT today and his leg is still stiff and he is not able to bear much weight at this time. No chills, night sweats, cough, chest pain, abd pain, N/V/D or dysuria. Review of Systems Review of Systems: All systems reviewed & are unremarkable except as noted in HPI and below Exam Narrative: General: No acute distress. Mental Status/Psych: Awake, alert and oriented x4 with clear speech. Pleasant and cooperative. Skin: Skin fair, warm, dry and intact without rashes or lesions. No open wounds. Good turgor. HEENT: Normocephalic. Sclera is non-icteric. Pupils equal and round. Oral mucosa pink and moist. Neck: No JVD. Heart: S1 and S2 regular rate and rhythm. No murmurs, gallops, or rubs auscultated. Chest: Respirations even and unlabored. Lung sounds are clear to auscultation without wheezes, rhonchi, or rales. Abdomen: Soft, obese and non-tender to palpation. Bowel sounds present in all 4 quadrants. No guarding. Extremities: Right knee with mild circumferential edema, no erythema and mild tenderness to palpation. Normothermic. Grossly normal ROM all extremities, except reduced right knee flexion d/t pain and edema. Neurological: No focal deficits. Sensation intact
[2023-02-09 19:21] VITALS: BP 119/65; PULSE 88; RESP 17; TEMP 36.6; O2SAT 99
[2023-02-10 04:50] VITALS: BP 111/61; PULSE 83; RESP 17; TEMP 36.3; O2SAT 95
[2023-02-10 05:14] LABS: Basophils Percent Auto 0.6 % (0.2-1.2); Eosinophils Absolute Auto 0.2 K/mm3 (0-0.3); Eosinophils Percent Auto 3.4 % (0-4.4); Hematocrit 33.4 % (42.0-52.0); Immature Granulocyte Absolute 0.01 K/mm3 (0.00-0.031); Immature Granulocyte Percent A 0.2 % (0-0.5); Lymphocytes Absolute Auto 0.92 K/mm3 (0.9-3.2); Lymphocytes Percent Auto 17.5 % (18.3-44.2); Mean Corpuscular HGB Conc 32.9 g/dl (32-36); Mean Corpuscular Hemoglobin 30.2 pg (26-34); Mean Corpuscular Volume 91.8 fl (80-100); Mean Platelet Volume 9.4 fl (7.4-10.4); Monocytes Absolute Auto 0.6 K/mm3 (0.1-0.6); Neutrophils Absolute Auto 3.6 K/mm3 (1.3-6.7); Neutrophils Percent Auto 67.3 % (45.5-73.1); Platelet Count Result 224 k/mm3 (150-375); Red Blood Count 3.64 M/mm3 (4.6-6.20); Red Cell Distribution Width 11.9 % (11.5-14.5); White Blood Count 5.3 K/mm3 (4.5-10.0)
[2023-02-10] MEDS: CELECOXIB 200 MG CAPSULE PO (08:40)
[2023-02-10] MEDS: DOCUSATE SODIUM 100 MG CAPSULE 300 MG PO (08:41)
[2023-02-10] MEDS: ENOXAPARIN 40 MG/0.4 ML SYRINGE SUB-Q (08:41)
[2023-02-10] MEDS: THERAPEUTIC MULTIVITAMINS/MINERALS TAB (*BKC) 1 TABLET PO (08:42)
[2023-02-10] MEDS: POVIDONE-IODINE 10% OINT 30 GM TUBE 1 APPLIC TOPICAL (08:42)
[2023-02-10] MEDS: TAMSULOSIN HCL 0.4 MG CAPSULE PO (08:42)
[2023-02-10] MEDS: VITAMIN B COMPLEX CAPSULE 1 CAP PO (08:43)
[2023-02-10 14:05] VITALS: BP 107/59; PULSE 89; RESP 18; TEMP 36.4; O2SAT 99
--- NOTE | 2023-02-10 14:48 | PM.DS ---
DS: Admitting Diagnosis Discharge Date 02/10/2023 Admitting Diagnosis Acute joint effusion Osteoarthritis of right knee DS: Discharge Diagnosis Discharge Diagnosis (1) Acute joint effusion: Code(s): M25.40 - Effusion, unspecified joint Status: Acute Assessment and Plan: Patient presented to the ED with c/o right knee pain and swelling, stiffness and locomotor restriction. Arthrocentesis was done in the ED. Gram stain negative. cultures negative. Cell count with preponderance of red cells, suggesting a traumatic tap. Ortho was consulted and recommended conservative management- ice, elevation, analgesics. PT/OT evaluation- outpatient therapy recommended and arranged at discharge. treated with Tylenol #3 with good tolerance. (2) Osteoarthritis of right knee: Qualifiers: Osteoarthritis type: primary Qualified Code(s): M17.11 - Unilateral primary osteoarthritis, right knee Code(s): M17.11 - Unilateral primary osteoarthritis, right knee Status: Chronic Assessment and Plan: As above s/p knee tap Continue pain management with TC#3 PRN, PRN IV morphine for breakthrough pain, and scheduled Celebrex per Ortho. Ortho consulted and appreciate recommendations. He was due to have knee replacement in 2019, but this was deferred due to the pandemic. Follow up outpatient for further evaluation of surgical need. (3) Diabetes: Qualifiers: Diabetes mellitus complication status: without complication Diabetes mellitus senior living insulin use: without vermin exterminator use Diabetes mellitus type: type 2 Qualified Code(s): E11.9 - Type 2 diabetes mellitus without complications Code(s): E11.9 - Type 2 diabetes mellitus without complications Status: Chronic Assessment and Plan: Chronic, diet controlled. Hba1c 6.3 on 12/14/2022. Repeat A1c this admission 5.9% and stable. Continue to monitor serum glucose daily. (4) Essential hypertension: Onset Date: Unknown Code(s): I10 - Essential (primary) hypertension Status: Chronic Assessment and Plan: H/O hypertension, not currently on antihypertensives. Blood pressures reviewed and stable. Continue to monitor vitals. DS: Summary Hospital Course Reason for hospitalization: Right knee pain Hospital Course: Patient is an 83-year old male with diet-controlled NIDDM, HLD, OA, constipation, h/o urothelial cancer, and anemia who presented to the ED via EMS with complaint of right knee pain and swelling. The patient was in his usual state of health until 3 days prior to admission.? He reported the previous week he was doing yard work/ gardening and spent some time on his knees. He endorsed diffuse pain of the right knee and associated with swelling. He has been experiencing difficulty with weightbearing as he has not been able to bear weight without severe pain for 2 days.? Patient was treated with a steroid knee injection in November.? He reported secondary concerns of a lower leg wound that occurred 2 weeks ago that he thought was healing okay.? He denied fevers, chills, nausea, vomiting, chest pain, shortness of breath, cough. There is no lower urinary tract symptom. In the ED the patient received an injection of toradol and morphine with improvement of his pain. Knee was tapped and joint effusion was sent for analysis and cultures. Ortho was consulted. Gram stain and cultures were negative for bacterial infection. Cell count was not concerning for infected joint. He was evaluated by ortho and conservative management was recommended. He was treated with rest, ice, and elevation. He received Tylenol #3 PRN and IV morphine for breakthrough pain. PT/OT was consulted. He was discharged home when pain significantly improved. He will have outpatient PT. He was counseled to follow up with his orthopedic doctor. Knee x-ray showed effusion and US venous duplex was negative for dvt. Status
== END 2023-02-10 15:55 | disposition home or self-care (01) ==
LOC: ANHED 19:22 → ANH2MED 19:59
PROVIDERS: Nurse Practitioner Family; Admitting Provider Internal Medicine; Emergency Provider Physician Assistant; PCP Family Medicine; Visit Provider Student in an Organized Health Care Education/Training Program
DX: M25.461 Effusion, right knee (principal); M17.11 Unilateral primary osteoarthritis, right knee; M71.21 Synovial cyst of popliteal space [Baker], right knee; S81.801A Unspecified open wound, right lower leg, initial encounter; M79.661 Pain in right lower leg; Z96.652 Presence of left artificial knee joint; C67.9 Malignant neoplasm of bladder, unspecified; E11.9 Type 2 diabetes mellitus without complications; I10 Essential (primary) hypertension; D50.9 Iron deficiency anemia, unspecified; F10.90 Alcohol use, unspecified, uncomplicated; Z79.1 Long term (current) use of non-steroidal anti-inflammatories (NSAID); Z79.899 Other long term (current) drug therapy
CPT/HCPCS: 20610; 36415; 73562; 80048; 80053; 83036; 85025; 85027; 85652; 86140; 87070; 87075; 87205; 89051; 89060; 93971; 96372; 96374; 97161; 97165; 97530; 97535; 99285; A9270; G0378; J1650; J1885

== ENCOUNTER 2023-02-21 11:28 | Outpatient (CLI) | payer MEDICARE, BC, SELFPAY ==
--- NOTE | ~2023-02-21 | US_ITS ---
EXAMINATION:US venous doppler LE RT INDICATION:Localized leg swelling TECHNIQUE: Multiple grayscale, color flow and Doppler images of the right lower extremity deep venous systems were obtained and reviewed. COMPARISON:02/08/2023 FINDINGS: The common femoral, superficial femoral and popliteal veins demonstrate normal respiratory variation, augmentation and compressibility. Color flow is also seen within the posterior tibial, pe roneal, greater saphenous and profunda veins. IMPRESSION: 1: No lower extremity deep venous thrombosis. Reviewed, dictated and finalized at location L.
== END 2023-02-21 11:29 | disposition home or self-care (01) ==
LOC: ANHIMG 11:31
PROVIDERS: PCP Family Medicine; Visit Provider Orthopaedic Surgery
DX: R22.41 Localized swelling, mass and lump, right lower limb (principal)
CPT/HCPCS: 93971

== ENCOUNTER 2023-03-28 09:23 | Outpatient (CLI) | payer MEDICARE, BC, SELFPAY ==
--- NOTE | ~2023-03-28 | CT_ITS ---
CT of the Abdomen and Pelvis: Indication: Bladder carcinoma Technique: 2.5 mm axial scans were obtained through the abdomen and pelvis following intravenous adm inistration of 100 cc of Omnipaque 350. Dose reduction technique was used on this scan by utilizing a utomated exposure control and iterative reconstruction technique. The dose-length product (DLP) was 1 065.41 mGy-cm. COMPARISON: 09/06/2022 Findings: Scans through the lung bases demonstrate right basilar atelectatic change. Stable 4 mm lef t lower lobe pulmonary nodule (axial image 14). The liver, spleen, pancreas, adrenals and kidneys are within normal limits. Cholecystectomy clips are present. There are atherosclerotic calcifications of the aorta. No lymphadenopathy. No bowel obstruction or bowel wall thickening. There is no evidence to suggest acute appendicitis. Images through the pelvis were performed. There is probable mild diffuse urinary bladder wall thicken ing. Prostate gland and seminal vesicles are unremarkable. No ascites. Probable left sacral insufficiency fracture present. There is a probable healed fracture deformity th e S2 vertebral body. Impression: No definite evidence for active malignancy or metastatic disease. Mild diffuse urinary bladder wall thickening suggests cystitis. Probable left sacral insufficiency fracture. Stable 4 mm left lower lobe pulmonary nodule, nonspecific. Reviewed, dictated and finalized at location . Impression: No definite evidence for active malignancy or metastatic disease. Mild diffuse urinary bladder wall thickening suggests cystitis. Probable left sacral insufficiency fracture. Stable 4 mm left lower lobe pulmonary nodule, nonspecific.
== END 2023-03-28 09:24 | disposition home or self-care (01) ==
PROVIDERS: PCP Family Medicine; Visit Provider Internal Medicine Hematology & Oncology
DX: C67.9 Malignant neoplasm of bladder, unspecified (principal); R91.1 Solitary pulmonary nodule; N32.89 Other specified disorders of bladder
CPT/HCPCS: 74177; Q9967

== ENCOUNTER 2023-09-29 07:37 | Outpatient (CLI) | payer MEDICARE, BC, SELFPAY ==
--- NOTE | ~2023-09-29 | CT_ITS ---
EXAMINATION: CT chest abdomen pelvis w con DATE: 09/29/2023 08:23 INDICATION: Malignant neoplasm of overlapping sites of the bladder TECHNIQUE: Computed tomography (CT) of the chest, abdomen, and pelvis was performed with 100 mL Omnip aque-350 intravenous contrast. Automated exposure control and iterative reconstruction technique were employed. The dose-length product was 1279.60 mGy-cm. COMPARISON: 08/11/2021 and 03/28/2023 FINDINGS: CHEST CT: Elevation the right hemidiaphragm with chronic right basilar atelectasis. There are 3 unchanged nodul es in the left lower lobe from caudal to cranial beginning along the diaphragm measuring 7 mm, 3 mm a nd 6 mm. No new or enlarging pulmonary nodules, pneumonia, pulmonary edema or pleural effusion. Heart size is normal. Atherosclerotic coronary artery calcifications. Right internal jugular central venou s port catheter with distal tip in the right atrium. No pericardial effusion. Thoracic aorta is ottoniel l in caliber with no dissection. No pathologically enlarged thoracic lymphadenopathy. Moderate thorac ic spondylosis with bridging osteophytes at multiple levels consistent with diffuse idiopathic skelet al hyperostosis (DISH). A couple chronic nonunited inferior right rib fractures. ABDOMEN/PELVIS CT: Cholecystectomy clips at the gallbladder fossa. Colonic interposition which exerts some mass effect u lolis the anterior margin of the otherwise normal liver. Spleen, pancreas, bilateral adrenal glands are normal. 4.6 cm cyst at the lower pole of the left kidney with smaller left parapelvic cyst. There is moderate right renal atrophy with small regions of cortical scarring at the upper and lower poles wh ich likely sequela prior infection or infarction. There is moderate colonic diverticulosis with a sig moid predominance. There is no adjacent inflammatory change to suggest diverticulitis. No bowel obst ruction. The partially decompressed bladder is unremarkable. Mild prostatomegaly. No free intraperito jd gas or fluid. No pathologically enlarged abdominal or pelvic lymphadenopathy. Moderate lumbar sp ondylosis with chronic mild inferior endplate central compression fracture at L4. There are also old sacral insufficiency fractures involving the bilateral sacral ala and extending across the S2 segment . Additional unchanged old fractures at the bilateral pubic bodies. IMPRESSION: 1. A few chronic left lower lobe pulmonary nodules likely sequela of old granulomatous disease. No le allyssa suspicious for metastatic disease in the chest, abdomen or pelvis. 2. Mild prostatomegaly. Reviewed, dictated and finalized at location A. BAKER IMPRESSION: 1. A few chronic left lower lobe pulmonary nodules likely sequela of old granul omatous disease. No lesion suspicious for metastatic disease in the chest, abdo men or pelvis. 2. Mild prostatomegaly.
== END 2023-09-29 07:38 | disposition home or self-care (01) ==
PROVIDERS: PCP Family Medicine; Visit Provider Internal Medicine Hematology & Oncology
DX: C67.8 Malignant neoplasm of overlapping sites of bladder (principal); N40.0 Benign prostatic hyperplasia without lower urinary tract symptoms; R91.8 Other nonspecific abnormal finding of lung field
CPT/HCPCS: 71260; 74177; Q9967

== ENCOUNTER 2023-10-25 10:15 | Outpatient (CLI) | payer MEDICARE, BC, SELFPAY ==
--- NOTE | 2023-10-25 11:30 | NEURO_ITS ---
Impression: # Non-diabetic complains of numbness of right hand. # Severe right Carpal Tunnel Syndrome. 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 # Abnormal Needle/EMG exam. # Clinical correlation recommended. Nerve Conduction Studies Anti Sensory Summary Table Stim Site NR Peak (ms) P-T Amp (?V) Site1 Site2 Delta-P (ms) Dist (cm) Timmy (m/s) Right Median Anti Sensory (2-3nd Digit) Wrist 7.3 15.4 Wrist 2-3nd Digit 7.3 14.0 19 Wrist 6.8 5.2 Wrist 2-3nd Digit 7.3 14.0 19 Right Radial Anti Sensory (Base 1st Digit) Wrist 2.8 13.0 Wrist Base 1st Digit 2.8 0.0 Right Ulnar Anti Sensory (5th Digit) Wrist 2.9 27.2 Wrist 5th Digit 2.9 14.0 48 Motor Summary Table Stim Site NR Onset (ms) O-P Amp (mV) Site1 Site2 Delta-0 (ms) Dist (cm) Timmy (m/s) Right Median Motor (Abd Poll Brev) Wrist 7.0 2.2 Elbow Wrist 6.4 37.0 58 Elbow 13.4 1.9 Right Ulnar Motor (Abd Dig Minimi) Wrist 3.0 4.0 A Elbow Wrist 6.9 34.0 49 A Elbow 9.9 4.2 B Elbow Wrist 4.4 25.0 57 B Elbow 7.4 4.1 F Wave Studies NR F-Lat (ms) L-R F-Lat (ms) Right Median (Mrkrs) (Abd Poll Brev) 31.23 Right Ulnar (Mrkrs) (Abd Dig Min) 31.95 EMG Side Muscle Nerve Root Ins Act Fibs Amp Dur Recrt Comment Right 1stDorInt Ulnar C8-T1 Nml Nml Incr >12ms Reduced Right Ext Indicis Radial (Post Int) C7-8 Nml Nml Nml Nml Nml Right Ext Digitorum Radial (Post Int) C7-8 Nml Nml Nml Nml Nml Right BrachioRad Radial C5-6 Nml Nml Nml Nml Nml Right PronatorTeres Median C6-7 Nml Nml Nml Nml Nml Right Abd Poll Brev Median C8-T1 Nml Nml Incr >12ms Reduced Right ABD Dig Min Ulnar C8-T1 Nml Nml Incr >12ms Reduced Right Biceps Musculocut C5-6 Nml Nml Nml Nml Nml Right Triceps Radial C6-7-8 Nml Nml Nml Nml Nml Right Deltoid Axillary C5-6 Nml Nml Nml Nml Nml MTDD
== END 2023-10-25 10:16 | disposition home or self-care (01) ==
LOC: ANHNEURO 10:17
PROVIDERS: PCP Family Medicine; Visit Provider Physician Assistant
DX: G56.01 Carpal tunnel syndrome, right upper limb (principal); G56.21 Lesion of ulnar nerve, right upper limb
CPT/HCPCS: 95886; 95909

== ENCOUNTER 2023-11-01 11:57 | Outpatient (CLI) | payer MEDICARE, BC, SELFPAY ==
--- NOTE | ~2023-11-01 | MMUS_ITS ---
EXAMINATION: MM diagnostic mammo unilat RT, US breast RT limited HISTORY: Palpable right breast lump with pain. Nipple sensitivity. TECHNIQUE: Additional 3-D tomosynthesis images of the breasts were performed and synthetic 2-D images were generated. CAD analysis was submitted and interpreted. High resolution Limited right breast ult rasound was performed. COMPARISON: No prior studies for comparison. BREAST PARENCHYMAL COMPOSITION: Not dense: There are scattered areas of fibroglandular density. FINDINGS: MAMMOGRAPHIC FINDINGS: There is asymmetric gynecomastia, right greater than left. Asymmetric tissue in the subareolar locati on of the right breast is consistent with breast bud. ULTRASOUND: Limited right breast ultrasound: Asymmetric hypoechoic tissue is present in the subareolar location o f the right breast corresponding to mammographic finding. IMPRESSION: 1. Probable benign asymmetric gynecomastia of the right breast. 2. Recommend 6 month follow-up diagnostic right mammogram. BI-RADS category 3, probably benign findings. Reviewed, dictated and finalized at location A. KLE STRAP SEWER IMPRESSION: 1. Probable benign asymmetric gynecomastia of the right breast. 2. Recommend 6 month follow-up diagnostic right mammogram. BI-RADS category 3, probably benign findings.
== END 2023-11-01 11:58 | disposition home or self-care (01) ==
LOC: ANHIMG 12:01
PROVIDERS: PCP Family Medicine; Visit Provider Physician Assistant
DX: N63.10 Unspecified lump in the right breast, unspecified quadrant (principal); N64.4 Mastodynia
CPT/HCPCS: 76642; 77065

== ENCOUNTER 2023-12-01 10:19 | Outpatient (CLI) | payer MEDICARE, BC, SELFPAY ==
[2023-12-01 10:58] LABS: Hematocrit 39.1 % (42.0-52.0); Hemoglobin 13.1 g/dL (14.0-18.0)
== END 2023-12-01 10:20 | disposition home or self-care (01) ==
LOC: ANHSURGERY 10:24
PROVIDERS: Anesthesiology; PCP Family Medicine; Visit Provider Plastic Surgery
DX: D64.9 Anemia, unspecified (principal); Z01.818 Encounter for other preprocedural examination
CPT/HCPCS: 36415; 85014; 85018

== ENCOUNTER 2023-12-06 03:13 | Day surgery (SDC) | payer MEDICARE, BC, SELFPAY ==
[2023-11-28 09:18] VITALS: BMI 26.8
--- NOTE | 2023-11-28 09:44 | PC.NURSE ---
Addendum entered by Katja Eduardo RN 11/28/23 09:53: NOTHING TO EAT OR DRINK FOR 8 HRS PRE-OP--11:30PM ON NIGHT BEFORE SURGERY. PT RELAYS UNDERSTANDING. Original Note: Report to the Outpatient Waiting Room, entrance under the green pavilion located off [facility], at time __6:00AM on date __12/06/23 . Planned Procedure Time: __7:30AM . Time changes happen often and if your time is changed the preop area will call you the afternoon before. - You and your visitor will be asked to self-screen and do not enter if you have any COVID symptoms. - A mask is optional within the hospital at this time. Patients may have clear liquids (water, carbonated beverages, clear teas, apple juice) until 3 hours prior to surgery with a maximum of 20 ounces. - No food from midnight until time of surgery. Take the following medications with a SIP of water the morning of surgery: ____NONE DO NOT STOP ANY OF YOUR OTHER PRESCRIPTION MEDICATIONS PRIOR TO SURGERY ?EXCEPT THE FOLLOWING Medications to discontinue per physician ____HOLD ALL VITAMINS/SUPPLEMENTS 3 DAYS PRE-OP PER ANESTHESIA Date to take last dose 12/02/23 Please no make-up, nail trinidadian, hairspray, perfume, deodorant, or body powder the day of surgery. No jewelry (including any body piercings) or valuables the day of surgery, leave them at home. Please take a shower or bath the night before, or the morning of, surgery with an antibacterial soap. Wear comfortable, loose fitting clothing. - Jewelry must be removed prior to entering the operating room. Rings and piercings that are not removed may be cut off. - The hospital will not accept responsibility for valuables. - Please leave all valuables, including medications, at home the day of surgery. If you are going home after surgery, a licensed cdl flatbed truck driver must drive you home. - NO public transportation without another adult if you receive anesthesia. - We recommend that an adult stay with you for 24 hours following discharge. - We also recommend that you do not drive, make important decision, drink alcoholic beverages, or take any drugs that were not prescribed by your health care provider for at least 24 hours after your discharge time. Follow any additional instructions given to you from your surgeon. If you or anyone in your household have experienced Covid symptoms in the past week, please notify your surgeon or the nurse liaison at the phone number below for possible testing. Telephone instructions given to ___PATIENT and asked if any additional questions and then verbalized understanding. Patient advised to call surgeon office or pre surgery nurse liaison [phone] if any additional questions.
--- NOTE | 2023-11-28 09:54 | PC.NURSE ---
Report to the Outpatient Waiting Room, entrance under the green pavilion located off [facility], at time _6:00AM on date ___12/06/23____. Planned Procedure Time: ___7:30AM . Time changes happen often and if your time is changed the preop area will call you the afternoon before. - You and your visitor will be asked to self-screen and do not enter if you have any COVID symptoms. - A mask is optional within the hospital at this time. NOTHING TO EAT OR DRINK 8 HRS PRE-OP--NOTHING AFTER 11:30PM ON THE NIGHT BEFORE SURGERY. Take the following medications with a SIP of water the morning of surgery: ___NONE DO NOT STOP ANY OF YOUR OTHER PRESCRIPTION MEDICATIONS PRIOR TO SURGERY ?EXCEPT THE FOLLOWING Medications to discontinue per physician HOLD ALL VITAMINS/SUPPLEMENTS 3 DAYS PRE-OP PER ANESTHESIA Date to take last dose 12/02/23 Please no make-up, nail yi, hairspray, perfume, deodorant, or body powder the day of surgery. No jewelry (including any body piercings) or valuables the day of surgery, leave them at home. Please take a shower or bath the night before, or the morning of, surgery with an antibacterial soap. Wear comfortable, loose fitting clothing. - Jewelry must be removed prior to entering the operating room. Rings and piercings that are not removed may be cut off. - The hospital will not accept responsibility for valuables. - Please leave all valuables, including medications, at home the day of surgery. If you are going home after surgery, a licensed backhaul driver must drive you home. - NO public transportation without another adult if you receive anesthesia. - We recommend that an adult stay with you for 24 hours following discharge. - We also recommend that you do not drive, make important decision, drink alcoholic beverages, or take any drugs that were not prescribed by your health care provider for at least 24 hours after your discharge time. Follow any additional instructions given to you from your surgeon. If you or anyone in your household have experienced Covid symptoms in the past week, please notify your surgeon or the nurse liaison at the phone number below for possible testing. Telephone instructions given to ____PATIENT and asked if any additional questions and then verbalized understanding. Patient advised to call surgeon office or pre surgery nurse liaison [phone] if any additional questions.
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
--- NOTE | 2023-12-06 06:56 | WPDHPUPDATE1 ---
History and Physical Update Update Date/Time: 12/06/23 06:56 Patient seen and examined in pre-operative holding area. No interval change in medical history or symptoms. Patient recalls previous discussion of benefits and alternatives to procedure. Continues to desire to proceed with right endoscopic possible open carpal tunnel release and right cubital tunnel release . Reviewed procedure, post-op expectations and risks including but not limited to bleeding, infection, injury to tendon/nerve/vessel, decreased hand function, stiffness, RSD, no change or worsening of symptoms. I discussed the possible use of assistants and their participation in the case. Patient stated understanding and signed the consent form wishing to proceed.
--- NOTE | 2023-12-06 06:57 | W.PM.PROC2 ---
Procedure Note - Detailed Date of Procedure 12/06/23 Pre-op Diagnosis right Carpal and cubital Tunnel syndrome, Post-op Diagnosis Same Procedure Performed right ectr and CuTR Surgeon Gregoria Hodges MD Retail Zone Specialist Scooby Marina PA-C Anesthesia MAC Description of Procedure INFORMED CONSENT: The patient was seen and examined and marked in the pre-op area.? The patient signed the consent form. PROCEDURE IN DETAIL:The patient taken back to OR on the stretcher in supine position. Time out performed with anesthesia, surgeon and staff agreeing on patient's name site and surgery to be performed SCDs were placed on the lower extremities and inflated. A tourniquet was placed on {right} upper extremity and antibiotics given IV After anesthesia administered sedation I injected {10}cc 1%lido with epi and 0.5% marcaine plain at the operative sites The?{right upper extremity}?was prepped and draped in sterile fashion the??{right upper extremity} was? exsanguinated with Esmarch bandage and tourniquet inflated to 250mmHg I made a transverse incision in the {right} volar distal wrist crease through skin and dermis with 15 blade scalpel.? Littler scissors spread down to antebrachial fascia. A small incision was made in antebrachial fascia allowing access to Carpal tunnel. I proceeded with sequential dilation staying in line with the ring finger and hugging the hook of the hamate.? I then used the synovial elevator to free any adhesions from the underside of the transverse carpal ligament. Next I was able to insert the Microaire endoscopic carpal tunnel device with direct visualization of the transverse fibers on the monitor and proceeded with complete segmental retrograde release of the ligament in its entirety.? I irrigated with normal saline and closed with 4-0 monocryl for dermis and subcuticular closure. Next, I next proceeded with making a longitudinal incision between two heads for flexor carpi ulnaris at end of {right} cubital tunnel with 15 blade scalpel.? Littler scissors were used to spread down to FCU fascia.? An incision was made in FCU fascia and ulnar nerve identified exiting cubital tunnel.? I proceeded with complete retrograde release of the cubital tunnel including 7cm proximal for the intermuscular septum.? The nerve appeared healthy with visible vaso nervorum.? There was no subluxation on full elbow range of motion. ? I irrigated with normal saline and closure with 4-0 monocryl for dermis and subcuticular. A dressing of Dermabond, 4x4, gene, and a volar wrist and posterior elbow splints were applied for patient safety, security, and comfort and secured with an libra bandage after the tourniquet was let down noting the hand was warm and well perfused. The patient was then awaken from anesthesia and transferred to the recovery room in stable condition.? Complications - none EBL- 0cc Disposition - home in stable conditions Scooby Marina PA-C was essential for positioinng, retraction, closure and dressing placement G Billing Surgery - Charge Forward: Surgery Billing ([id number] [id number] and [id number] for scooby adding modifier )
[2023-12-06 07:11] VITALS: BP 128/67; PULSE 88; RESP 16; TEMP 36.7; O2SAT 97
[2023-12-06 07:16] VITALS: BMI 26.9
[2023-12-06] MEDS: LACTATED RINGERS 1,000 ML 30 ML IV CONT (07:17)
[2023-12-06] MEDS: ceFAZolin 2 GM/D5W 50 ML 2 GM/50 ML BAG IVPB (07:30)
[2023-12-06 07:59] VITALS: BP 106/61; PULSE 74; RESP 14; O2SAT 96
[2023-12-06 08:20] VITALS: BP 132/68; PULSE 71; RESP 14; O2SAT 96
[2023-12-06 08:40] VITALS: BP 125/64; PULSE 69; RESP 14
== END 2023-12-06 08:54 | disposition home or self-care (01) ==
PROVIDERS: PCP Family Medicine; Visit Provider Plastic Surgery
PROC: 01N54ZZ Release Median Nerve, Percutaneous Endoscopic Approach (ICD-10-PCS; CPT 29848; principal; 2023-12-06 07:30)
DX: G56.01 Carpal tunnel syndrome, right upper limb (principal); G56.21 Lesion of ulnar nerve, right upper limb; E11.9 Type 2 diabetes mellitus without complications; I10 Essential (primary) hypertension; E78.5 Hyperlipidemia, unspecified; D50.9 Iron deficiency anemia, unspecified
CPT/HCPCS: 29848; 64718; J0690; J1100; J2371; J2405; J2704; J3010; J7120

== ENCOUNTER → 2023-12-20 14:36 | Outpatient (REF) | payer MEDICARE, BC, SELFPAY | LOC: ANHLAB 14:36 | PROVIDERS: PCP Family Medicine; Visit Provider Physician Assistant Surgical | DX: C44.311 Basal cell carcinoma of skin of nose (principal) | CPT/HCPCS: 88305 ==

== ENCOUNTER 2024-03-27 19:40 | Emergency (ER) | payer MEDICARE, BC, SELFPAY ==
[2024-03-27 19:40] VITALS: BP 144/81; PULSE 90; RESP 15; O2SAT 98
[2024-03-27 19:49] LABS: Glucose Point of Care 143 mg/dl (65-105)
[2024-03-27 19:54] VITALS: BP 145/89; PULSE 89; RESP 17; O2SAT 95
--- NOTE | 2024-03-27 20:11 | ECG_ITS ---
Test Date: 2024-03-27 20:35:57 Measurements Intervals [place] Rate: 73 P: -17 RI: 168 QRS: -11 QRSD: 81 T: 26 QT: 375 QTc: 416 Interpretive Statements SINUS RHYTHM BASELINE ARTIFACT- I, II, AVR, AVF NORMAL ECG No previous ECG available for comparison Electronically Signed On 03-28-2024 06:30:41 CDT by Dante Lacey D.O.
[2024-03-27 20:38] LABS: Appearance Urine Cloudy (Clear); Bacteria Urine None Seen /hpf; Bilirubin Urine Negative (Negative); Blood Urine Negative (Negative); Color Urine Yellow (Yellow); Glucose Urine UA Negative (Negative); Ketones Urine Negative (Negative); Leukocyte Esterase Ur Negative LEU/UL (Negative); Nitrate Urine Negative (Negative); Non Pathogenic Casts 0-2; Protein Urine Trace mg/dL (Negative); RBC Urine 0-2 /hpf (0-2); Specific Grav Ur 1.019 (1.001-1.035); Squamous Epithelial Cell Urine None Seen /hpf (Few); Urobilinogen Urine 0.2 mg/dL (<2.0); WBC Urine 0-5 /hpf (0-3); pH Urine 7.5 (5.0-9.0)
[2024-03-27 20:38] LABS: Basophils Absolute Auto 0.1 K/mm3 (0.0-0.1); Basophils Percent Auto 0.8 % (0.2-1.2); Eosinophils Absolute Auto 0.1 K/mm3 (0-0.3); Eosinophils Percent Auto 1.8 % (0-4.4); Hematocrit 37.6 % (42.0-52.0); Hemoglobin 12.7 g/dL (14.0-18.0); Immature Granulocyte Absolute 0.01 K/mm3 (0.00-0.031); Immature Granulocyte Percent A 0.2 % (0-0.5); Lymphocytes Absolute Auto 1.17 K/mm3 (0.9-3.2); Lymphocytes Percent Auto 19.6 % (18.3-44.2); Mean Corpuscular HGB Conc 33.8 g/dl (32-36); Mean Corpuscular Hemoglobin 31.4 pg (26-34); Mean Corpuscular Volume 92.8 fl (80-100); Mean Platelet Volume 9.5 fl (7.4-10.4); Monocytes Absolute Auto 0.7 K/mm3 (0.1-0.6); Monocytes Percent Auto 11.2 % (2.6-8.5); Neutrophils Percent Auto 66.4 % (45.5-73.1); Platelet Count Result 221 k/mm3 (150-375); Red Blood Count 4.05 M/mm3 (4.6-6.20); Red Cell Distribution Width 12.2 % (11.5-14.5)
[2024-03-27 20:46] LABS: Acetaminophen < 10 ug/mL (10-30); Ethanol < 10 mg/dL (<10); Salicylate < 1.0 mg/dL (2-20)
[2024-03-27 20:48] LABS: Alanine Aminotransferase 9 U/L (6-50); Alkaline Phosphatase 98 U/L (38-126); Anion Gap 7 mmol/L (4-12); Aspartate Amino Transferase 23 U/L (17-59); Bilirubin,Total 0.5 mg/dL (0.2-1.3); Blood Urea Nitrogen 17 mg/dL (9-20); Calcium 9.2 mg/dL (8.4-10.2); Carbon Dioxide 27 mmol/L (22-30); Chloride 104 mmol/L (98-107); Estimated CRCL calculation 35 ml/min; Estimated Glomerular Filt Rate 44; Glucose 147 mg/dL (65-110); Potassium 4.1 mmol/L (3.4-5.0); Sodium 138 mmol/L (137-145)
[2024-03-27 20:51] LABS: Amphetamine Screen Urine Negative (Negative); Barbiturate Screen Urine Negative (Negative); Benzodiazepines Screen Urine Negative (Negative); Cannabinoid Screen Urine Negative (Negative); Cocaine Screen Urine Negative (Negative); Methadone Screen Urine Negative (Negative); Opiate Screen Urine Negative (Negative); Phencyclidine Screen Urine Negative (Negative)
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
[2024-03-27 21:06] LABS: Add Urine Microscopic? YES
[2024-03-27 21:30] VITALS: BP 125/87; PULSE 82; RESP 21; O2SAT 96
[2024-03-27 21:56] LABS: Free T4 Free Thyroxine 1.04 ng/mL (0.78-2.19)
[2024-03-27 22:38] LABS: Influenza A QL RT-PCR Negative (Negative); Influenza B QL RT-PCR Negative (Negative); RSV RNA, RT-PCR Negative (Negative); SARS-CoV-2 RNA PCR Negative (Negative)
[2024-03-28] VITALS: BP 130/84; PULSE 69; RESP 17; O2SAT 98
[2024-03-28 02:18] VITALS: TEMP 36.6
[2024-03-28 02:25] VITALS: BP 127/90; PULSE 77; RESP 21; O2SAT 97
== END 2024-03-28 02:25 | disposition home or self-care (01) ==
PROVIDERS: Emergency Provider Physician Assistant; PCP Family Medicine
DX: R45.851 Suicidal ideations (principal); Z11.52 Encounter for screening for COVID-19; I10 Essential (primary) hypertension; E78.5 Hyperlipidemia, unspecified; E11.9 Type 2 diabetes mellitus without complications; D50.9 Iron deficiency anemia, unspecified; M17.11 Unilateral primary osteoarthritis, right knee; Z96.651 Presence of right artificial knee joint; Z90.49 Acquired absence of other specified parts of digestive tract; Z85.828 Personal history of other malignant neoplasm of skin; Z79.899 Other long term (current) drug therapy
CPT/HCPCS: 36415; 80053; 80307; 81001; 82948; 84439; 84443; 85025; 87637; 93005; 99284

== ENCOUNTER 2024-04-01 09:00 | Outpatient (CLI) | payer MEDICARE, BC, SELFPAY ==
--- NOTE | ~2024-04-01 | CT_ITS ---
CT abdomen pelvis w con Ordering provider: Dayron Ruvalcaba MD History: 84 years Male with . MAL RONAK OF OVERLAPPING SITE OF BLADDER . Comparison: September 29, 2023 Technique: CT abdomen and pelvis with IV and without oral contrast. Automated exposure control and it erative reconstruction technique were employed. The dose-length product was 878.18 mGy-cm. 100 ML Omn ipaque 350 was given IV. Findings: VISUALIZED LOWER CHEST: Dependent atelectatic changes. Multiple nodules in the left lower lobe unchan ged from previous examination the largest measures 1.9 cm. UPPER ABDOMINAL ORGANS: Liver: Postoperative changes with lobectomy unchanged from previous examination. Gallbladder: Status post cholecystectomy. Spleen: Normal. Stomach/duodenum: Normal. Pancreas: Normal. Adrenals: Normal. Kidneys: Left lower pole cyst measuring 4.4 cm. Parapelvic cysts are also seen. Atrophic right kidney is noted. No ureteric stones. PELVIC ORGANS: The bladder is underfilled with thickened wall. Evaluation for cystitis or infiltrativ e process is advised.. Slightly enlarged prostate. BOWEL AND MESENTERY: Colon: Mild sigmoid diverticulosis without diverticulitis. No evidence of appendicitis. Small Bowel: Normal. No obstruction. Peritoneum/mesentery: No free air or free fluid. No mesenteric lymphadenopathy. RETROPERITONEUM: Mild atheromatous disease of the abdominal aorta. No retroperitoneal lymphadenopat hy. Small para-aortic lymph nodes are seen with the largest measures 0.8 cm. MUSCULOSKELETAL: Superficial soft tissues: The superficial soft tissues are normal. Bones: Age appropriate degenerative changes of the spine. Pubic symphysitis. Healing fracture in the right 10th and 11th ribs. IMPRESSION: No significant change from previous examination. 1. Multiple nodules in the left lower lobe area unchanged from previous examination. 2. Atrophic right kidney with left renal cyst. 3. Thickened wall of the bladder. Further evaluation and clinical correlation advised. Reviewed, dictated and finalized at location A. IMPRESSION: No significant change from previous examination. 1. Multiple nodules in the left lower lobe area unchanged from previous examin ation. 2. Atrophic right kidney with left renal cyst. 3. Thickened wall of the bladder. Further evaluation and clinical correlation advised.
== END 2024-04-01 09:01 | disposition home or self-care (01) ==
PROVIDERS: PCP Family Medicine; Visit Provider Internal Medicine Hematology & Oncology
DX: C67.8 Malignant neoplasm of overlapping sites of bladder (principal); R91.8 Other nonspecific abnormal finding of lung field
CPT/HCPCS: 74177; Q9967

== ENCOUNTER 2024-05-03 07:51 | Outpatient (CLI) | payer MEDICARE, BC, SELFPAY ==
[2024-05-03 09:46] LABS: Hemoglobin A1C 6.2 % (<5.7); Urine Cotinine NEGATIVE
== END 2024-05-03 07:52 | disposition home or self-care (01) ==
PROVIDERS: PCP Family Medicine; Visit Provider Orthopaedic Surgery
DX: M17.11 Unilateral primary osteoarthritis, right knee (principal); Z01.818 Encounter for other preprocedural examination
CPT/HCPCS: 80307; 83036; 86850; 86900; 86901; 87081

== ENCOUNTER 2024-05-14 12:34 | Outpatient (CLI) | payer MEDICARE, BC, SELFPAY ==
--- NOTE | ~2024-05-14 | MM_ITS ---
EXAMINATION: MM diagnostic talia RT w aiyana HISTORY: Follow-up breast asymmetry TECHNIQUE: Additional 3-D tomosynthesis images of the right breast were performed and synthetic 2-D i mages were generated. CAD analysis was submitted and interpreted. COMPARISON: 11/01/2023 BREAST PARENCHYMAL COMPOSITION: Not dense: There are scattered areas of fibroglandular density. FINDINGS: Stable asymmetric gynecomastia the breasts. No new suspicious masses, calcifications or arc hitectural distortion to suggest malignancy. IMPRESSION: 1. Stable gynecomastia. No evidence for malignancy. 2. Recommend follow-up clinical management for gynecomastia. BI-RADS Category 2: Benign finding(s). Reviewed, dictated and finalized at location B.
== END 2024-05-14 12:35 | disposition home or self-care (01) ==
LOC: ANHIMG 12:35
PROVIDERS: PCP Family Medicine; Visit Provider Physician Assistant
DX: R92.8 Other abnormal and inconclusive findings on diagnostic imaging of breast (principal)
CPT/HCPCS: 77061; 77065; G0279

== ENCOUNTER 2024-06-26 08:50 | Outpatient (CLI) | payer MEDICARE, SELFPAY | END 2024-06-26 08:51 | disposition home or self-care (01) | LOC: ANHAUDIO 08:54 | PROVIDERS: PCP Family Medicine; Visit Provider Physician Assistant | DX: H90.3 Sensorineural hearing loss, bilateral (principal) | CPT/HCPCS: 92557; 92567 ==

== ENCOUNTER 2024-07-03 10:14 | Outpatient (CLI) | payer MEDICARE, SELFPAY ==
--- NOTE | ~2024-07-03 | NM_ITS ---
EXAMINATION: NM manpreet stress w perfusion DATE: 07/03/2024 12:33 INDICATION: Other forms of dyspnea. TECHNIQUE: Rest images were obtained following intravenous administration of 8 mCi Tc99m tetrofosmin (Myoview). The patient was infused intravenously with Lexiscan (regadenoson). Then, 29.4 mCi Tc99m te trofosmin (Myoview) was administered intravenously, and stress images were obtained. Data was reconst ructed into short axis and horizontal and vertical long axis SPECT images. Gated SPECT images were al so obtained. COMPARISON: Myocardial perfusion imaging 08/16/2018 FINDINGS: There is no definite reversible or fixed perfusion abnormality to suggest ischemia or infar ction. There is no segmental wall motion abnormality. Left ventricular ejection fraction measures 6 4%. IMPRESSION: 1. No definite ischemia or infarct. 2. Normal left ventricular ejection fraction measuring 64%. Reviewed, dictated and finalized at location A.
--- NOTE | 2024-07-03 10:22 | EST_ITS ---
Patient Info Name: Brian Valladares Age: 84 years : 1940 Gender: Male Ht: 75 in Wt: 215 lbs BSA: 2.28 m2 HR: 77 bpm BP: 134 / 74 mmHg Exam Date: 07/03/2024 11:25 AM Exam Location: Echo Lab Patient Status: Outpatient Admit Date: 07/03/2024 Staff Ordering Physician: Dante Lacey DO Attending Provider: Dante Lacey DO Exercise Technologist: Claribel Tamayo RDCS Exercise Physician: Dante Lacey DO Exam Type: CA stress manpreet w NM Study Info A regadenoson stress test was performed. Summary 1. 1. Negative lexiscan stress test for ischemic ST changes by ECG criteria. 2. 2. Stable hemodynamics throughout the test. 3. 3. Nuclear scan to follow and will be reported separately. Please correlate with it. 4. 4. Patient informed of the above results. Protocol: Lexiscan Stress ECG Details Stage: REST Duration (min): 0 min : 59 sec HR (bpm): 77 SBP (mmHg): 134 DBP (mmHg): 74 Stage: REST Duration (min): 6 min : 25 sec HR (bpm): 71 SBP (mmHg): 134 DBP (mmHg): 74 Stage: STAGE 1 Duration (min): 1 min : 0 sec HR (bpm): 77 SBP (mmHg): 127 DBP (mmHg): 79 Stage: RECOVERY Duration (min): 1 min : 0 sec HR (bpm): 84 SBP (mmHg): 127 DBP (mmHg): 79 Stage: RECOVERY Duration (min): 2 min : 0 sec HR (bpm): 92 SBP (mmHg): 127 DBP (mmHg): 79 Stage: RECOVERY Duration (min): 3 min : 0 sec HR (bpm): 81 SBP (mmHg): 137 DBP (mmHg): 70 Stage: RECOVERY Duration (min): 3 min : 6 sec HR (bpm): 81 SBP (mmHg): 137 DBP (mmHg): 70 Rest HR: 71 bpm Peak HR: 92 bpm Rest Sys BP: 134 mmHg Peak Sys BP: 137 mmHg Max Pred HR: 134 bpm % Max Pred HR: 69 % Target HR: 114 bpm Max RPP: 12,604 bpm*mmHg Termination Reason: Completed protocol Cardiac Symptoms: Shortness of breath Total Time: 1 min : 0 sec Rest Blue BP: 74 mmHg Peak Blue BP: 70 mmHg Total Dose: 0.4 mg Resting ECG Sinus rhythm. Stress ECG No ST changes. Arrhythmias None. Report Signatures
== END 2024-07-03 10:15 | disposition home or self-care (01) ==
LOC: ANHCARD 10:18
PROVIDERS: PCP Family Medicine; Visit Provider Internal Medicine Cardiovascular Disease
DX: R06.09 Other forms of dyspnea (principal)
CPT/HCPCS: 78452; 93017; A9502; J2785

== ENCOUNTER 2024-09-30 08:27 | Outpatient (CLI) | payer MEDICARE, SELFPAY ==
--- NOTE | ~2024-09-30 | CT_ITS ---
Clinical Indication: Bladder carcinoma CT Scan of the Chest, Abdomen, and Pelvis with Contrast: Technique: Contiguous sections were acquired throughout the chest, abdomen, and pelvis after intraven ous administration of 100 cc of Omnipaque 350. Dose reduction technique was used on this scan by fela zavalaing automated exposure control and iterative reconstruction technique. The dose-length product (DL P) was 883.73 mGy-cm. Comparison: 04/01/2024 Findings: There is no evidence of any significant mediastinal, hilar or axillary lymphadenopathy. The mediastin al soft tissues appear normal. There is no evidence of pleural or pericardial effusion. Stable right basilar atelectatic change. Stable 4 mm left lower lobe pulmonary nodule (axial image 57 ). The liver, spleen, pancreas, and adrenal glands are within normal limits. Cholecystectomy clips are p resent. Right kidney relatively atrophic. Left renal cysts are present. There are atherosclerotic ary cifications of the aorta. No lymphadenopathy. No bowel obstruction or bowel wall thickening. There is no evidence to suggest acute appendicitis. Urinary bladder is unremarkable. Prostate gland enlarged. No ascites. Impression: No definite evidence for metastatic disease. Stable 4 mm left lower lobe pulmonary nodule. Reviewed, dictated and finalized at [facility]. EMS ANALYST DEVELOPER Impression: No definite evidence for metastatic disease. Stable 4 mm left lower lobe pulmonary nodule.
--- OUTSIDE RECORDS SUMMARY | 2024-10-03 11:57 | XMS_ITS | Clinical Summary ---
Author Organization [facility] Address [address] [place] [address] Care Team Providers Care Supervisor Counseling And Guidance Name Role Phone Nitin Aldana MD Primary Care Provider [phone] Allergies Active Allergy Reactions Criticality Noted Date Comments Penicillins Rash Medium 09/29/2009 Medications tamsulosin (FLOMAX) 0.4 mg capsule tamsulosin 0.4 mg capsule Active polyethylene glycol 3350 (MIRALAX) 17 gram/dose Powder Take 17 Grams by mouth daily. Dissolve in 8 ounces of fluid and drink entire liquid Active cyanocobalamin 1,000 mcg Tablet Take 1,000 mcg by mouth daily. Active docusate sodium (COLACE) 100 mg capsule Take 100 mg by mouth 2 times daily. Active ferrous sulfate 325 mg (65 mg iron) tablet Take 325 mg by mouth daily. Active Active Problems Problem Noted Date Diagnosed Date Malignant neoplasm of overlapping sites of bladd er 06/22/2020 Encounters Date Type Department Care Team Description 10/01/2024 External Device Data STL ABSTRACTION Provider, Abstract 09/30/2024 Orders Only [facility]] Oncology and Hematology - [place] [address] [place] [id number] Dayron Ruvalcaba MD from Last 3 Months Family History Relation Name Status Comments Daughter 1 Alive Daughter 2 Alive Father Mother Son Alive Social History Tobacco Use Types Packs/Day Years Used Date Smoking Tobacco: Never Smokeless Tobacco: Never Tobacco Cessation:Counseling Given: Not Answered Alcohol Use Standard Drinks/Week Comments Yes 3 (1 standard drink = 0.6 oz pur e alcohol) 3 BOTTLES OF BEER A WEEK. Sex and Gender Information Value Date Recorded Sex Assigned at Not on file Legal Sex Male 3:42 PM CDT Gender Identity Not on file Sexual Orientation Not on file Last Filed Vital Signs Vital Sign Reading Time Taken Comments Blood Pressure 121/66 04/08/2024 11:44 AM CDT Pulse 82 04/08/2024 11:44 AM CDT Temperature 36.8 ??C (98.2 ??F) 04/08/2024 11:44 AM C DT Respiratory Rate 18 04/08/2024 11:44 AM CDT Oxygen Saturation 95% 04/08/2024 11:44 AM CDT Inhaled Oxygen Concentration - - Weight 96.2 kg (212 lb) 04/08/2024 11:44 AM CDT Height 190.5 cm (6' 3 ) 03/21/2023 10:38 AM CDT Body Mass Index 26.5 03/21/2023 10:38 AM CDT Plan of Treatment Upcoming Encounters Date Type Department Care Team (Late st Contact Info) Description 10/07/2024 11:30 AM CURATOR Office Visit [facility]3] Oncology and Hematology - [place] [address] [place] [address] [address] [place] [address] Dayron Ruvalcaba MD [address] [place] [address] Health Maintenance Due Date Last Done Comments DTAP/TDAP/TD VACCINES (1 - Tdap) 1959 Traditional Medicare (ACO) Annual Wellness Visit 01/21 PNEUMOCOCCAL VACCINE 65+ YEARS (1 of 1 - PCV) 01/21/19 88 ZOSTER VACCINE (1 of 2) 01/22/1988 RSV VACCINE (60+ or ) (1 - 1-dose 75+ series) 2013 INFLUENZA VACCINE (#1) 2024 05/23/2020 Procedures Procedure Name Priority Date/Time Associated Diagnosis Comments CT CHEST ABDOMEN PELVIS W CONT Routine 09/30/2024 9:38 AM CURATOR from Last 3 Months Results * CT CHEST ABDOMEN PELVIS W CONT (09/30/2024 9:38 AM CURATOR) Anatomical Region Laterality Modality Chest Other us Dayron Ruvalcaba MD CT ORDERABLES Final Result from Last 3 Months Insurance MEDICARE PART A AND B [employer] BLUE ACCESS/TRUE BLUE PPO Care Teams Supervisor Counseling And Guidance Relationship Specialty Start Date End Date Nitin Aldana MD [address] [place] [id number] PCP - General Family Practice 05/27/20
--- OUTSIDE RECORDS SUMMARY | 2024-10-03 11:57 | XMS_ITS | Continuity of Care Document ---
Author Organization [facility] [place] [id number] [place] [address] [address] [place] [address] Phone Care Team Providers Care Electrical Equipment Tester Name Role Phone Nemesio Anders Unavailable Unavailable Procedures Procedure Date Eye Exam Established Pt Office/outpatient Visit, Est Eye Exam, New Patient Advance Directives Directive Yes / No Effective Date File Name No Information Encounters Encounter Description Practice Location Reason(s) For Visit Diagnoses Date Provider Providers Copied on Encounter [facility], [address] [place] [address] [address], [place], [place], [id number], [place] tel:[phone] SEC [facility] No Information 0-200 8 Krishnasamy Nemesio. [address] [address], [place], [address], [place]. tel:[phone] Office/outpat ient Visit, Est [facility], [address] [place] [address] [address], [place], [place], [id number], [place] tel:[phone] [facility] No Information Apr-1 5-200 8 Krishnasamy Nemesio. [address] [facility] [address], [place], [address], [place]. tel:[phone] [facility], [address] [place] [address] [address], [place], [place], [id number], tel:[phone] [facility] No Information Aug-0 7-200 8 Krishnasamy Nemesio. [address] [facility] [address], [place], [address], [place]. tel:[phone] Family History Family Member Type Diagnosis Age At Onset No Information Payers Payer name Insurance type Covered alliance party ID Authoriza tion(s) [place] [id number] [facility] DESIREE [id number] Social History Type Description Quantity Date Captured [...]
--- OUTSIDE RECORDS SUMMARY | 2024-10-03 11:57 | XMS_ITS | Referral Summary ---
Author Organization [facility] [address] Address [address] [place] [address] Care Team Providers Care Vineyardist Name Role Phone Nitin Aldana MD Primary Care Provider Allergies Active Allergy Reactions Criticality Noted Date Comments Penicillins Rash Medium 09/29/2009 Social History Tobacco Use Types Packs/Day Years Used Date Smoking Tobacco: Never Assessed Personal Safety Answer Date Recorded Getting School Help Needed Not on file 11/25 Sex and Gender Information Value Date Recorded Sex Assigned at Not on file Legal Sex Male 11:35 AM ELECTROMECHANISMS DESIGN DRAFTER Gender Identity Not on file Sexual Orientation Not on file Plan of Treatment Not on file Insurance MEDICARE [facility] Care Teams Vineyardist Relationship Specialty Start Date End Date Nitin Aldana MD [address] [place] [address] PCP - General Family Medicine 11/03/20
--- OUTSIDE RECORDS SUMMARY | 2024-10-03 11:57 | XMS_ITS | Clinical Summary ---
Author Organization [facility] [address] Address [address] [place] [address] Care Team Providers Care Search Engine Marketing Specialist Name Role Phone Nitin Aldana MD Primary [...] on file Legal Sex Male 11:35 AM PHOTO CARTOGRAPHER Gender Identity Not on file Sexual Orientation Not on file Plan of Treatment Not on file Insurance MEDICARE [facility] Care Teams Search Engine Marketing Specialist Relationship Specialty Start Date End Date Nitin Aldana MD [address] [place] [address] PCP - General Family Medicine 11/03/20
--- OUTSIDE RECORDS SUMMARY | 2024-10-03 11:57 | XMS_ITS | Encounter Summary ---
Author Organization [facility] Address [address] [place] [address] Care Team Providers Care Keno Manager Name Role Phone Nitin Aldana MD Primary Care Provider [phone] Encounter Details Date Type Department Care Team (Late Contact Info) Description 09/18/2020 Chart Note [facility] Radiation Therapy [address] [place] [address] [place] [address] [place] [address] Social History Tobacco Use Types Packs/Day Years Used Date Smoking Tobacco: Never Smokeless Tobacco: Never Alcohol Use Standard Drinks/Week Comments Yes 3 (1 standard drink = 0.6 oz pur e alcohol) 3 BOTTLES OF BEER A WEEK. Sex and Gender Information Value Date Recorded Sex Assigned at Not on file Legal Sex Male 3:42 PM CDT Gender Identity Not on file Sexual Orientation Not on file COVID-19 Exposure Response Date Recorded In the last month, have you been in contact with someone who was confirmed or suspected to have Coronavirus / COVID-19? No / Unsure 08/24/2020 8:50 AM AMERICANIZATION TEACHER documented as of this encounter Plan of Treatment Upcoming Encounters Date Type Department Care Team (Late Contact Info) Description 10/07/2024 11:30 AM AMERICANIZATION TEACHER Office Visit [facility] Oncology and Hematology - [place] [address] [facility] [address] [facility] [address] [place] [address] Dayron Ruvalcaba MD [address] [facility] [address] [place] [address] documented as of this encounter Visit Diagnoses Not on filedocumented in this encounter Care Teams Keno Manager Relationship Specialty Start Date End Date Nitin Aldana MD [address] [facility] [address] [facility] [address] [place] [address] PCP - General Family Practice 05/27/20 documented as of this encounter
== END 2024-09-30 08:28 | disposition home or self-care (01) ==
LOC: ANHIMG 08:31
PROVIDERS: PCP Family Medicine; Visit Provider Internal Medicine Hematology & Oncology
DX: R91.1 Solitary pulmonary nodule (principal); C67.8 Malignant neoplasm of overlapping sites of bladder
CPT/HCPCS: 71260; 74177; Q9967

== ENCOUNTER 2024-12-23 11:41 | Outpatient (CLI) | payer MEDICARE, BC, SELFPAY ==
--- NOTE | ~2024-12-23 | US_ITS ---
Renal-Bladder ultrasound Clinical History: Diabetes Technique: Real-time sonographic imaging of the kidneys and urinary bladder was performed. Findings: The right kidney measures 10.0 cm in length and the left kidney measures 11.4 cm. There is no hydronephrosis or renal calculus identified. Renal cortical echogenicity is increased. Renal cysts are present. The urinary bladder is moderately distended at the time of this exam. No intraluminal echoes are iden tified. No abnormal wall thickening is seen. Impression: Echogenic kidneys suggest chronic medical renal disease. Reviewed, dictated and finalized at location M. Impression: Echogenic kidneys suggest chronic medical renal disease.
== END 2024-12-23 11:42 | disposition home or self-care (01) ==
LOC: MICIMG 11:42
PROVIDERS: PCP Family Medicine; Visit Provider Internal Medicine Nephrology
DX: E11.22 Type 2 diabetes mellitus with diabetic chronic kidney disease (principal); N18.32 Chronic kidney disease, stage 3b
CPT/HCPCS: 76775

== ENCOUNTER 2024-12-24 10:37 | Outpatient (CLI) | payer MEDICARE, BC, SELFPAY ==
--- NOTE | ~2024-12-24 | US_ITS ---
EXAMINATION: US venous doppler LE RT DATE: 12/24/2024 11:13 INDICATION: Localized right lower limb swelling and erythema. TECHNIQUE: Grayscale ultrasound images without and with compression and Doppler ultrasound images of the right lower extremity veins were obtained. COMPARISON: None. FINDINGS: The visualized portions of right common femoral vein, profunda (deep) femoral vein, femoral vein, pop liteal vein, peroneal trunk, posterior tibial veins, peroneal veins, gastrocnemius vein and greater s aphenous vein outflow are patent. 6.8 x 1.4 x 2.2 cm Shaikh's cyst at the right popliteal fossa. IMPRESSION: 1. No deep venous thrombosis in the right lower limb. 2. Moderate sized Shaikh's cyst at the left popliteal fossa. Reviewed, dictated and finalized at location A.
--- OUTSIDE RECORDS SUMMARY | 2024-12-24 11:44 | XMS_ITS | Continuity of Care Document ---
Author Organization [facility] [place] Address [address] [place] [address] [address] [place] [address] Phone Care Team Providers Care Industrial Health Engineer Name Role Phone Nemesio Anders Unavailable Unavailable Procedures Procedure Date Eye Exam Established Pt Office/outpatient Visit, Est Eye Exam, New Patient Advance Directives Directive Yes / No Effective Date File Name No Information Encounters Encounter Description Practice Location Reason(s) For Visit Diagnoses Date Provider Providers Copied on Encounter [facility], [address] [place] [address] [address], [place], [place], [id number], [place] tel:[phone] SEC [facility] No Information 0-200 8 Krishnasamy Nemesio. [address] [address], [place], [address], [place]. tel:[phone] Office/outpat ient Visit, Est [facility], [address] [place] [address] [address], [place], [place], [id number], [place] tel:[phone] SEC [facility] No Information Apr-1 5-200 [address] [facility], [place], [address], [place]. tel:[phone] [facility], [address] [place] [address] [address], [place], [place], [id number], [place] tel:[phone] SEC [facility] No Information Aug-0 7-200 [address] [facility], [place], [address], [place]. tel:[phone] Family History Family Member Type Diagnosis Age At Onset No Information Payers Payer name Insurance type Covered constitution party ID Authoriza tion(s) [place] DESIREE [id number] [facility] Out Of State DESIREE [id number] Social History Type Description Quantity Date Captured [...]
--- OUTSIDE RECORDS SUMMARY | 2024-12-24 11:44 | XMS_ITS | Clinical Summary ---
Author Organization [facility] Arnoldo pryor Yanetmarilyn Address [address] [place] [address] Care Team Providers Care Package Handler Name Role Phone Nitin Aldana MD Primary Care Provider [phone] Allergies Active Allergy Reactions Criticality Noted Date [...] Encounters Date Type Department Care Team Description 11/13/2024 External Device Data STL ABSTRACTION Provider, Abstract 10/30/2024 External Device Data ST[facility] ABSTRACTION Provider, Abstract 10/29/2024 External Device Data ST[facility] ABSTRACTION Provider, Abstract 10/08/[address] [facility] Oncology and Hematology [place] [address] [place] [address] Dayron Ruvalcaba MD 10/07/2024 11:30 AM ORDNANCE ARTIFICER HELPER Office Visit [facility] Oncology and Hematology - [place] [address] [place] [address] Dayron Ruvalcaba MD Malignant neoplasm of overlapping sites of bladder (CMS/HCC) (Primary Dx) 10/02/2024 External Device Data STL ABSTRACTION Provider, Abstract 10/01/2024 External Device Data ST[facility] ABSTRACTION Provider, Abstract 09/30/[address] [facility] Oncology and Hematology [facility] [address] [facility] [address] [place] [address] Dayron Ruvalcaba MD from Last 3 Months [...] Sign Reading Time Taken Comments Blood Pressure 128/71 10/07/2024 11:49 AM ORDNANCE ARTIFICER HELPER Pulse 85 10/07/2024 11:49 AM ORDNANCE ARTIFICER HELPER Temperature 36.5 C (97.7 F) 10/07/2024 11:49 AM ORDNANCE ARTIFICER HELPER Respiratory Rate 15 10/07/2024 11:4 9 AM ORDNANCE ARTIFICER HELPER Oxygen Saturation 94% 10/07/2024 11: 49 AM ORDNANCE ARTIFICER HELPER Inhaled Oxygen Concentration - - Weight 97.4 kg (214 lb 12.8 oz) 025 11:49 AM ORDNANCE ARTIFICER HELPER Height 190.5 cm (6' 3 ) 03/21/2023 10:3 8 AM CDT Body Mass Index 26.85 03/21/2023 10:38 AM CDT Plan of Treatment Upcoming Encounters Date Type Department Care Team (Late st Contact Info) Description 04/07/2025 10:15 AM CDT Office Visit [facility] Oncology and Hematology [facility] [address] [place] [address] Dayron Ruvalcaba MD [address] [facility] [address] [place] [address] Health Maintenance Due Date Last Done Comments DTAP/TDAP/TD VACCINES (1 - Tdap) 1959 Traditional Medicare (ACO) Annual Wellness Visit 01/21 PNEUMOCOCCAL VACCINE 50+ YEARS (1 of 1 - PCV) 01/21/19 88 ZOSTER VACCINE (1 of 2) 01/22/1988 RSV VACCINE (60+ or ) (1 - 1-dose 75+ series) 2013 INFLUENZA VACCINE (#1) 2024 05/23/2020 Procedures Procedure Name Priority Date/Time Associated Diagnosis Comments BASIC METABOLIC PANEL Routine 10/07/2024 12:59 PM ORDNANCE ARTIFICER HELPER COMPREHENSIVE METABOLIC PANEL Routine 10/07/2024 12:54 PM ORDNANCE ARTIFICER HELPER CT CHEST ABDOMEN PELVIS W CONT Routine 09/30/2024 9:38 AM ORDNANCE ARTIFICER HELPER from Last 3 Months Results * BASIC METABOLIC PANEL (10/07/2024 12:59 PM ORDNANCE ARTIFICER HELPER) Blood us Dayron Ruvalcaba MD CHEMISTRY ORDERABLES Final Resu lt * COMPREHENSIVE METABOLIC PANEL (10/07/2024 12:54 PM ORDNANCE ARTIFICER HELPER) Blood us Dayron Ruvalcaba MD CHEMISTRY ORDERABLES Final Resu lt * CT CHEST ABDOMEN PELVIS W CONT (09/30/2024 9:38 AM ORDNANCE ARTIFICER HELPER) Anatomical Region Laterality Modality Chest Computed Tomogra phy us Dayron Ruvalcaba MD CT ORDERABLES Final Result from Last 3 Months Insurance MEDICARE PART A AND B [employer] BLUE ACCESS/TRUE BLUE PPO Care Teams Package Handler Relationship Specialty Start Date End Date Nitin Aldana MD [address] [place] [address] PCP - General Family Practice 05/27/20
--- OUTSIDE RECORDS SUMMARY | 2024-12-24 11:44 | XMS_ITS | Encounter Summary ---
Author Organization [facility] Address [address] [place] [address] Care Team Providers Care Press Feeder Name Role Phone Nitin Aldana MD Primary Care Provider [phone] Encounter Details Date Type Department Care Team (Late Contact Info) Description 09/18/2020 Chart Note [facility] Radiation Therapy [address] [place] [address] [place] [address] [place] [address] Social History Tobacco Use Types [...] COVID-19? No / Unsure 08/24/2020 8:50 AM CATTLE EXAMINER documented as of this encounter Plan of Treatment Upcoming Encounters Date Type Department Care Team (Late Contact Info) Description 04/07/2025 10:15 AM CDT Office Visit [facility] Oncology and Hematology - [place] [address] [facility] [address] [place] [address] Dayron Ruvalcaba MD [address] [facility] [address] [place] [address] documented as of this encounter Visit Diagnoses Not on filedocumented in this encounter Care Teams Press Feeder Relationship Specialty Start Date End Date Nitin Aldana MD [address] [facility] [address] [place] [address] PCP - General Family Practice 05/27/20 documented as of this encounter
--- OUTSIDE RECORDS SUMMARY | 2024-12-24 11:45 | XMS_ITS | Clinical Summary ---
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
--- OUTSIDE RECORDS SUMMARY | 2024-12-24 11:45 | XMS_ITS | Referral Summary ---
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
== END 2024-12-24 10:38 | disposition home or self-care (01) ==
PROVIDERS: PCP Family Medicine; Visit Provider Internal Medicine Cardiovascular Disease
DX: R60.0 Localized edema (principal); M71.21 Synovial cyst of popliteal space [Baker], right knee
CPT/HCPCS: 93971

== ENCOUNTER 2025-07-14 08:27 | Outpatient (CLI) | payer MEDICARE, BC, SELFPAY ==
--- OUTSIDE RECORDS SUMMARY | 2008-06-30 07:15 | XMS_ITS | Continuity of Care Document ---
Author Organization Located within [facility] Address [address] [place] [address] [address] [place] [address] Phone Care Team Providers Care Home Energy Rater Name Role Phone Nemesio Anders Unavailable Unavailable Procedures Procedure Date Eye Exam Established Pt Office/outpatient Visit, Est Eye Exam, New Patient Advance Directives Directive Yes / No Effective Date File Name No Information Encounters Encounter Description Practice Location Reason(s) For Visit Diagnoses Date Provider Providers Copied on Encounter [facility], [address] [place] [address] [address], [place], [place], [id number], [place] tel:[phone] [facility] No Information 0-200 8 Krishnasamy Nemesio. [address] [address], [place], [address], [place]. tel:[phone] Office/outpat ient Visit, Est [facility], [address] [place] [address] [address], [place], [place], [id number], [place] tel:[phone] SEC [facility] No Information Apr-1 5-200 8 Krishnasamy Nemesio. [address] [facility], [place], [address], [place]. tel:[phone] [facility], [address] [place] [address] [address], [place], [place], [id number], [place] tel:[phone] [facility] No Information Aug-0 7-200 8 Krishnasamy Nemesio. [address] [facility], [place], [address], [place]. tel:[phone] Family History Family Member Type Diagnosis Age At Onset No Information Payers Payer name Insurance type Covered green party ID Authoriza tion(s) [place] DESIREE [id number] [facility] [place] DESIREE [id number] Social History Type Description Quantity Date Captured Comments Sex Male Smoking Status No Information Chief Complaint And Reason For Visit No Information Reason For Referral Reason For Referral No Information History Of Present Illness Encounter Date Complaint History Of Prese nt Illness No Information Functional Status Date Functional Assessmen t No Information Instructions Date Instruction Additional Infor mation No Information Assessments Type Assessment Date No Information Patient Care Teams Name Effective Dates (start - stop) Status Members No Information
--- OUTSIDE RECORDS SUMMARY | 2025-07-14 08:38 | XMS_ITS | Encounter Summary ---
Author Organization [facility] Address [address] [place] [address] Care Team Providers Care Medical Records Coder Name Role Phone Nitin Aldana MD Primary Care Provider [phone] Encounter Details Date Type Department Care Team (Late Contact Info) Description 09/18/2020 Chart Note [facility] Radiation Therapy [address] [place] [address] [place] [address] [place] [address] Social History Tobacco Use Types [...] COVID-19? No / Unsure 08/24/2020 8:50 AM CLIENT CONSULTANT documented as of this encounter Plan of Treatment Upcoming Encounters Date Type Department Care Team (Late Contact Info) Description 09/26/2025 10:30 AM CLIENT CONSULTANT Office Visit [facility] Oncology and Hematology - [place] [address] [facility] [address] [place] [address] Dayron Ruvalcaba MD [address] [facility] [address] [place] [address] documented as of this encounter Visit Diagnoses Not on filedocumented in this encounter Care Teams Medical Records Coder Relationship Specialty Start Date End Date Nitin Aldana MD [address] [facility] [address] [facility] [address] [place] [address] PCP - General Family Practice 05/27/20 documented as of this encounter
--- OUTSIDE RECORDS SUMMARY | 2025-07-14 08:38 | XMS_ITS | Clinical Summary ---
Author Organization [facility] Address [address] [place] [address] Care Team Providers Care Clay Artist Name Role Phone Nitin Aldana MD Primary Care Provider [phone] Allergies Active Allergy Reactions Criticality Noted Date [...] Take 325 mg by mouth daily. Active hydroCHLOROthia zide 25 mg tablet Take 1 Tablet by mouth daily. Active Active Problems Problem Noted Date Diagnosed Date Malignant neoplasm of overlapping sites of bladd er 06/22/2020 Encounters Date Type Department Care Team Description 07/02/2025 External Device Data STL ABSTRACTION Provider, Abstract 06/24/2025 External Device Data ST[facility] ABSTRACTION Provider, Abstract 05/27/2025 External Device Data [facility] ABSTRACTION Provider, Abstract 05/13/2025 External Device Data [facility] ABSTRACTION Provider, Abstract 05/13/2025 External Device Data ST[facility] ABSTRACTION Provider, Abstract 04/29/2025 External Device Data STL ABSTRACTION Provider, Abstract 04/29/2025 External Device Data STL ABSTRACTION Provider, Abstract 04/22/2025 External Device Data STL ABSTRACTION Provider, Abstract from Last 3 Months Family History Relation [...] Sign Reading Time Taken Comments Blood Pressure 122/65 04/07/2025 9:36 AM CDT Pulse 97 04/07/2025 9:36 AM CDT Temperature 36.6 C (97.9 F) 04/07/2025 9:36 AM CDT Respiratory Rate 15 04/07/2025 9:36 AM CDT Oxygen Saturation 93% 04/07/2025 9:36 AM CDT Inhaled Oxygen Concentration - - Weight 98 kg (216 lb) 04/07/2025 9:36 AM CDT Height 190.5 cm (6' 3) 03/21/2023 10:38 AM CDT Body Mass Index 27 03/21/2023 10:38 AM CDT Plan of Treatment Upcoming Encounters Date Type Department Care Team (Late st Contact Info) Description 09/26/2025 10:30 AM PROCESS SAFETY SPECIALIST Office Visit [facility] Oncology and Hematology - [place] [address] [facility] [address] [place] [address] Dayron Ruvalcaba MD [address] [facility] [address] [place] [address] Health Maintenance Due Date Last Done Comments DTAP/TDAP/TD VACCINES (1 - Tdap) 1959 PNEUMOCOCCAL VACCINE 50+ YEARS (1 of 1 - PCV) 01/21/19 88 ZOSTER VACCINE (1 of 2) 01/22/1988 RSV VACCINE (60+ or ) (1 - 1-dose 75+ series) 2013 INFLUENZA VACCINE (#1) 2025 05/23/2020 Insurance MEDICARE PART A AND B [employer] BLUE ACCESS/TRUE [employer] PPO Care Teams Clay Artist Relationship Specialty Start Date End Date Nitin Aldana MD [address] [place] [address] PCP - General Family Practice 05/27/20
--- OUTSIDE RECORDS SUMMARY | 2025-07-14 08:38 | XMS_ITS | Clinical Summary ---
Author Organization 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
--- NOTE | 2025-07-14 09:06 | ECHO_ITS ---
Patient Info Name: Brian Valladares Age: 85 years : 1940 Gender: Male Ht: 75 in Wt: 218 lbs BSA: 2.30 m2 BP: 144 / 76 mmHg Technical Quality: Poor Exam Date: 07/14/2025 9:07 AM Patient Status: O Admit Date: 07/14/2025 Exam Type: CA echo dop color flow w con Complete two-dimensional, color flow and Doppler transthoracic echocardiogram is performed with contrast to opacify the left ventricle and to improve the deliniation of the left ventricle endocardial borders. Commodity Loan Clerk: Rachel Burton Attending Provider: Dante Lacey DO Contrast/Agitated Saline Contrast/Ag. Saline: Definity Amount: 2.00 ml Administered By: Rachel Burton New IV Access: Left and Outer Forearm Site Condition: IV removed, Site dressing applied and No extravasation Reason for Poor Study: poor echocardiographic windows Summary 1. Left ventricular chamber dimension is normal. 2. Left ventricular systolic function is normal, estimated at 60-65. 3. The left ventricular diastolic function is grade I diastolic dysfunction. 4. Contrast administered improved wall motion interpretation. 5. E/e' 9 is minimally elevated. 6. There is trace tricuspid valve regurgitation. 7. No pulmonary hypertension, estimated pulmonary arterial systolic pressure is 25 mmHg. Left Ventricle E/e' 9 is minimally elevated. Left ventricular chamber dimension is normal. Left ventricular systolic function is normal, estimated at 60-65. The left ventricular diastolic function is grade I diastolic dysfunction. Contrast administered improved wall motion interpretation. Right Ventricle Right ventricular chamber dimension is normal. Right ventricular systolic function is normal. Left Atria Left atrial chamber dimension is normal. Right Atria Right atrial chamber dimension is normal. Aortic Valve The aortic valve is trileaflet. There is no aortic valve stenosis. There is no aortic valve regurgitation. Pulmonic Valve There is no pulmonic regurgitation. Mitral Valve There is no mitral valve stenosis. There is no mitral valve regurgitation. Tricuspid Valve There is trace tricuspid valve regurgitation. No pulmonary hypertension, estimated pulmonary arterial systolic pressure is 25 mmHg. Pericardium/Pleural There is no pericardial effusion. Inferior Vena Cava Normal inferior vena cava with >50% collapse upon inspiration consistent with normal right atrial pressure, 5 mmHg. Aorta The aortic root size at the sinus of Valsalva is normal. Left Ventricular Outflow Tract Name Value Normal LVOT 2D LVOT Diameter 2.0 cm LVOT Doppler LVOT Peak Velocity 108 cm/s LVOT Peak Gradient 3 mmHg LVOT Mean Gradient 2 mmHg LVOT VTI 22 cm LVOT VTI/AV VTI Ratio 0.8 LVOT Stroke Volume 71 ml LVOT CO 4.5 l/min LVOT CI 2.0 l/min/m2 Pulmonic Valve Name Value Normal RVOT Doppler RVOT Peak Velocity 63 cm/s RVOT Peak Gradient 2 mmHg PV Doppler PV Peak Velocity 80 cm/s PV Peak Gradient 3 mmHg Mitral Valve Name Value Normal MV Diastolic Function MV E Peak Velocity 65 cm/s MV A Peak Velocity 103 cm/s MV E/A 0.6 MV Decel Time (PW) 184 ms Tricuspid Valve Name Value Normal TV Regurgitation Doppler TR Peak Velocity 226 cm/s TR Peak Gradient 19 mmHg Estimated PAP/RSVP RA Pressure 5 mmHg <=5 PA Systolic Pressure 25 mmHg <36 RV Systolic Pressure 25 mmHg <36 Aorta Name Value Normal Ascending Aorta Ao Root Diameter (MM) 3.5 cm Ao Root Diam Index (MM) 1.5 cm/m2 Aortic Valve Name Value Normal AV Doppler AV Peak Velocity 132 cm/s AV Peak Gradient 4 mmHg AV Mean Gradient 2 mmHg AV VTI 28 cm AV Area (Cont Eq VTI) 2.5 cm2 >=3.0 AV Area (Cont Eq Timmy) 2.6 cm2 AV DI (Timmy) 0.82 AV Regurgitation 2D LVOT Area 3.2 cm2 Ventricles Name Value Normal LV Dimensions 2D/MM IVS Diastolic Thickness (2D) 0.7 cm 0.6-1.0 IVS Diastole Thickness (MM) 1.1 cm 0.6-1.0 LVID Diastole (2D) 4.7 cm 4.2-5.8 LVID Diastole (MM) 5.3 cm 4.2-5.8 LVIW Diastolic Thickness (2D) 0.9 cm 0.6-1.0 LVIW Diastolic Thickness (MM) 0.9 cm 0.6-1.0 LVID Systole (2D) 3.0 cm 2.5-4.0 LVID Systole (MM) 3.2 cm 2.5-4.0 LVOT Diameter 2.0 cm LV Mass (2D Cubed) 124.56 g 88.00-224.00 LV Mass Index (2D Cubed) 54 g/m2 49-115 Relative Wall Thickness (2D) 0.40 <=0.42 LV Mass (MM Cubed) 197.44 g 88.00-224.00 LV Mass Index (MM Cubed) 86 g/m2 49-115 Relative Wall Thickness (MM) 0.35 LV Fractional Shortening/Ejection Fraction 2D/MM LV Fractional Shortening (2D) 35 % 25-43 LV Fractional Shortening (MM) 40 % 25-43 LV EF (MM Teichholz) 70 % LV EF (2D Teichholz) 64 % LV Diastolic Volume (4C MOD) 103 ml LV EF (4C MOD) 69 % LV Diastolic Volume (2C MOD) 83 ml LV EF (2C MOD) 60 % LV Diastolic Volume (BP MOD) 94 ml 62-150 LV Diastolic Volume Index (BP MOD) 41 ml/m2 34-74 LV Systolic Volume (BP MOD) 33 ml 21-61 LV Systolic Volume Index (BP MOD) 14 ml/m2 11-31 LV EF (BP MOD) 66 % 52-72 LV Diastolic Length (4C) 9.0 cm LV Systolic Length (4C) 7.3 cm LV Stroke Volume (4C MOD) 71 ml Atria Name Value Normal LA Dimensions LA Dimension (MM) 3.9 cm 3.0-4.0 LA Volume (4C A-L) 43 ml LA Volume (BP A-L) 56 ml RA Dimensions RA Systolic Major [place] Length (4C) 5.1 cm 2.1-2.7 RA Area (4C) 13.8 cm2 <=18.0 Report Signatures
[2025-07-14] MEDS: PERFLUTREN LIPID MICROSPHERES 1.5 ML VIAL DILUTED TO 10 ML TOTAL VOLUME IV PUSH (09:50)
--- NOTE | 2025-07-14 11:28 | IVDEFINITY ---
Prior to administration of IV Definity the patient was educated on the risks and benefits of the imaging enhancing agent including potential adverse side effects. The patient verbalized understanding. Allergies were verified. No exclusion criteria were identified and at least one of the following inclusion criteria were met: 1) physician request, 2) patient technically difficult to image (per the [place] Society of Echocardiography guidelines of two or more segments not discernable within the apical view), or 3) questionable left ventricular function. ?
== END 2025-07-14 08:28 | disposition home or self-care (01) ==
PROVIDERS: PCP Family Medicine; Visit Provider Internal Medicine Cardiovascular Disease
DX: R60.0 Localized edema (principal)
CPT/HCPCS: C8929; Q9957

== ENCOUNTER 2025-08-25 08:29 | Outpatient (CLI) | payer MEDICARE, BC, SELFPAY ==
--- NOTE | ~2025-08-25 | CT_ITS ---
EXAM/PROCEDURE: CT chest abdomen pelvis w con HISTORY: Malignant neoplasm of overlapping sites of bladder COMPARISON: September 30, 2024 TECHNIQUE: IV contrast enhanced CT of the chest abdomen and pelvis. FINDINGS: In the chest, no mediastinal or hilar lymphadenopathy or masses. Heart and great vessels appear stable normal in size. Right internal jugular Mediport central catheter tip extending to the lower SVC. No pericardial effusion. Mild fibrotic appearing changes in the right lung base. Stable 7 mm left lower lobe nodule image 65 series 4. Central large airways patent. Diffuse degenerative changes in the bones which otherwise appear intact. In the abdomen and pelvis, no bulky mesenteric or retroperitoneal lymphadenopathy or masses. Adrenal glands kidneys spleen pancreas stomach and liver appear stable. 4.5 cm simple left renal cyst unchanged. No hydroureteronephrosis. Nonobstructive bowel gas pattern with no free air free fluid or pneumatosis. Para moderately severe diverticular disease with no gross acute diverticulitis. Prostate appears stable. Tiny fat-containing inguinal hernias. Urinary bladder is nondistended with prominent thickness of the bladder wall likely due to nondistention. No AAA. IMPRESSION: No gross evidence of metastatic or recurrent malignant disease. There are several chronic appearing findings as above. Reviewed, dictated and finalized at location A. R SALES ASSOCIATE IMPRESSION: No gross evidence of metastatic or recurrent malignant disease. There are sever al chronic appearing findings as above.
[2025-08-25 12:44] LABS: Estimated Glomerular Filt Rate 48
== END 2025-08-25 08:30 | disposition home or self-care (01) ==
PROVIDERS: PCP Family Medicine; Visit Provider Internal Medicine Hematology & Oncology
DX: C67.8 Malignant neoplasm of overlapping sites of bladder (principal)
CPT/HCPCS: 71260; 74177; Q9967